=== PATIENT | male | born 1945 | race Caucasian/White ===

== ENCOUNTER → 2019-06-13 15:31 | Outpatient (CLI) | payer OTHER, SELFPAY ==
--- NOTE | 2019-06-13 | DI.ECHO.S_ITS ---
[place] +---------+ : : [address] : [address] [address] : : : : [id number] : : : : Phone: [phone]+ Echocardiogram Report + + :Name: NEY ARCHER Study Date: 06/13/2019 Height: 70 in : :[facility] Weight: 240 lb : : Gender: Male BSA: 2.3 m2 : :: 1945 Age: 74 yrs BP: 100/74 mmHg: :Reason For Study: QTC : : Performed By: Sonam Hill : :Referring: NEY MCCOY : + + Interpretation Summary The patient was in a fib/flutter during the exam. The study quality was technically difficult. There is mild proximal septal thickening noted. The left ventricular ejection fraction is normal. There are no obvious focal wall motion abnormalities noted but poor endocardial definition reduces the sensitivity for the detection of such. Borderline right ventricular enlargement. The right ventricular systolic function is normal. The right ventricular systolic pressure is estimated to be at least 36 mmHg based on an estimated right atrial pressure of 3 mm Hg. Moderate left atrial enlargement. No hemodynamically significant valvular abnormalities. There is no prior echocardiogram noted for this patient. Procedure: A two-dimensional transthoracic echocardiogram with color flow and Doppler was performed. There is no prior echocardiogram noted for this patient. The study quality was technically difficult. The heart rate ranged between 78-91 bpm during the study. The patient was in a fib/flutter during the exam. Left Ventricle: The left ventricle is normal in size. There is mild proximal septal thickening noted. The ejection fraction is estimated to be 60-65%. The left ventricular ejection fraction is normal. There are no obvious focal wall motion abnormalities noted but poor endocardial definition reduces the sensitivity for the detection of such. Diastolic function could not be accurately assessed due to atrial fibrillation. Right Ventricle: Borderline right ventricular enlargement. The right ventricular systolic function is normal. Atria: The left atrium is moderately dilated. The right atrium is mildly dilated. There is no Doppler evidence for an interatrial shunt. Mitral Valve: The mitral valve is grossly normal. There is mild mitral annular calcification. There is no mitral valve stenosis. There is mild mitral regurgitation. Aortic Valve: The aortic valve opens well. The aortic valve is trileaflet. The aortic valve is grossly normal. There is no aortic valve stenosis. Tricuspid Valve: The tricuspid valve leaflets are thin and pliable. There is mild tricuspid regurgitation. The right ventricular systolic pressure is estimated to be at least 36 mmHg based on an estimated right atrial pressure of 3 mm Hg. Pulmonic Valve: The pulmonic valve is not well seen, but is grossly normal. There is trace pulmonic regurgitation. Great Vessels: The aortic root is normal size. The ascending aorta is at the upper limits of normal in size. The aortic arch is mildly enlarged. The IVC is of normal diameter and collapses greater than 50% with a sniff. This suggests a low right atrial pressure of 3 mm Hg. Pericardium/ Pleura There is no pericardial effusion. There is no pleural effusion. MMode/2D Measurements & Calculations LVIDd: 4.8 cm Ao root diam: 3.4 cm LVIDs: 2.9 cm Aortic Jxn: 2.7 cm FS: 41.0 % asc Aorta Diam: 3.7 cm EPSS: 0.40 cm Ao Arch Diam (Prox Trans): 3.4 cm IVSd: 1.0 cm LVPWd: 0.83 cm LV jones. diameter/BSA (cm/m^2): 2.1 LV sys. diameter/BSA (cm/m^2): 1.3 LA dimension: 5.0 cm RA long axis: 5.9 cm LA A2 area: 27.9 cm2 RA area: 24.4 cm2 LA A4 area: 28.5 cm2 RA vol: 85.9 ml LA length (vol): 6.4 cm RA : 38.1 ml/m2 LA vol: 105.1 ml IVC diam: 1.6 cm LA vol index: 46.6 ml/m2 RVDd major: 6.6 cm RVD1 (basal): 4.8 cm RVD2 (mid): 4.1 cm Doppler Measurements & Calculations Ao V2 max: 182.7 cm/sec MV E max kenton: 119.9 cm/sec Ao V2 mean: 119.3 cm/sec MV A max kenton: 49.5 cm/sec Ao max P.3 mmHg MV E/A: 2.4 Ao mean P.5 mmHg Med Peak E' Kenton: 9.4 cm/sec Ao V2 VTI: 31.1 cm E/E' med: 12.8 Lat Peak E' Kenton: 12.7 cm/sec E/E' lat: 9.4 E/e' average: 11.1 MV dec time: 0.18 sec MV P1/2t: 52.3 msec TR max kenton: 289.2 cm/sec MV P1/2t max kenton: 119.3 cm/sec TR max P.4 mmHg MVA(P1/2t): 4.2 cm2 PA V2 max: 96.2 cm/sec PA V2 mean: 64.8 cm/sec PA mean P.9 mmHg PA Accel Time: 0.14 sec Electronically signed by: Omar Alejandra M.D. on Reading Physician:06/13/2019 07:27 PM
== END ==
PROVIDERS: Family Provider Family Medicine; PCP Family Medicine; Visit Provider Physician Assistant
DX: I08.1 Rheumatic disorders of both mitral and tricuspid valves (principal); I25.5 Ischemic cardiomyopathy
CPT/HCPCS: 93306

== ENCOUNTER 2021-02-18 12:14 | Inpatient (IN) | payer MEDICARE, OTHER, SELFPAY ==
[2021-02-18] VITALS (11 sets, daily range): BP systolic 136–160; BP diastolic 77–103; PULSE 87–103; RESP 17–34; TEMP 36.6–37.2; O2SAT 86–97; BMI 37.3; BMI 34.7
--- NOTE | 2021-02-18 12:38 | DI.RAD.S_ITS ---
PROCEDURE: XR CHEST 1V INDICATIONS: suspected sepsis TECHNIQUE: One view of the chest was acquired. COMPARISON: [facility] [place], CR, SPINE CERVICAL 2 OR 3VW, 02/24/2017, 15:14. FINDINGS: Surgical changes and devices: None. Lungs and pleura: Scattered subsegmental scarring and/or atelectasis. No acute consolidation. No pleural effusions or pneumothorax. Low lung volumes. Mediastinum: Mediastinal contours appear normal. Heart size is normal. Bones and chest wall: No suspicious bony lesions. Overlying soft tissues appear unremarkable. IMPRESSION: Scattered subsegmental atelectasis and/or scarring. No focal consolidation. If there is persistent clinical diagnostic uncertainty, continued surveillance with short interval radiographic followup after treatment is recommended. Dictated by: Garrick Qureshi M.D. on 02/18/2021 at 13:37 Approved by: Garrick Qureshi M.D. on 02/18/2021 at 13:39
[2021-02-18] MEDS: SODIUM CHLORIDE 0.9% 1,000 ML 1000 ML IV (12:54)
[2021-02-18 12:55] LABS: Add Manual Diff / Slide Review NO; Basophils Absolute Auto 100 /uL (0-100); Basophils Percent Auto 0.5 % (0-2); Eosinophils Absolute Auto 0 /uL (0-450); Eosinophils Percent Auto 0.3 % (2-4); Hematocrit 44.5 % (41-53); Hemoglobin 14.5 g/dL (13.5-17.5); Lymphocytes Absolute Auto 1400 /uL (1100-4500); Lymphocytes Percent Auto 10.1 % (25-40); Mean Corpuscular HGB Conc 32.5 % (30-36); Mean Corpuscular Hemoglobin 31.6 PG (26-34); Mean Corpuscular Volume 97.2 fL (80-100); Monocytes Absolute Auto 1200 /uL (0-900); Monocytes Percent Auto 8.6 % (3-14); Neutrophils Absolute Auto 11400 /uL (1500-7000); Neutrophils Percent Auto 80.5 % (50-75); Platelet Count 160 X10^3/uL (150-400); Red Blood Cell Count 4.58 X10^6/uL (4.5-5.9); Red Cell Distribution Width 14.8 % (11.6-14.8); White Blood Cell Count 14.2 X10^3/uL (4.5-11.0)
[2021-02-18 13:03] LABS: HCO3 ABG 37 mmol/L (22-26); Oxygen Saturation ABG 94 % (95-100); PCO2 ABG 65.8 mmHg (35-45); PO2 ABG 77 mmHg (80-100); TCO2 ABG 39 mmol/L (21-31); pH ABG 7.36 (7.35-7.45)
[2021-02-18 13:05] LABS: Alanine Aminotransferase 75 IU/L (<50); Albumin 3.7 g/dL (3.5-5.0); Albumin Globulin Ratio 1.2 (1.0-2.8); Alkaline Phosphatase 157 U/L (38-126); Aspartate Aminotransferase 131 IU/L (17-59); BUN Creatinine Ratio 15.7 (6-22); Blood Urea Nitrogen 16 mg/dL (9-20); Carbon Dioxide 33 mmol/L (22-32); Chloride 95 mmol/L (98-107); Estimated Glomerular Filt Rate > 60.0 mL/min (>60); Globulin 3.2 g/dL (1.7-4.1); Glucose 206 mg/dL (80-110); HEMOLYSIS < 15 (0-50); Lipase 21 U/L (23-300); Sodium 134 mmol/L (137-145); Total Protein 6.9 g/dL (6.3-8.2)
[2021-02-18 13:05] LABS: Fractionated Inspired Oxygen 30
[2021-02-18 13:06] LABS: Lactate (Lactic Acid) 1.1 mmol/L (0.7-2.1)
[2021-02-18 13:21] LABS: Procalcitonin 0.21 ng/mL (<0.5)
--- NOTE | 2021-02-18 14:16 | CM.MNRNOTE ---
bought phone into patient to call his . was not home. pt left a message.
[2021-02-18 14:49] LABS: COVID19 - ADMIT (NP swab/PCR) Negative (Negative)
--- NOTE | 2021-02-18 15:34 | PC.NURSE ---
pt had liquid BM, was cleaned and removed from the [employer] intern and a brief was placed underneath him
[2021-02-18 16:16] LABS: Creatine Kinase 2612 U/L (55-170)
[2021-02-18 16:22] LABS: NT-proBNP (BNP-Adult 18+) 1450 pg/mL (<125); Troponin I 0.059 ng/mL (0.01-0.034)
--- NOTE | 2021-02-18 16:47 | DI.CT.S_ITS ---
PROCEDURE: CT ANGIO CHEST PE PROTOCOL INDICATIONS: fall 1 week ago, broken arm, ? PE TECHNIQUE: After the administration of intravenous contrast, 2 mm thick sections acquired from the pulmonary apices to the posterior costophrenic angles. 3-dimensional maximum intensity projection (MIP) coronal and sagittal reformats were then acquired through the thorax. For radiation dose reduction, the following was used: automated exposure control, adjustment of mA and/or kV according to patient size. COMPARISON: None. FINDINGS: Image quality: Excellent. Pulmonary arteries: Pulmonary arteries enlarged in size and measures up to 3.8 cm in main pulmonary trunk series 4, image 66. There are no intraluminal filling defects to suggest central pulmonary embolism. Lungs and pleura: There is biapical scarring. Scattered atelectasis in periphery of bilateral lung james are seen with small ill-defined airspace opacity in posterior medial right lower lobe concerning for small right lower lobe infiltrate. [id number] centrilobular emphysema is also seen. No pleural effusions or pneumothorax. Central and peripheral airways are patent. Mediastinum: Heart size is enlarged, without pericardial effusion. No mediastinal or hilar adenopathy. Thoracic aorta is normal in caliber and enhancement. Esophagus is normal in caliber, without hiatal hernia. Bones and chest wall: No suspicious bony lesions. Ribs and thoracic spine appear intact throughout. Thyroid gland is within normal limits. No axillary or supraclavicular adenopathy. Abdomen: Visualized upper abdominal solid organs appear normal in the early arterial phase of enhancement. IMPRESSION: 1. No evidence of pulmonary emboli. No thoracic aortic aneurysm or dissection. 2. Enlarged main pulmonary artery size concerning for pulmonary vascular hypertension. 3. Suggestion of small patchy infiltrate/atelectasis in posterior medial aspect of right lower lobe. Scattered atelectasis in periphery of bilateral lung james. [id number] centrilobular emphysema. 4. No gross mediastinal or hilar lymphadenopathy by size criteria. Dictated by: Lionel Kennedy M.D. on 02/18/2021 at 17:27 Approved by: Lionel Kennedy M.D. on 02/18/2021 at 17:35
--- NOTE | 2021-02-18 16:47 | DI.CT.S_ITS ---
PROCEDURE: CT ABDOMEN PELVIS W CON INDICATIONS: fall 1 week ago, broken arm, ? PE TECHNIQUE: After the administration of intravenous contrast, axial sections acquired from the lung bases to the pubic symphysis. Coronal and sagittal reformats were performed. For radiation dose reduction, the following was used: automated exposure control, adjustment of mA and/or kV according to patient size. COMPARISON: None. FINDINGS: Image quality: Excellent. Lung bases: Right basilar dependent atelectasis/small infiltrate is seen. Heart: Heart size is enlarged, no pericardial effusion. ABDOMEN: Liver: There is hepatic steatosis and hepatomegaly. No discrete hepatic lesion. Gallbladder: Unremarkable. Biliary ducts: Unremarkable. Pancreas: Unremarkable. Spleen: Unremarkable. Adrenal Glands: Unremarkable. Kidneys and Ureters: No obstructing renal stone or hydronephrosis. Exophytic cyst in midpole of left kidney is seen measures 2.8 cm in size. Stomach and Bowel: There is no bowel obstruction. Appendix is visualized and is within normal limits. Mild sigmoid colon wall thickening is seen. Sigmoid diverticulosis is seen, no evidence of acute diverticulitis. No gastric or small bowel wall thickening. No abscess collection. Peritoneum: No abnormal intraperitoneal fluid. No free air. Ventral Wall: No hernias. Abdominal Nodes: No retroperitoneal or mesenteric adenopathy by size criteria. Vessels: Aorta and inferior vena cava are normal in size. Moderate atherosclerotic calcifications in abdominal aorta is seen. PELVIS: Pelvic Organs: Unremarkable. Bladder: Unremarkable. Pelvic Nodes: No enlarged lymph nodes. Miscellaneous: No hernias are seen. Bones: Degenerative endplate changes are noted at T12-L1 and L1-2 levels. Degenerative disc disease at L4-5 and L5-S1 levels are also seen. IMPRESSION: 1. Finding is concerning for sigmoid colitis. Appendix is within normal limits. Sigmoid diverticulosis is seen without evidence of acute diverticulitis. No abscess collection. No free fluid or free air. 2. Hepatomegaly and hepatic steatosis. No discrete hepatic lesion. 3. Please refer to CT chest findings. 4. 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 Dictated by: Lionel Kennedy M.D. on 02/18/2021 at 17:36 Approved by: Lionel Kennedy M.D. on 02/18/2021 at 17:41
--- NOTE | 2021-02-18 16:52 | ED.SOB ---
HPI - SOB/Dyspnea General Chief Complaint: Altered Mental Status Stated Complaint: COPD exacerbation, recent fall. Time Seen by Provider: 02/18/21 12:48 Source: EMS Mode of arrival: EMS Limitations: altered mental status and physical limitation History of Present Illness HPI Narrative: This is a 75-year-old comes to the emergency department with complaint of fall today. Patient had a fall about 2 weeks ago was on the floor for approximately 1-2 days, family states he fell about 10 steps. His was gone because she is receiving chemotherapy and return home and found him. He went to [facility] was told he had a broken arm, possibly some cracked ribs and was discharged home. Patient has having difficulty getting about. He is having quite a bit pain. He has had increasing shortness of breath. He does have a known history of COPD is typically on 3 L nasal cannula. Patient has also been having bloody stools with diarrhea recently. Denies any lightheadedness. He denies any headache at this time. No neck pain. He does have some lower back discomfort. He has had some chronic back pain but this is worse than his typical. He denies any radiation down his legs. Patient does have some pain were he was told he had his ribs. Patient has not had any nausea or vomiting. His states that his mentation he has had some confusion. He has not been acutely worsening. He does have a history of CHF, hypertension and takes narcotics chronically. Related Data Home Medications Medication Instructions Recorded Confirmed albuterol sulfate 3 ml INH BID #0 10/13/16 01/22/21 alfuzosin 10 mg PO QDAY #0 10/13/16 01/22/21 calcium carbonate 1 tab PO BID #0 10/13/16 01/22/21 mirtazapine 30 mg PO HS #0 10/13/16 01/22/21 testosterone cypionate 100 mg IM #0 10/13/16 01/22/21 CPAP: CPAP/PAP Full Face Mask HS #0 01/08/17 CLONAZEPAM See Rx Instructions PO DIRECTED 01/22/21 GABAPENTIN See Rx Instructions PO DIRECTED 01/22/21 HYDROmorphone 1 mg/ml PO Q1H PRN 01/22/21 01/22/21 HYDROmorphone See Rx Instructions PO Q3H PRN 01/22/21 01/22/21 alfuzosin 10 mg tablet,extended 10 mg PO DAILY 01/22/21 01/22/21 release 24 hr amlodipine 2.5 mg tablet 2.5 mg PO DAILY 01/22/21 01/22/21 aspirin 81 mg tablet,delayed 81 mg PO DAILY 01/22/21 01/22/21 release atorvastatin 40 mg tablet 40 mg PO BEDTIME 01/22/21 01/22/21 fluoxetine See Rx Instructions PO DAILY 01/22/21 01/22/21 guaifenesin 600 mg tablet, 600 mg PO BID 01/22/21 01/22/21 extended release 12 hr multivitamin with minerals 1 tab PO DAILY 01/22/21 01/22/21 naphazoline-pheniramine 0.13975 drp EYE-BOTH QID PRN ml 01/22/21 01/22/21 %-0.315 % eye drops nitroglycerin 0.4 mg sublingual 0.4 mg SUBLINGUAL Q5-15M PRN 01/22/21 01/22/21 tablet omeprazole 20 mg capsule,delayed 20 mg PO DAILY 01/22/21 01/22/21 release salmeterol 50 mcg/dose blister 1 inh INHALATION Q12H 01/22/21 01/22/21 powder for inhalation tiotropium bromide 18 mcg capsule 1 cap INHALATION DAILY 01/22/21 01/22/21 with inhalation device Allergies Allergy/AdvReac Type Severity Reaction Status Date / Time zolpidem [From AMBIEN] Allergy Severe [place] Verified 02/18/21 18:39 FLASH BACKS oxycodone Allergy Unknown Verified 02/18/21 18:39 tapentadol [TAPENTADOL] AdvReac Intermediate DON'T USE Verified 02/18/21 18:39 PLASTIC TAPE - SKIN FIREY RED Review of Systems Review of Systems ROS Unobtainable: All systems reviewed & are unremarkable except as noted in HPI and below Patient History Medical History Anxiety Atherosclerotic heart disease of [place] coronary artery without angina pectoris Benign prostatic hyperplasia with lower urinary tract symptoms Cervicalgia Chronic asthma Chronic obstructive pulmonary disease with (acute) exacerbation Depression Essential (primary) hypertension Gastro-esophageal reflux disease without esophagitis Hypoxemia Impaired fasting glucose Lesion of ulnar nerve, 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 Neuropathy Obstructive sleep apnea Other allergic rhinitis Other specified pulmonary heart diseases Polycythemia PTSD (post-traumatic stress disorder) Social History Smoking Status: Current every day smoker Smoking Status: Current every day smoker Substance Use Type: does not use Exam Narrative Exam Narrative: GEN: Patient appears in moderate distress. Patient is on nasal cannula in the room. HEAD: No evidence of trauma, no raccoon/Cruz sign. NECK: Nontender, painless range of motion, trachea midline Negative Nexus criteria, there is no mid line tenderness, distracting injury, altered mental status, neuro deficit, recent EtOH. EYES: PERRLA, EOMI ENT: External inspection normal, trachea is midline, Nares are clear, no septal hematoma, no dental or oral injury, airway is normal and with normal occlusion, No bony tenderness RESP: Chest is nontender and has symmetric movement, no ecchymosis, breath sounds are normal no crackles, wheezes or rales CVS: Heart sounds are normal, no murmur noted, No JVD. ABG/GI: Nontender, soft, normal bowel sounds, no distention, no organomegaly, pelvic rock is negative. Stool occult, NEURO: Oriented AOx3, neuro is grossly intact, sensation and motor is normal all 4 extremities moving, cranial nerves II through XII are intact, GCS is 15 PSYCH: Normal mood and affect SKIN: Intact, warm and dry, no crepitus and without decubitus BACK: No CVA tenderness, no vertebral tenderness, no step-off's, no crepitus EXT: Patient has ecchymosis on his left hip and flank. Hips are nontender, no pedal edema, normal color and temperature, patient has sensation all 4 extremities. He has a laceration on his left leg which appears healing. Well as a laceration on his foot Initial Vital Signs Initial Vital Signs: Vital Signs Temperature 98.9 F 02/18/21 12:20 Pulse Rate 102 H 02/18/21 12:20 Respiratory Rate 19 02/18/21 12:20 Blood Pressure 154/97 H 02/18/21 12:20 Pulse Oximetry 96 02/18/21 12:20 Course Orders Ordered: ED Orders 02/18/21 12:38 XR chest 1V Stat EKG-12 Lead Stat RT Consult Eval and Treat Now 02/18/21 12:45 Complete Blood Count AUTO DIFF Stat Comprehensive Metabolic Panel Stat Lactate (Lactic Acid) Stat Lipase Stat NT-proBNP (BNP-Adult 18+) Stat Procalcitonin Stat Troponin & CK Cardiac Panel Stat 02/18/21 12:54 ABG [Arterial Blood Gas] Stat 02/18/21 13:05 Blood Culture Stat 02/18/21 13:50 COVID19 - ADMIT (FINISHER MAP AND CHART swab/PCR) Stat 02/18/21 16:47 CT abdomen pelvis w con Stat CT angio chest PE protocol Stat 02/18/21 17:00 GI Panel (Film Array) Stat 02/18/21 17:31 Hemoglobin and Hematocrit Stat Troponin & CK Cardiac Panel Stat Type and Screen Stat VBG [Venous Blood Gas] Stat Acetaminophen (Acetaminophen 325 Mg Tablet) 650 mg PO Q6HR PRN PRN Reason: Fever/Mild Pain (1-3) Naloxone HCl (Naloxone 0.4 Mg/Ml Vial) 0.2 mg IV Q2MIN PRN PRN Reason: Opiate Reversal Ondansetron HCl (Ondansetron 4 Mg/2 Ml Inj) 4 mg IV Q8HR PRN PRN Reason: Nausea And Vomiting Prednisone (Prednisone 20 Mg Tablet) 40 mg PO DAILY ANGELITA Discontinued Medications Fentanyl (Fentanyl 100 Mcg/2 Ml Inj) 50 mcg IV NOW ONE Stop: 02/18/21 17:54 Last Admin: 02/18/21 18:26 Dose: 50 mcg Documented by: TEODORA Furosemide (Furosemide 40 Mg/4 Ml Vial) 40 mg IV NOW ONE Stop: 02/18/21 16:50 Last Admin: 02/18/21 17:46 Dose: 40 mg Documented by: VEL Sodium Chloride (Normal Saline 0.9%) 1,000 mls @ 1,000 mls/hr IV BOLUS ONE Stop: 02/18/21 13:33 Last Infusion: 02/18/21 15:38 Dose: 0 mls/hr Documented by: Admin: 02/18/21 12:54 Dose: 1,000 mls/hr Documented by: TRIXIE Piperacillin Sod/Tazobactam (Sod 4.5 gm/ Sodium Chloride) 100 mls @ 200 mls/hr IV NOW ONE Stop: 02/18/21 17:42 Last Infusion: 02/18/21 18:39 Dose: 0 mls/hr Documented by: Admin: 02/18/21 18:01 Dose: 200 mls/hr Documented by: VEL Methylprednisolone (Methylprednisolone 125 Mg/2 Ml Vial) 125 mg IV NOW ONE Stop: 02/18/21 16:53 Last Admin: 02/18/21 17:41 Dose: 125 mg Documented by: VEL Morphine Sulfate (Morphine 4 Mg/Ml Inj) 4 mg IV NOW ONE Stop: 02/18/21 16:50 Last Admin: 02/18/21 18:48 Dose: Not Given Documented by: EMIL Vital Signs Vital signs: Vital Signs - 8 hr 02/18/21 12:20 02/18/21 15:38 02/18/21 16:59 Temperature 98.9 F Pulse Rate 102 H 89 94 H Respiratory Rate 19 34 H 21 Blood Pressure 154/97 H 138/80 Pulse Oximetry 96 95 94 02/18/21 17:00 02/18/21 17:01 02/18/21 17:30 Temperature Pulse Rate 94 H 95 H 88 Respiratory Rate 25 H 22 21 Blood Pressure 136/88 Pulse Oximetry 94 94 96 02/18/21 18:00 02/18/21 18:30 02/18/21 18:31 Temperature Pulse Rate 94 H 89 87 Respiratory Rate 20 23 17 Blood Pressure 147/77 H Pulse Oximetry 91 90 L 86 L MDM - SOB/Dyspnea Lab Data Attestation: I reviewed the patient's lab results. Result diagrams: 02/18/21 17:31 02/18/21 12:45 Labs: Lab Results 02/18/21 02/18/21 02/18/21 Range/Units 12:45 12:45 12:45 WBC 14.2 H (4.5-11.0) X10^3/uL RBC 4.58 (4.5-5.9) X10^6/uL Hgb 14.5 (13.5-17.5) g/dL Hct 44.5 (41-53) % MCV 97.2 (80-100) fL MCH 31.6 (26-34) PG MCHC 32.5 (30-36) % RDW 14.8 (11.6-14.8) % Plt Count 160 (150-400) X10^3/uL Neut % (Auto) 80.5 H (50-75) % Lymph % (Auto) 10.1 L (25-40) % [place] % (Auto) 8.6 (3-14) % Eos % (Auto) 0.3 L (2-4) % Baso % (Auto) 0.5 (0-2) % Neut # (Auto) 78710 H (7598-7498) /uL Lymph # (Auto) 1400 (5052-6178) /uL [place] # (Auto) 1200 H (0-900) /uL Eos # (Auto) 0 (0-450) /uL Baso # (Auto) 100 (0-100) /uL ABG pH (7.35-7.45) ABG pCO2 (35-45) mmHg ABG pO2 (80-100) mmHg ABG HCO3 (22-26) mmol/L ABG Total CO2 (21-31) mmol/L ABG O2 Saturation (95-100) % ABG Base Excess (-2-2) mmol/L FiO2 Sodium 134 L (137-145) mmol/L Potassium 4.0 (3.4-5.1) mmol/L Chloride 95 L (98-107) mmol/L Carbon Dioxide 33 H (22-32) mmol/L BUN 16 (9-20) mg/dL Creatinine 1.02 (0.66-1.25) mg/dL Estimated GFR > 60.0 (>60) mL/min BUN/Creatinine Ratio 15.7 (6-22) Glucose 206 H (80-110) mg/dL Lactate 1.1 (0.7-2.1) mmol/L Calcium 9.0 (8.4-10.2) mg/dL Total Bilirubin 1.0 (0.2-1.3) mg/dL AST 131 H (17-59) IU/L ALT 75 H (<50) IU/L Alkaline Phosphatase 157 H (38-126) U/L Total Creatine Kinase (55-170) U/L CK-MB (CK-2) (<2.37) ng/mL CK-MB (CK-2) Rel Index (1.5-5.0) % Troponin I (0.01-0.034) ng/mL NT-Pro-B Natriuret Pep (<125) pg/mL Total Protein 6.9 (6.3-8.2) g/dL Albumin 3.7 (3.5-5.0) g/dL Globulin 3.2 (1.7-4.1) g/dL Albumin/Globulin Ratio 1.2 (1.0-2.8) Lipase 21 L (23-300) U/L Procalcitonin 0.21 (<0.5) ng/mL Stl C. cayetanensis PCR (Not Detect) Stool Rotavirus (PCR) (Not Detect) Stool Adenovirus (PCR) (Not Detect) Stool Astrovirus (PCR) (Not Detect) Stool Cryptosporidium PCR (Not Detect) Stl E.coli Shiga Tox PCR (Not Detect) St Sh/Enteroin Ecoli PCR (Not Detect) Stool E coli O157 PCR Stl Enterotoxigenic E PCR (Not Detect) Stool EPEC (PCR) (Not Detect) Stl E. histolytica PCR (Not Detect) Stool Giardia Lamblia PCR (Not Detect) Stool Sapovirus (PCR) (Not Detect) Stl P. shigelloides PCR (Not Detect) St Y.enterocolitica PCR (Not Detect) Stool Vibrio (PCR) (Not Detect) Stl Vibrio cholerae PCR (Not Detect) Stl Enteroaggr Ecoli PCR (Not Detect) Stl Norovirus GI/GII PCR (Not Detect) Campylobacter (PCR) (Not Detect) C. difficile Tox (PCR) (Not Detect) SARS-CoV-2 (PCR) (Negative) Salmonella (PCR) (Not Detect) Blood Type Antibody Screen 02/18/21 02/18/21 02/18/21 Range/Units 12:45 12:54 13:50 WBC (4.5-11.0) X10^3/uL RBC (4.5-5.9) X10^6/uL Hgb (13.5-17.5) g/dL Hct (41-53) % MCV (80-100) fL MCH (26-34) PG MCHC (30-36) % RDW (11.6-14.8) % Plt Count (150-400) X10^3/uL Neut % (Auto) (50-75) % Lymph % (Auto) (25-40) % [place] % (Auto) (3-14) % Eos % (Auto) (2-4) % Baso % (Auto) (0-2) % Neut # (Auto) (8900-9085) /uL Lymph # (Auto) (7750-8689) /uL [place] # (Auto) (0-900) /uL Eos # (Auto) (0-450) /uL Baso # (Auto) (0-100) /uL ABG pH 7.36 (7.35-7.45) ABG pCO2 65.8 H* (35-45) mmHg ABG pO2 77 L (80-100) mmHg ABG HCO3 37 H (22-26) mmol/L ABG Total CO2 39 H (21-31) mmol/L ABG O2 Saturation 94 L (95-100) % ABG Base Excess 12.0 H (-2-2) mmol/L FiO2 30 Sodium (137-145) mmol/L Potassium (3.4-5.1) mmol/L Chloride (98-107) mmol/L Carbon Dioxide (22-32) mmol/L BUN (9-20) mg/dL Creatinine (0.66-1.25) mg/dL Estimated GFR (>60) mL/min BUN/Creatinine Ratio (6-22) Glucose (80-110) mg/dL Lactate (0.7-2.1) mmol/L Calcium (8.4-10.2) mg/dL Total Bilirubin (0.2-1.3) mg/dL AST (17-59) IU/L ALT (<50) IU/L Alkaline Phosphatase (38-126) U/L Total Creatine Kinase 2612 H (55-170) U/L CK-MB (CK-2) 4.15 H (<2.37) ng/mL CK-MB (CK-2) Rel Index 0.2 L (1.5-5.0) % Troponin I 0.059 H (0.01-0.034) ng/mL NT-Pro-B Natriuret Pep 1450 H (<125) pg/mL Total Protein (6.3-8.2) g/dL Albumin (3.5-5.0) g/dL Globulin (1.7-4.1) g/dL Albumin/Globulin Ratio (1.0-2.8) Lipase (23-300) U/L Procalcitonin (<0.5) ng/mL Stl C. cayetanensis PCR (Not Detect) Stool Rotavirus (PCR) (Not Detect) Stool Adenovirus (PCR) (Not Detect) Stool Astrovirus (PCR) (Not Detect) Stool Cryptosporidium PCR (Not Detect) Stl E.coli Shiga Tox PCR (Not Detect) St Sh/Enteroin Ecoli PCR (Not Detect) Stool E coli O157 PCR Stl Enterotoxigenic E PCR (Not Detect) Stool EPEC (PCR) (Not Detect) Stl E. histolytica PCR (Not Detect) Stool Giardia Lamblia PCR (Not Detect) Stool Sapovirus (PCR) (Not Detect) Stl P. shigelloides PCR (Not Detect) St Y.enterocolitica PCR (Not Detect) Stool Vibrio (PCR) (Not Detect) Stl Vibrio cholerae PCR (Not Detect) Stl Enteroaggr Ecoli PCR (Not Detect) Stl Norovirus GI/GII PCR (Not Detect) Campylobacter (PCR) (Not Detect) C. difficile Tox (PCR) (Not Detect) SARS-CoV-2 (PCR) Negative (Negative) Salmonella (PCR) (Not Detect) Blood Type Antibody Screen 02/18/21 02/18/21 02/18/21 Range/Units 17:00 17:31 17:31 WBC (4.5-11.0) X10^3/uL RBC (4.5-5.9) X10^6/uL Hgb 14.0 (13.5-17.5) g/dL Hct 43.2 (41-53) % MCV (80-100) fL MCH (26-34) PG MCHC (30-36) % RDW (11.6-14.8) % Plt Count (150-400) X10^3/uL Neut % (Auto) (50-75) % Lymph % (Auto) (25-40) % [place] % (Auto) (3-14) % Eos % (Auto) (2-4) % Baso % (Auto) (0-2) % Neut # (Auto) (1385-0759) /uL Lymph # (Auto) (3386-1722) /uL [place] # (Auto) (0-900) /uL Eos # (Auto) (0-450) /uL Baso # (Auto) (0-100) /uL ABG pH (7.35-7.45) ABG pCO2 (35-45) mmHg ABG pO2 (80-100) mmHg ABG HCO3 (22-26) mmol/L ABG Total CO2 (21-31) mmol/L ABG O2 Saturation (95-100) % ABG Base Excess (-2-2) mmol/L FiO2 Sodium (137-145) mmol/L Potassium (3.4-5.1) mmol/L Chloride (98-107) mmol/L Carbon Dioxide (22-32) mmol/L BUN (9-20) mg/dL Creatinine (0.66-1.25) mg/dL Estimated GFR (>60) mL/min BUN/Creatinine Ratio (6-22) Glucose (80-110) mg/dL Lactate (0.7-2.1) mmol/L Calcium (8.4-10.2) mg/dL Total Bilirubin (0.2-1.3) mg/dL AST (17-59) IU/L ALT (<50) IU/L Alkaline Phosphatase (38-126) U/L Total Creatine Kinase 2190 H (55-170) U/L CK-MB (CK-2) 3.09 H (<2.37) ng/mL CK-MB (CK-2) Rel Index 0.1 L (1.5-5.0) % Troponin I 0.048 H (0.01-0.034) ng/mL NT-Pro-B Natriuret Pep (<125) pg/mL Total Protein (6.3-8.2) g/dL Albumin (3.5-5.0) g/dL Globulin (1.7-4.1) g/dL Albumin/Globulin Ratio (1.0-2.8) Lipase (23-300) U/L Procalcitonin (<0.5) ng/mL Stl C. cayetanensis PCR Not detected (Not Detect) Stool Rotavirus (PCR) Not detected (Not Detect) Stool Adenovirus (PCR) Not detected (Not Detect) Stool Astrovirus (PCR) Not detected (Not Detect) Stool Cryptosporidium PCR Not detected (Not Detect) Stl E.coli Shiga Tox PCR Not detected (Not Detect) St Sh/Enteroin Ecoli PCR Not detected (Not Detect) Stool E coli O157 PCR Not Reportable Stl Enterotoxigenic E PCR Not detected (Not Detect) Stool EPEC (PCR) Not detected (Not Detect) Stl E. histolytica PCR Not detected (Not Detect) Stool Giardia Lamblia PCR Not detected (Not Detect) Stool Sapovirus (PCR) Not detected (Not Detect) Stl P. shigelloides PCR Not detected (Not Detect) St Y.enterocolitica PCR Not detected (Not Detect) Stool Vibrio (PCR) Not detected (Not Detect) Stl Vibrio cholerae PCR Not detected (Not Detect) Stl Enteroaggr Ecoli PCR Not detected (Not Detect) Stl Norovirus GI/GII PCR Not detected (Not Detect) Campylobacter (PCR) Not detected (Not Detect) C. difficile Tox (PCR) Not detected (Not Detect) SARS-CoV-2 (PCR) (Negative) Salmonella (PCR) Not detected (Not Detect) Blood Type Antibody Screen 02/18/21 Range/Units 17:31 WBC (4.5-11.0) X10^3/uL RBC (4.5-5.9) X10^6/uL Hgb (13.5-17.5) g/dL Hct (41-53) % MCV (80-100) fL MCH (26-34) PG MCHC (30-36) % RDW (11.6-14.8) % Plt Count (150-400) X10^3/uL Neut % (Auto) (50-75) % Lymph % (Auto) (25-40) % [place] % (Auto) (3-14) % Eos % (Auto) (2-4) % Baso % (Auto) (0-2) % Neut # (Auto) (9860-9570) /uL Lymph # (Auto) (4791-5145) /uL [place] # (Auto) (0-900) /uL Eos # (Auto) (0-450) /uL Baso # (Auto) (0-100) /uL ABG pH (7.35-7.45) ABG pCO2 (35-45) mmHg ABG pO2 (80-100) mmHg ABG HCO3 (22-26) mmol/L ABG Total CO2 (21-31) mmol/L ABG O2 Saturation (95-100) % ABG Base Excess (-2-2) mmol/L FiO2 Sodium (137-145) mmol/L Potassium (3.4-5.1) mmol/L Chloride (98-107) mmol/L Carbon Dioxide (22-32) mmol/L BUN (9-20) mg/dL Creatinine (0.66-1.25) mg/dL Estimated GFR (>60) mL/min BUN/Creatinine Ratio (6-22) Glucose (80-110) mg/dL Lactate (0.7-2.1) mmol/L Calcium (8.4-10.2) mg/dL Total Bilirubin (0.2-1.3) mg/dL AST (17-59) IU/L ALT (<50) IU/L Alkaline Phosphatase (38-126) U/L Total Creatine Kinase (55-170) U/L CK-MB (CK-2) (<2.37) ng/mL CK-MB (CK-2) Rel Index (1.5-5.0) % Troponin I (0.01-0.034) ng/mL NT-Pro-B Natriuret Pep (<125) pg/mL Total Protein (6.3-8.2) g/dL Albumin (3.5-5.0) g/dL Globulin (1.7-4.1) g/dL Albumin/Globulin Ratio (1.0-2.8) Lipase (23-300) U/L Procalcitonin (<0.5) ng/mL Stl C. cayetanensis PCR (Not Detect) Stool Rotavirus (PCR) (Not Detect) Stool Adenovirus (PCR) (Not Detect) Stool Astrovirus (PCR) (Not Detect) Stool Cryptosporidium PCR (Not Detect) Stl E.coli Shiga Tox PCR (Not Detect) St Sh/Enteroin Ecoli PCR (Not Detect) Stool E coli O157 PCR Stl Enterotoxigenic E PCR (Not Detect) Stool EPEC (PCR) (Not Detect) Stl E. histolytica PCR (Not Detect) Stool Giardia Lamblia PCR (Not Detect) Stool Sapovirus (PCR) (Not Detect) Stl P. shigelloides PCR (Not Detect) St Y.enterocolitica PCR (Not Detect) Stool Vibrio (PCR) (Not Detect) Stl Vibrio cholerae PCR (Not Detect) Stl Enteroaggr Ecoli PCR (Not Detect) Stl Norovirus GI/GII PCR (Not Detect) Campylobacter (PCR) (Not Detect) C. difficile Tox (PCR) (Not Detect) SARS-CoV-2 (PCR) (Negative) Salmonella (PCR) (Not Detect) Blood Type O Positive Antibody Screen Negative Point of Care Testing Stool Occult Blood Positive Glucose POC 241 Urine Dip Bedside Urine Glucose Negative Bedside Urine Bilirubin - Negative Bedside Urine Ketone - Negative Urine Specific [place] 1.010 Bedside Urine Occult Blood - Negative Bedside Urine pH 6.0 Bedside Urine Protein - Negative Bedside Urine Urobilinogen - Negative Bedside Urine Nitrite - Negative Bedside Urine Leukocytes - Negative Esterase Imaging Data CT scan - chest: Radiologist's Impression: Cody Hermosillo 75 M [address] [id number] Scan ReportSigned Patient: Cody Hermosillo [facility]#: [id number]: 1945cct:[id number]/Sex: 75 / MDate of Service: 02/18/21Loc: EDAccession Number: [id number] Procedure: CT angio chest PE protocol Ordering Provider: Kandace Thomas D.O. PROCEDURE: CT ANGIO CHEST PE PROTOCOL INDICATIONS: fall 1 week ago, broken arm, ? PE TECHNIQUE: After the administration of intravenous contrast, 2 mm thick sections acquired from the pulmonary apices to the posterior costophrenic angles. 3-dimensional maximum intensity projection (MIP) coronal and sagittal reformats were then acquired through the thorax. For radiation dose reduction, the following was used: automated exposure control, adjustment of mA and/or kV according to patient size. COMPARISON: None. FINDINGS: Image quality: Excellent. Pulmonary arteries: Pulmonary arteries enlarged in size and measures up to 3.8 cm in main pulmonary trunk series 4, image 66. There are no intraluminal filling defects to suggest central pulmonary embolism. Lungs and pleura: There is biapical scarring. Scattered atelectasis in periphery of bilateral lung james are seen with small ill-defined airspace opacity in posterior medial right lower lobe concerning for small right lower lobe infiltrate. [id number] centrilobular emphysema is also seen. No pleural effusions or pneumothorax. Central and peripheral airways are patent. Mediastinum: Heart size is enlarged, without pericardial effusion. No mediastinal or hilar adenopathy. Thoracic aorta is normal in caliber and enhancement. Esophagus is normal in caliber, without hiatal hernia. Bones and chest wall: No suspicious bony lesions. Ribs and thoracic spine appear intact throughout. Thyroid gland is within normal limits. No axillary or supraclavicular adenopathy. Abdomen: Visualized upper abdominal solid organs appear normal in the early arterial phase of enhancement. IMPRESSION: 1. No evidence of pulmonary emboli. No thoracic aortic aneurysm or dissection. 2. Enlarged main pulmonary artery size concerning for pulmonary vascular hypertension. 3. Suggestion of small patchy infiltrate/atelectasis in posterior medial aspect of right lower lobe. Scattered atelectasis in periphery of bilateral lung james. [id number] centrilobular emphysema. 4. No gross mediastinal or hilar lymphadenopathy by size criteria. Dictated by: Lionel Kennedy M.D. on 02/18/2021 at 17:27 Approved by: Lionel Kennedy M.D. on 02/18/2021 at 17:35 CT scan - abdomen/pelvis: Radiologist's Impression: [address] [id number] Scan ReportSigned Patient: Cody Hermosillo [facility]#: [id number]: 1945cct:[id number]/Sex: 75 / MDate of Service: 02/18/21Loc: EDAccession Number: [id number] Procedure: CT abdomen pelvis w con Ordering Provider: Kandace Thomas D.O. PROCEDURE: CT ABDOMEN PELVIS W CON INDICATIONS: fall 1 week ago, broken arm, ? PE TECHNIQUE: After the administration of intravenous contrast, axial sections acquired from the lung bases to the pubic symphysis. Coronal and sagittal reformats were performed. For radiation dose reduction, the following was used: automated exposure control, adjustment of mA and/or kV according to patient size. COMPARISON: None. FINDINGS: Image quality: Excellent. Lung bases: Right basilar dependent atelectasis/small infiltrate is seen. Heart: Heart size is enlarged, no pericardial effusion. ABDOMEN: Liver: There is hepatic steatosis and hepatomegaly. No discrete hepatic lesion. Gallbladder: Unremarkable. Biliary ducts: Unremarkable. Pancreas: Unremarkable. Spleen: Unremarkable. Adrenal Glands: Unremarkable. Kidneys and Ureters: No obstructing renal stone or hydronephrosis. Exophytic cyst in midpole of left kidney is seen measures 2.8 cm in size. Stomach and Bowel: There is no bowel obstruction. Appendix is visualized and is within normal limits. Mild sigmoid colon wall thickening is seen. Sigmoid diverticulosis is seen, no evidence of acute diverticulitis. No gastric or small bowel wall thickening. No abscess collection. Peritoneum: No abnormal intraperitoneal fluid. No free air. Ventral Wall: No hernias. Abdominal Nodes: No retroperitoneal or mesenteric adenopathy by size criteria. Vessels: Aorta and inferior vena cava are normal in size. Moderate atherosclerotic calcifications in abdominal aorta is seen. PELVIS: Pelvic Organs: Unremarkable. Bladder: Unremarkable. Pelvic Nodes: No enlarged lymph nodes. Miscellaneous: No hernias are seen. Bones: Degenerative endplate changes are noted at T12-L1 and L1-2 levels. Degenerative disc disease at L4-5 and L5-S1 levels are also seen. IMPRESSION: 1. Finding is concerning for sigmoid colitis. Appendix is within normal limits. Sigmoid diverticulosis is seen without evidence of acute diverticulitis. No abscess collection. No free fluid or free air. 2. Hepatomegaly and hepatic steatosis. No discrete hepatic lesion. 3. Please refer to CT chest findings. 4. 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 Dictated by: Lionel Kennedy M.D. on 02/18/2021 at 17:36 Approved by: Lionel Kennedy M.D. on 02/18/2021 at 17:41 ECG Data Attestation: I personally reviewed and interpreted this ECG as follows: Prior ECG tracings: available for review Interpretation: Atrial flutter. Rate of 97 QRS [address] elevation depression appreciated. Patient has prior EKG which was sinus rhythm from 2017 [facility] Narrative Medical decision making narrative: Male who comes in with likely failure to thrive. Patient had a fall approximately 1-2 weeks ago fell down 10 stairs and spent 1-2 days on the floor. His had been gone because she was receiving chemotherapy and when she returned home found him. He went to [facility]. Or tempting to get records but by the report had possible rib fractures and broken arm. Patient since then has had some increasing shortness of breath. He once again felt today. Patient is having increased pain in her his arm. He also has some description of low back pain. He does have some bruising on his left side. Patient has not had any fevers. He has not had any cough cold or congestion. He does have chronic respiratory failure and is normally on home O2 at approximately 3 L nasal cannula. Liver enzymes were slightly elevated. His troponin was indeterminate with an elevated BNP as well as his total CK. Total CK is likely from his initial fall but I do not have priors for comparison. Patient also had some bloody stool here in the department. Patient had CTA of the chest to rule out PE as he does have a recent upper extremity fracture, patient also had CT abdomen pelvis with his GI bleed and recent trauma. CTs show possibly patchy infiltrate/pneumonia, also shows a colitis in the sigmoid region. Patient has been tachypneic but his pressures have improved he was initially mildly tachycardic. He has had 2 episodes of bloody stool in department. Hemoglobin was repeated approximately 6 hours later as well as troponin and these have not had significant changes. Patient is in atrial flutter but has been rate controlled. Stool was sent for PCR, COVID is negative. Blood gas appears to show chronic respiratory failure but without hypoxemia on his normal oxygen. Dr. chase kindly accepts patient for admission. He received Lasix, Solu-Medrol for his COPD and CHF as well as a dose of Zosyn IV. Patient was not anticoagulated for his flutter secondary to his rectal bleeding. Discharge Plan Departure Patient Disposition: Admitted As Inpatient Clinical Impression: Colitis, CHF (congestive heart failure), Elevated CPK, Atrial flutter Admit Date/Time: 02/18/21 18:52 Admit Provider: Anisha Chase
[2021-02-18] MEDS: methylPREDNISolone 125 MG/2 ML VIAL IV (17:41)
[2021-02-18] MEDS: FUROSEMIDE 40 MG/4 ML VIAL IV (17:46)
[2021-02-18 17:53] LABS: Hematocrit 43.2 % (41-53)
[2021-02-18] MEDS: PIPERACILLIN/TAZO 4.5 GM in SODIUM CHLORIDE 0.9% 100 ML 200 ML IV (18:01)
[2021-02-18 18:13] LABS: Creatine Kinase 2190 U/L (55-170)
[2021-02-18 18:19] LABS: Troponin I 0.048 ng/mL (0.01-0.034)
[2021-02-18] MEDS: fentaNYL 100 MCG/2 ML INJ 50 MCG IV (18:26)
[2021-02-18 18:38] LABS: Adenovirus F 40/41 Not Detected (Not Detect); Astrovirus Not Detected (Not Detect); Campylobacter Not Detected (Not Detect); Clostridium difficile toxin AB Not Detected (Not Detect); Cryptosporidium Not Detected (Not Detect); Cyclospora cayetanensis Not Detected (Not Detect); Entamoeba histolytica Not Detected (Not Detect); Enteroaggregative E.coli Not Detected (Not Detect); Enteropathogenic E.coli Not Detected (Not Detect); Enterotoxigenic E.coli It/st Not Detected (Not Detect); Giardia lamblia Not Detected (Not Detect); Norovirus GI/GII Not Detected (Not Detect); Plesiomonsa shigelloides Not Detected (Not Detect); Rotavirus A Not Detected (Not Detect); Salmonella Not Detected (Not Detect); Shiga-like toxin-prod E.coli Not Detected (Not Detect); Shigella/Enteroinvasive E.coli Not Detected (Not Detect); Vibrio Not Detected (Not Detect); Vibrio cholerae Not Detected (Not Detect); Yersinia enterocolitica Not Detected (Not Detect)
[2021-02-18 18:39] LABS: Sapovirus Not Detected (Not Detect)
--- NOTE | 2021-02-18 19:08 | PC.NURSE ---
offered water at 190
[2021-02-18 19:30] LABS: CKMB % Relative Index 0.1 % (1.5-5.0); Creatine Kinase MB 3.09 ng/mL (<2.37)
[2021-02-18 19:31] LABS: CKMB % Relative Index 0.2 % (1.5-5.0); Creatine Kinase MB 4.15 ng/mL (<2.37)
--- NOTE | 2021-02-18 19:44 | P.HP_ITS ---
History of Present Illness History of Present Illness Date Patient Seen: 02/18/21 Time Patient Seen: 19:44 Chief complaint: COPD exacerbation, recent fall. Narrative: This is a 75-year-old male Cody Hermosillo presented to the ED today with chief complaint of fall today. Patient had a fall about 2 weeks ago was on the floor for approximately 1-2 days, family states he fell about 10 steps today. His was gone because she is receiving chemotherapy and return home and found him. He went to [place] was told he had a broken arm, possibly some cracked ribs and was discharged home. Patient has having difficulty getting about. He is having quite a bit pain. He has had increasing shortness of breath. Patient past medical history of COPD is typically on 3 L nasal cannula at home, CHF atherosclerotic heart disease of [place] coronary artery, GERD, chronic low back pain with narcotic dependence, pulmonary heart disease, polycythemia, PTSD, RJ, BPH, and anxiety. Patient has also been having bloody stools with diarrhea recently. Denies any lightheadedness. He denies any headache at this time. No neck pain. He does have some lower back discomfort. He has had some chronic back pain but this is worse than his typical. He denies any radiation down his legs. Patient does have some pain were he was told he had rib fractures. Patient has not had any nausea or vomiting. His states that his mentation, he has had some confusion. He has not been acutely worsening. Upon admission patient was mildly hypertensive with a blood pressure of 160/103, and tachypneic at a respiratory rate 34, 95% O2 saturation on 3 L. patient presented with leukocytosis a white count of 14.2 with a left shift, Neut # 11,400, sodium was mild decreased at 134, chloride 95, HC03 of 33 and a glucose of 206. Patient's liver enzymes were all moderately elevated with AST 131, ALT 75, alk-phos 157, total creatinine kinase of 2190. Patient's ABGs pCO2 65.8, PO2 77 HC03 37, total CO2 39, O2 saturation 94%, base excess 12, with an FiO2 of 30. Patient's troponin 1. 0.059, troponin 2. 0.048, troponin 3. 0.046 showing a slight trend down words, patient's EKG showed atrial flutter with a rate of [address] depression. CK-MB 3.09 likely a resolve of patient's fall and injury, BNP slightly elevated at 1450 (heart failure exac), procalcitonin 0.21. Stool cultures were negative. Chest CTA demonstrated small patchy right infiltrates and atelectasis post medial of the lower lobe. Some findings were concerning for pulmonary vascular hypertension. Also [id number] centrilobular emphysema. Patient's CT of abdomen and pelvis found hepatomegaly and hepatic steatosis, findings concerning for sigmoid colitis and sigmoid diverticulosis is seen without evidence of acute diverticulitis. CTs show possibly patchy infiltrate/pneumonia, also shows a colitis in the sigmoid region. Patient has been tachypneic but his pressures have improved he was initially mildly tachycardic. He has had 2 episodes of bloody stool in the ED. Hemoglobin was repeated approximately 6 hours later as well as troponin and these have not had significant changes. Patient is in atrial flutter but has been rate controlled. Blood gas appears to show chronic respiratory failure but without hypoxemia on his normal oxygen. Patient admitted for acute on chronic respiratory failure without hypoxemia exacerbation, Heart failure exacerbation with possible lower GI bleed and pneumonia. Patient History Medical History Anxiety Atherosclerotic heart disease of [place] coronary artery without angina pectoris Benign prostatic hyperplasia with lower urinary tract symptoms Cervicalgia Chronic asthma Chronic obstructive pulmonary disease with (acute) exacerbation Depression Essential (primary) hypertension Gastro-esophageal reflux disease without esophagitis Hypoxemia Impaired fasting glucose Lesion of ulnar nerve, 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 Neuropathy Obstructive sleep apnea Other allergic rhinitis Other specified pulmonary heart diseases Polycythemia PTSD (post-traumatic stress disorder) Surgical History (Updated 02/19/21 @ 05:09 by JAGRUTI Coto-CONNIE) History of heart artery stent History of hernia surgery History of mandibular surgery Family & Social History Family History (Updated 02/19/21 @ 05:01 by SHANI Coto) Mother Stroke Sister Stroke Father Suicide Safety & Behavioral: Feels Safe in Current No Environment Been Physically Hurt or No Threatened By a Person Tobacco & Substance use: Smoking Status Current every day smoker Substance Use Type does not use Meds Home Medications and Allergies Home Medications Medication Instructions Recorded Confirmed Type albuterol sulfate 3 ml INH BID #0 10/13/16 02/18/21 History alfuzosin [Uroxatral] 10 mg PO QDAY #0 10/13/16 02/18/21 History calcium carbonate 1 tab PO BID #0 10/13/16 01/22/21 History mirtazapine [Remeron] 30 mg PO HS #0 10/13/16 02/18/21 History testosterone cypionate 100 mg IM #0 10/13/16 01/22/21 History CPAP: CPAP/PAP Full Face Mask HS #0 01/08/17 History CLONAZEPAM See Rx Instructions PO DIRECTED 01/22/21 History GABAPENTIN 900 mg PO QID 01/22/21 02/18/21 History HYDROmorphone 1 mg/ml PO Q1H PRN 01/22/21 01/22/21 History HYDROmorphone See Rx Instructions PO Q3H PRN 01/22/21 01/22/21 History alfuzosin 10 mg tablet,extended 10 mg PO DAILY 01/22/21 01/22/21 History release 24 hr amlodipine 2.5 mg tablet 2.5 mg PO DAILY 01/22/21 01/22/21 History aspirin 81 mg tablet,delayed 81 mg PO DAILY 01/22/21 02/18/21 History release atorvastatin 40 mg tablet 40 mg PO BEDTIME 01/22/21 02/18/21 History fluoxetine See Rx Instructions PO DAILY 01/22/21 02/18/21 History guaifenesin 600 mg tablet, 600 mg PO BID 01/22/21 02/18/21 History extended release 12 hr multivitamin with minerals 1 tab PO DAILY 01/22/21 01/22/21 History naphazoline-pheniramine 0.10409 drp EYE-BOTH QID PRN ml 01/22/21 01/22/21 History %-0.315 % eye drops nitroglycerin 0.4 mg sublingual 0.4 mg SUBLINGUAL Q5-15M PRN 01/22/21 01/22/21 History tablet omeprazole 20 mg capsule,delayed 20 mg PO DAILY 01/22/21 01/22/21 History release salmeterol 50 mcg/dose blister 1 inh INHALATION Q12H 01/22/21 01/22/21 History powder for inhalation tiotropium bromide 18 mcg capsule 1 cap INHALATION DAILY 01/22/21 01/22/21 History with inhalation device Allergies Allergy/AdvReac Type Severity Reaction Status Date / Time zolpidem [From AMBIEN] Allergy Severe [place] Verified 02/18/21 18:39 FLASH BACKS oxycodone Allergy Unknown Verified 02/18/21 18:39 tapentadol [TAPENTADOL] AdvReac Intermediate DON'T USE Verified 02/18/21 18:39 PLASTIC TAPE - SKIN FIREY RED Review of Systems Review of Systems ROS: Yes All systems reviewed with the patient and are negative except as otherwise documented Exam Vital Signs (past 8 hours): - 02/18/21 12:20 02/18/21 15:38 02/18/21 16:59 Temperature 98.9 F Pulse Rate 102 H 89 94 H Respiratory Rate 19 34 H 21 Blood Pressure 154/97 H 138/80 Pulse Oximetry 96 95 94 02/18/21 17:00 02/18/21 17:01 02/18/21 17:30 Temperature Pulse Rate 94 H 95 H 88 Respiratory Rate 25 H 22 21 Blood Pressure 136/88 Pulse Oximetry 94 94 96 02/18/21 18:00 02/18/21 18:30 02/18/21 18:31 Temperature Pulse Rate 94 H 89 87 Respiratory Rate 20 23 17 Blood Pressure 147/77 H Pulse Oximetry 91 90 L 86 L 02/18/21 19:00 Temperature Pulse Rate 91 H Respiratory Rate 19 Blood Pressure 160/103 H Pulse Oximetry 97 Oxygen Delivery Method Nasal Cannula Oxygen Flow Rate 3 Narrative Exam Narrative: GEN: Patient appears in moderate distress. Patient is on nasal cannula in the room. HEAD: No evidence of trauma, no raccoon/Cruz sign. NECK: Nontender, painless range of motion, trachea midline Negative Nexus criteria, there is no mid line tenderness, distracting injury, altered mental status, neuro deficit, recent EtOH. EYES: PERRLA, EOMI ENT: External inspection normal, trachea is midline, Nares are clear, no septal hematoma, no dental or oral injury, airway is normal and with normal occlusion, No bony tenderness RESP: Chest is nontender and has symmetric movement, no ecchymosis, breath sounds are normal no crackles, wheezes or rales CVS: Heart sounds are normal, no murmur noted, No JVD. ABG/GI: Nontender, soft, normal bowel sounds, no distention, no organomegaly, pelvic rock is negative. Stool occult, NEURO: Oriented AOx3, neuro is grossly intact, sensation and motor is normal all 4 extremities moving, cranial nerves II through XII are intact, GCS is 15 PSYCH: Normal mood and affect SKIN: Intact, warm and dry, no crepitus and without decubitus BACK: No CVA tenderness, no vertebral tenderness, no step-off's, no crepitus EXT: Patient has ecchymosis on his left hip and flank. Hips are nontender, no pedal edema, normal color and temperature, patient has sensation all 4 extremities. He has a laceration on his left leg which appears healing. Well as a laceration on his foot Objective Labs Result Diagrams: 02/18/21 17:31 02/18/21 12:45 Labs: Laboratory Results - last 24 hr 02/18/21 02/18/21 02/18/21 12:45 12:45 12:45 WBC 14.2 H RBC 4.58 Hgb 14.5 Hct 44.5 MCV 97.2 MCH 31.6 MCHC 32.5 RDW 14.8 Plt Count 160 Neut % (Auto) 80.5 H Lymph % (Auto) 10.1 L [place] % (Auto) 8.6 Eos % (Auto) 0.3 L Baso % (Auto) 0.5 Neut # (Auto) 59384 H Lymph # (Auto) 1400 [place] # (Auto) 1200 H Eos # (Auto) 0 Baso # (Auto) 100 ABG pH ABG pCO2 ABG pO2 ABG HCO3 ABG Total CO2 ABG O2 Saturation ABG Base Excess FiO2 Sodium 134 L Potassium 4.0 Chloride 95 L Carbon Dioxide 33 H BUN 16 Creatinine 1.02 Estimated GFR > 60.0 BUN/Creatinine Ratio 15.7 Glucose 206 H Lactate 1.1 Calcium 9.0 Total Bilirubin 1.0 AST 131 H ALT 75 H Alkaline Phosphatase 157 H Total Creatine Kinase CK-MB (CK-2) CK-MB (CK-2) Rel Index Troponin I NT-Pro-B Natriuret Pep Total Protein 6.9 Albumin 3.7 Globulin 3.2 Albumin/Globulin Ratio 1.2 Lipase 21 L Procalcitonin 0.21 Stl C. cayetanensis PCR Stool Rotavirus (PCR) Stool Adenovirus (PCR) Stool Astrovirus (PCR) Stool Cryptosporidium PCR Stl E.coli Shiga Tox PCR St Sh/Enteroin Ecoli PCR Stool E coli O157 PCR Stl Enterotoxigenic E PCR Stool EPEC (PCR) Stl E. histolytica PCR Stool Giardia Lamblia PCR Stool Sapovirus (PCR) Stl P. shigelloides PCR St Y.enterocolitica PCR Stool Vibrio (PCR) Stl Vibrio cholerae PCR Stl Enteroaggr Ecoli PCR Stl Norovirus GI/GII PCR Campylobacter (PCR) C. difficile Tox (PCR) SARS-CoV-2 (PCR) Salmonella (PCR) Blood Type Antibody Screen 02/18/21 02/18/21 02/18/21 12:45 12:54 13:50 WBC RBC Hgb Hct MCV MCH MCHC RDW Plt Count Neut % (Auto) Lymph % (Auto) [place] % (Auto) Eos % (Auto) Baso % (Auto) Neut # (Auto) Lymph # (Auto) [place] # (Auto) Eos # (Auto) Baso # (Auto) ABG pH 7.36 ABG pCO2 65.8 H* ABG pO2 77 L ABG HCO3 37 H ABG Total CO2 39 H ABG O2 Saturation 94 L ABG Base Excess 12.0 H FiO2 30 Sodium Potassium Chloride Carbon Dioxide BUN Creatinine Estimated GFR BUN/Creatinine Ratio Glucose Lactate Calcium Total Bilirubin AST ALT Alkaline Phosphatase Total Creatine Kinase 2612 H CK-MB (CK-2) 4.15 H CK-MB (CK-2) Rel Index 0.2 L Troponin I 0.059 H NT-Pro-B Natriuret Pep 1450 H Total Protein Albumin Globulin Albumin/Globulin Ratio Lipase Procalcitonin Stl C. cayetanensis PCR Stool Rotavirus (PCR) Stool Adenovirus (PCR) Stool Astrovirus (PCR) Stool Cryptosporidium PCR Stl E.coli Shiga Tox PCR St Sh/Enteroin Ecoli PCR Stool E coli O157 PCR Stl Enterotoxigenic E PCR Stool EPEC (PCR) Stl E. histolytica PCR Stool Giardia Lamblia PCR Stool Sapovirus (PCR) Stl P. shigelloides PCR St Y.enterocolitica PCR Stool Vibrio (PCR) Stl Vibrio cholerae PCR Stl Enteroaggr Ecoli PCR Stl Norovirus GI/GII PCR Campylobacter (PCR) C. difficile Tox (PCR) SARS-CoV-2 (PCR) Negative Salmonella (PCR) Blood Type Antibody Screen 02/18/21 02/18/21 02/18/21 17:00 17:31 17:31 WBC RBC Hgb 14.0 Hct 43.2 MCV MCH MCHC RDW Plt Count Neut % (Auto) Lymph % (Auto) [place] % (Auto) Eos % (Auto) Baso % (Auto) Neut # (Auto) Lymph # (Auto) [place] # (Auto) Eos # (Auto) Baso # (Auto) ABG pH ABG pCO2 ABG pO2 ABG HCO3 ABG Total CO2 ABG O2 Saturation ABG Base Excess FiO2 Sodium Potassium Chloride Carbon Dioxide BUN Creatinine Estimated GFR BUN/Creatinine Ratio Glucose Lactate Calcium Total Bilirubin AST ALT Alkaline Phosphatase Total Creatine Kinase 2190 H CK-MB (CK-2) 3.09 H CK-MB (CK-2) Rel Index 0.1 L Troponin I 0.048 H NT-Pro-B Natriuret Pep Total Protein Albumin Globulin Albumin/Globulin Ratio Lipase Procalcitonin Stl C. cayetanensis PCR Not detected Stool Rotavirus (PCR) Not detected Stool Adenovirus (PCR) Not detected Stool Astrovirus (PCR) Not detected Stool Cryptosporidium PCR Not detected Stl E.coli Shiga Tox PCR Not detected St Sh/Enteroin Ecoli PCR Not detected Stool E coli O157 PCR Not Reportable Stl Enterotoxigenic E PCR Not detected Stool EPEC (PCR) Not detected Stl E. histolytica PCR Not detected Stool Giardia Lamblia PCR Not detected Stool Sapovirus (PCR) Not detected Stl P. shigelloides PCR Not detected St Y.enterocolitica PCR Not detected Stool Vibrio (PCR) Not detected Stl Vibrio cholerae PCR Not detected Stl Enteroaggr Ecoli PCR Not detected Stl Norovirus GI/GII PCR Not detected Campylobacter (PCR) Not detected C. difficile Tox (PCR) Not detected SARS-CoV-2 (PCR) Salmonella (PCR) Not detected Blood Type Antibody Screen 02/18/21 17:31 WBC RBC Hgb Hct MCV MCH MCHC RDW Plt Count Neut % (Auto) Lymph % (Auto) [place] % (Auto) Eos % (Auto) Baso % (Auto) Neut # (Auto) Lymph # (Auto) [place] # (Auto) Eos # (Auto) Baso # (Auto) ABG pH ABG pCO2 ABG pO2 ABG HCO3 ABG Total CO2 ABG O2 Saturation ABG Base Excess FiO2 Sodium Potassium Chloride Carbon Dioxide BUN Creatinine Estimated GFR BUN/Creatinine Ratio Glucose Lactate Calcium Total Bilirubin AST ALT Alkaline Phosphatase Total Creatine Kinase CK-MB (CK-2) CK-MB (CK-2) Rel Index Troponin I NT-Pro-B Natriuret Pep Total Protein Albumin Globulin Albumin/Globulin Ratio Lipase Procalcitonin Stl C. cayetanensis PCR Stool Rotavirus (PCR) Stool Adenovirus (PCR) Stool Astrovirus (PCR) Stool Cryptosporidium PCR Stl E.coli Shiga Tox PCR St Sh/Enteroin Ecoli PCR Stool E coli O157 PCR Stl Enterotoxigenic E PCR Stool EPEC (PCR) Stl E. histolytica PCR Stool Giardia Lamblia PCR Stool Sapovirus (PCR) Stl P. shigelloides PCR St Y.enterocolitica PCR Stool Vibrio (PCR) Stl Vibrio cholerae PCR Stl Enteroaggr Ecoli PCR Stl Norovirus GI/GII PCR Campylobacter (PCR) C. difficile Tox (PCR) SARS-CoV-2 (PCR) Salmonella (PCR) Blood Type O Positive Antibody Screen Negative Assessment & Plan Assessment & Plan narrative: 1. COPD exacerbation acute on chronic respiratory failure with hypercapnia without hypoxemia with tachypnea and hypertension in the setting of pulmonary vascular hypertension and heart failure/pulmonary heart disease atherosclerotic heart disease of the [place] carotid artery with out angina and possible pneumonia, acute on chronic, present on admission as evidenced by BP of 160/103, respiratory rate of 34, ABGs: PCO2 65.8, PO2 77, HC03 37, total CO2 39, O2 sat 94%, base excess 12. Patient does have a slightly elevated WBC at 14 point due suggestive of possible pneumonia Patient is on 3 L at home nasal cannula. Patient has had marked increase in baseline symptoms, outpatient treatment failure of an exacerbation, severe underlying COPD, change in mental status, significant comorbidities, poor home support, older age, change in mental status severe dyspnea leading to injury. -I suspect community-acquired pneumonia causing exacerbation patient's underlying COPD, heart failure and atrial flutter leading to dizziness and falls. -rule out PE, acute respiratory distress syndrome, pneumonia, pleural effusion, pneumothorax, decompensated heart failure/pulmonary edema, cardiac arrhythmia - vital signs Q 4 supplemental oxygen as needed to maintain an O2 saturation greater than 92%, orthostatics Q shift . Call for RR> 30, SaO2<92%, SBP<95, U/0 <100cc/Hr. - Lasix 20 mg ordered b.i.d.-assist for dehydration -Zosyn Q 8, and prednisone 40 mg q.day -respiratory consult patient nasal cannula -it should be noted neither the nurse or myself were able to verify patient's medications as neither the patient or his were able to provide medication verification. When we are able to verify patient's medications we will Continue patient's albuterol, amlodipine, atorvastatin, salmeterol, tiotropium bromide 2. Altered mental status/failure to thrive/fall down stairs, acute, present on admission -patient had received pain medication in the ED and so was unable to provide an accurate or coherent history or ROS. -PT, OT, speech, and social service evaluation as to patient's ability to safely go home. 3. Sigmoid colitis/sigmoid diverticulosis as evidenced by bloody stool, acute, present on admission -will continue to trend patient's hemoglobin and hematocrit and monitor for bleeding. Admit hemoglobin 14/hematocrit 43.2/MCV 97.2/platelets 160. My suspicion is quite low for a lower GI bleed. -Dr. Chiang consult tomorrow Rule out upper GI &/or Lower GI Bleeding, duodenitis, esophageal varices, portal hypertensive gastropathy, angiodysplasia, gastric reflux, gastritis, peptic ulcer disease, aerophagia, Leonila-Greene tear, and or gastric cancer. -closely monitor airway, clinical status, vital signs, cardiac rhythm, urinary output, and NG output if in place. -vital signs q.4 hours if stable, call for heart rate> 100, systolic BP< 100, activity-fall risk, strict I&O Q shift, No VTE/DVT prophylaxis due to bleeding risk. -NPO 4. BPH with lower obstruction, acute on chronic, present on admission -continue patient's alfuzosin -bladder scan as needed to verify patient is emptying and has no post residual, if continued retention of urine greater than 100 [address] Gtz catheterization. 5. GERD, acute on chronic, present on admission -continue patient's omeprazole 6. Obesity as evidence by BMI of 37.4, acute on chronic, present on admission -consideration be given to dietary counseling Code status: Full Surrogate decision maker: Arabella XIE PCR: Negative DVT/VTE: prophylaxis medication contraindicated, SCDs only Scores GCS Tigrett coma scale eye opening: Spontaneous [place] coma scale verbal response: Words Tigrett coma scale motor response: Localising Red coma scale total score: 12 Wells' Criteria for PE Clinical signs and symptoms of DVT: No PE is #1 Dx or equally likely: No Heart rate > 100: No Immobilization at least 3 days or surg in previous 4 weeks: No History of PE or DVT: No Hemoptysis: No Malignancy w/Treatment within 6 months or palliative: No Wells' PE Score total: 0
[2021-02-18 20:15] LABS: Phosphorous 2.2 mg/dL (2.3-3.7)
[2021-02-18] MEDS: HYDROMORPHONE 1 MG INJ IV (20:45)
[2021-02-18 20:46] LABS: Thyroid Stimulating Hormone 1.33 uIU/mL (0.47-4.68)
[2021-02-18 21:24] LABS: Troponin I 0.046 ng/mL (0.01-0.034)
[2021-02-19] VITALS (15 sets, daily range): BP systolic 131–183; BP diastolic 79–103; PULSE 78–119; RESP 16–26; TEMP 36.7–37.1; O2SAT 92–95
--- NOTE | 2021-02-19 00:09 | PC.NURSE ---
Admit/Evening Shift Note- Patient [id number] to room via stretcher, slider board used to transfer to bed. Patient alert and oriented and abloe to ,make needs known to staff. Admit questions done, unable to complete med rec (patient unable to provide info). Left arm in splint with jerod wrap falling off. Rewraped splint with jerod wrap and proped up on pillows. PRN IV dilaudid given as ordered per patient request for complaints of pain at 7-8/10. Patient tolerated with no s/s of ASE. Patient oriented to bed and bed controls, room, lights, phone, menu, bathroom, and call arciniega/tv remote. Safety measures in place. Patient agrees to call for assistance. Bed alarmn activated. Call arciniega and phone within reach. Will continue to monitor.
[2021-02-19] MEDS: PIPERACILLIN/TAZO 3.375 GM in SODIUM CHLORIDE 0.9% 100 ML 25 ML IV ×3 (02:37→18:27)
--- NOTE | 2021-02-19 04:00 | PC.NURSE ---
Patients call light was answered to find the patient intermediate to the bathroom. The patient refuses to use the bedside commode, urinal, or walker and does not call for help prior to getting out of bed. As the patient was getting up from the toilet he started to sway and the nurse ran behind him to prevent him from falling. Patient was reminded of call light and proper fall prevention.
[2021-02-19 06:13] LABS: Add Manual Diff / Slide Review NO; Basophils Absolute Auto 0 /uL (0-100); Basophils Percent Auto 0.2 % (0-2); Eosinophils Absolute Auto 0 /uL (0-450); Hematocrit 45.1 % (41-53); Hemoglobin 14.7 g/dL (13.5-17.5); Lymphocytes Absolute Auto 800 /uL (1100-4500); Lymphocytes Percent Auto 7.1 % (25-40); Mean Corpuscular HGB Conc 32.6 % (30-36); Mean Corpuscular Hemoglobin 31.5 PG (26-34); Mean Corpuscular Volume 96.8 fL (80-100); Monocytes Absolute Auto 300 /uL (0-900); Monocytes Percent Auto 2.9 % (3-14); Neutrophils Absolute Auto 9900 /uL (1500-7000); Neutrophils Percent Auto 89.8 % (50-75); Platelet Count 173 X10^3/uL (150-400); Red Blood Cell Count 4.66 X10^6/uL (4.5-5.9); Red Cell Distribution Width 14.7 % (11.6-14.8); White Blood Cell Count 11.1 X10^3/uL (4.5-11.0)
[2021-02-19 06:21] LABS: Alanine Aminotransferase 74 IU/L (<50); Albumin 3.6 g/dL (3.5-5.0); Albumin Globulin Ratio 1.1 (1.0-2.8); Alkaline Phosphatase 172 U/L (38-126); Aspartate Aminotransferase 110 IU/L (17-59); Bilirubin Total 1.1 mg/dL (0.2-1.3); Blood Urea Nitrogen 15 mg/dL (9-20); Calcium 8.4 mg/dL (8.4-10.2); Carbon Dioxide 36 mmol/L (22-32); Chloride 92 mmol/L (98-107); Estimated Glomerular Filt Rate > 60.0 mL/min (>60); Globulin 3.3 g/dL (1.7-4.1); Glucose 300 mg/dL (80-110); HEMOLYSIS 18 (0-50); Potassium 3.5 mmol/L (3.4-5.1); Sodium 133 mmol/L (137-145); Total Protein 6.9 g/dL (6.3-8.2)
[2021-02-19 06:29] LABS: NT-proBNP (BNP-Adult 18+) 1260 pg/mL (<125)
[2021-02-19] MEDS: HYDROMORPHONE 1 MG INJ IV ×3 (07:05→23:57)
[2021-02-19] MEDS: ALBUTEROL 2.5 MG/3 ML NEB (ADULT) INH ×2 (08:24→20:13)
[2021-02-19] MEDS: predniSONE 20 MG TABLET 40 MG PO (10:15)
[2021-02-19] MEDS: FUROSEMIDE 20 MG/2 ML VIAL IV ×2 (10:15→21:30)
[2021-02-19] MEDS: SODIUM CHLORIDE 0.9% FLUSH 10 ML IV ×2 (10:16→21:31)
[2021-02-19] MEDS: IPRATROPIUM 0.5 MG/2.5 ML NEB INH ×3 (11:15→20:12)
--- NOTE | 2021-02-19 13:00 | PT.IIE ---
Current Diagnoses Acute and chronic respiratory failure with hypercapnia (02/18/21) Surgical History (Last Updated 02/19/21 @ 05:09 by SHANI Coto) History of heart artery stent History of hernia surgery History of mandibular surgery Medical History (Last Reviewed 02/18/21 @ 19:58 by SHANI Coto) Anxiety Atherosclerotic heart disease of [place] coronary artery without angina pectoris Benign prostatic hyperplasia with lower urinary tract symptoms Cervicalgia Chronic asthma Chronic obstructive pulmonary disease with (acute) exacerbation Depression Essential (primary) hypertension Gastro-esophageal reflux disease without esophagitis Hypoxemia Impaired fasting glucose Lesion of ulnar nerve, 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 Neuropathy Obstructive sleep apnea Other allergic rhinitis Other specified pulmonary heart diseases Polycythemia PTSD (post-traumatic stress disorder) Physical Therapy Inpatient Evaluation/Re-Eval M1 PT/OT-IP Prior Functional Status Start: 02/19/21 14:40 Freq: NEEDED Status: Active Protocol: Document 02/19/21 13:00 DLM (Rec: 02/19/21 15:12 DLM [id number]) Medical Review Prior Functional Status Medical History Reviewed Yes Diet/Fluid Consistency Regular Communication WFL Mobility and Gait Independent without a device, uses cane as needed, distances limited by breathing and back pain. Noted pt took a wheelchair to his physician appointment in December. Hx left drop foot after LE injury in remote past Activities of Daily Living and IADL's He reports he takes a bath in the tub but has to have his help him get out. His helps him get dressed on the lower half. His is doing the cooking. He can heat up foot in the microwave. Prior Functional Level (Other details) uses home CPAP and oxygen. Physician note in December reports pt using 5 LPM oxygen with n.c . in his mouth since pt does not like to use a mask. Social History Household Members spouse Living Arrangements House Number of Floors (Floors) One Floor Number of Stairs To Enter/Railing? 2 with rail, house also has basement Home Environment High Toilet,Tub/Shower Home Equipment Front Wheel Walker,Straight Cane Employment Status Retired Additional Social History Comment pt reports he rents his house M2 PT-IP Current Condition Start: 02/19/21 14:40 Freq: NEEDED Status: Active Protocol: Document 02/19/21 13:00 DLM (Rec: 02/19/21 15:12 DL [id number]) Physical Therapy Current Condition Current Condition Evaluation Date 02/19/21 Treatment Diagnosis Fall, left UE Fx, rib injury, impaired mobility/gait Onset Date 02/18/21 Precautions Shoulder Precautions Sling Other Precautions NWB left UE due to fracture, precautions for left shoulder injury also, left rib pain, chronic low back pain Weight Bearing Status Weight Bearing Status Non-Weight Bearing M3 PT-IP Subjective Start: 02/19/21 14:40 Freq: NEEDED Status: Active Protocol: Document 02/19/21 13:00 DLM (Rec: 02/19/21 15:12 DL [id number]) Subjective Physical Therapy Visit Type Type Initial Evaluation Visit Start Time 12:15 Visit Stop Time 13:00 Total Visit Minutes 45 Number of COLLEGE ADVISOR Visits 0 Physical Therapy Visit Comments Patient Comments He reports feeling aweful. He is worrried about his who is undergoing chemo and radiation for her cancer. Patient Goals He wants to get better and go home. Therapy Pain Assessment Pain When Pain Assessed At Rest Pain Present Pain Present Pain Reported Location left arm Intensity 7 Scale Used Numeric (0 - 10) Description Aching Pain Behaviors Facial Grimacing,Guarding Pain Management Techniques Elevation,Re-positioning M4 PT-IP Mobility and Gait Start: 02/19/21 14:40 Freq: NEEDED Status: Active Protocol: Document 02/19/21 13:00 DLM (Rec: 02/19/21 15:12 DLM [id number]) PT-Bed Mobility Assessment Rolling Type of Rolling Roll to Right Level of Assist Moderate Assistance Supine to Sit Supine to Sit Minimal Assistance,Moderate Assistance Sit to Supine Sit to Supine Minimal Assistance Scooting Scooting to Edge of Bed Standby Assistance PT-Transfer Assessment Sit to and From Stand Sit to and from Stand Contact Guard Assistance Equipment Transfer Assistive Device Gait Belt Comments Mobility Comments Pt declined transfer this visit. He c/o dizziness when up and fatigue. Pt stood edge of bed and side-step back to head of bed before returning to supine. His left shoulder/ scapular area is very sore with bruising today. Gait Assessment Comments Gait Comments pt declined ambulation this visit PT-Balance Assessment Sitting Balance and Reactions Static Sitting Balance Ability Good Dynamic Sitting Balance Ability Good Standing Balance and Reactions Static Standing Balance Ability Good Dynamic Standing Balance Ability Fair M5 PT-IP Objective Assessments Start: 02/19/21 14:40 Freq: NEEDED Status: Active Protocol: Document 02/19/21 13:00 DLM (Rec: 02/19/21 15:12 DLM [id number]) Orientation Orientation/Cognition Level of Alertness Alert Orientation Name,Age,Birthday,Month,Date, Year,Day of Week,Place, Situation Language Function Ability Hard of Hearing Safety Awareness Decreased Safety Awareness Memory Description Short Term Impaired Comments decreased problem solving, disorganized thought process, impulsive, gets confused easily, difficult for him to give me details of home environment and baseline function Gross Range of Motion Upper Extremity ROM Assessment Left Impaired Impairments left shoulder very painful to move in [place], jerod wrap and splint left lower UE due to fx after a fall down the stairs, x-rays done at [facility] Lower Extremity ROM Assessment Within Functional Limits Impairments wounds left foot Strength Upper Extremity Strength Assessment Left Impaired Shoulder unable to actively move with c /o pain Elbow pain with attempts to flex elbow, needs assist Wrist splinted Hand splinted Lower Extremity Strength Assessment Left Impaired Ankle DF 1/5, PF 3+/5 Comments Strength Comments remote hx injury left distal LE Coordination Assessment Gross Coordination Gross Coordination WNL Sensation Assessment Sensation Gross Sensation Left LE Impaired Comments Sensation Comments scarring left distal LE Muscle Tone Muscle Tone WNL Yes M6 PT-IP Treatment Start: 02/19/21 14:40 Freq: NEEDED Status: Active Protocol: Document 02/19/21 13:00 DLM (Rec: 02/19/21 15:12 DLM [id number]) Physical Therapy Treatment Education Education Provided Precautions,Weight Bearing Status,Safety Other Treatments Other Treatment Performed pt not safe to use FWW (even with platform) at this time due to left shoulder and forearm injuries M7 PT-IP Assessment and Plan Start: 02/19/21 14:40 Freq: NEEDED Status: Active Protocol: Document 02/19/21 13:00 DLM (Rec: 02/19/21 15:12 DLM [id number]) PT Summary Assessment and Plan Potential Rehabilitation Potential Good Status of Condition at Evaluation Evolving Summary Impairments Pain,ROM,Strength,Balance, Cognition,Bed Mobility, Transfers,Gait,Activity Tolerance Assessment Summary Cody is alert and resting in bed. He is aware of his recent fall down the stairs. He c/o left shoulder, rib and arm pain at this time. Noted chest CT shows no fractured ribs. Pt reports his arm is fractured and has a splint in place. On clinical exam he has no functional use of his left shoulder with significant pain and bruising. He c/o not feeling well over-all today. He is very disorganized in his thought process and shows decreased memory. He tolerated sitting up edge of bed and standing at bedside. He c/o dizziness when up. He was able to take side-steps back to head of bed before returning to bed. His activity tolerance is low today over-all. He does not appear safe to return home at this time. His is under-going cancer treatments and is not home all the time. He could benefit from SNF rehab before returning home. Goals Bed Mobility Goal Standby Assistance Transfer Goal Minimal Assistance Gait Goal Minimal Assistance,Cane Gait Distance 50 feet Other Goals up and down 2 steps with rail and CG/min assist Days to Meet Goals 5 Frequency of Treatment Frequency Of Treatment Twice a Day Treatment Plan Physical Therapy Treatment Plan Bed Mobility Training,Transfer Training,Gait Training, Therapeutic Exercise,Balance Retraining,Discharge Planning, Hot or Cold Pack Recommendations To Nursing Amount of Assist Needed 1 Person Assist,2 Person Assist Discharge Recommendations PT Discharge Recommendations SNF Rehab Transportation Needs at Discharge Private Vehicle,Wheelchair/ Cabulance
[2021-02-19 15:59] LABS: Hemoglobin A1C% w Est Avg Glu 6.6 % (4.0-6.0)
--- NOTE | 2021-02-19 15:59 | CM.DANOTE ---
Discharge Planning/Care Management DCP: assessment: case received, EMR reviewed and discussed in Team Rounds. Met now with pt and introduced self and role. Pt was found lying in bed, wanting to eat (NPO status) and blaming the physician for :withholding food from me. RN Mirtha attempting to calm him. Pt is a 75 year old male who admitted last evening to care of hospitalist team. Sounds like surgery team may be consulting. Payer: Medicare and [employer] Admission status: INPT: confirmed by UR MARGARET Saini. Pt confirmed his Arabella is staying at a local motel in [place] (they reside on [address]). He notes she is ill and in treatment for cancer. He does not remember the name of the motel. I can hardly think today. Pt has a casted L arm/placed at [facility] and he uses a sling also. He states he is very upset re the very uncomfortable casting. Pt uses o2 at baseline: vendor: [employer]. PT/OT are ordered. Assured pt the DCP team would be following to assist with dc issues and options as these became clearer. CM Discharge Assessment Start: 02/19/21 15:57 Freq: Status: Active Protocol: Document 02/19/21 15:57 ITV (Rec: 02/19/21 15:59 ITV [id number]) Discharge Planning Assessment Advance Directives? No Advance Directives on File No History Provided By Patient,Medical Record Has Patient been admitted in last 30 No days? Prior Living Arrangements House Household Members spouse Comment they reside on [facility] Oxygen Therapy Review Status In Process
--- NOTE | 2021-02-19 17:15 | OT.IP.EVAL ---
Current Diagnoses Acute and chronic respiratory failure with hypercapnia (02/18/21) Past Medical History (Last Reviewed 02/18/21 @ 19:58 by SHANI Coto) Anxiety Atherosclerotic heart disease of [place] coronary artery without angina pectoris Benign prostatic hyperplasia with lower urinary tract symptoms Cervicalgia Chronic asthma Chronic obstructive pulmonary disease with (acute) exacerbation Depression Essential (primary) hypertension Gastro-esophageal reflux disease without esophagitis Hypoxemia Impaired fasting glucose Lesion of ulnar nerve, 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 Neuropathy Obstructive sleep apnea Other allergic rhinitis Other specified pulmonary heart diseases Polycythemia PTSD (post-traumatic stress disorder) Surgical History (Last Updated 02/19/21 @ 05:09 by SHANI Coto) History of heart artery stent History of hernia surgery History of mandibular surgery Occupational Therapy Inpatient Evaluation/Re-Eval M1 PT/OT-IP Prior Functional Status Start: 02/19/21 14:40 Freq: NEEDED Status: Active Protocol: Document 02/19/21 16:21 [facility] (Rec: 02/19/21 18:01 [facility] [id number]) Medical Review Prior Functional Status Medical History Reviewed Yes Diet/Fluid Consistency Regular Communication WFL Mobility and Gait Independent without a device, uses cane as needed, distances limited by breathing and back pain. Noted pt took a wheelchair to his physician appointment in December. Hx left drop foot after LE injury in remote past Activities of Daily Living and IADL's He reports he takes a bath in the tub but has to have his help him get out. His helps him get dressed on the lower half. His is doing the cooking. He can heat up foot in the microwave. Pt states takes care fo his own medications. Prior Functional Level (Other details) uses home CPAP and oxygen. Physician note in December reports pt using 5 LPM oxygen with n.c . in his mouth since pt does not like to use a mask. Social History Household Members spouse Living Arrangements House Number of Floors (Floors) One Floor Number of Stairs To Enter/Railing? 2 step no rail to the deck, house also has basement Home Environment High Toilet,Tub/Shower Home Equipment Front Wheel Walker,Straight Cane Additional Social History Comment pt reports he rents his house. Pt states that he crawls into the tub from the floor. M2 OT-IP Current Condition Start: 02/19/21 17:26 Freq: Status: Active Protocol: Document 02/19/21 16:21 [facility] (Rec: 02/19/21 18:01 [facility] [id number]) Occupational Therapy Current Condition Current Condition Evaluation Date 02/19/21 Treatment Diagnosis Fall, LUE fx, COPD exacerbation, decreased mobility. Diagnosis Onset Date 02/18/21 Post Operative Precautions Other Precautions NWB for LUE, sling in the room . Pt not wanting to wear the sling at this time. Weight Bearing Status Weight Bearing Status Non-Weight Bearing Allowed Weight Bearing Amount (enter % NWB LUE. or #) (%) M3 OT- IP Subjective and Pain Start: 02/19/21 17:26 Freq: Status: Active Protocol: Document 02/19/21 16:21 [facility] (Rec: 02/19/21 18:01 [facility] [id number]) OT- Subjective Occupational Therapy Visit Type Type Initial Evaluation Visit Start Time 16:21 Visit Stop Time 17:15 Total Visit Minutes 54 Occupational Therapy Visit Comments Patient Comments Pt agreed to talk to OT and then needing to use the BSC. Pt's present in the room. Patient/Caregiver Goals TO go home. OT Pain Assessment Pain When Pain Assessed During Mobility Pain Present Pain Present Pain Reported Location left arm Intensity 9 M4 OT- IP ADL's Start: 02/19/21 17:26 Freq: Status: Active Protocol: Document 02/19/21 16:21 [facility] (Rec: 02/19/21 18:01 [facility] [id number]) OT [id number] General Evaluation Self-Feeding Ability Moderate Assistance Areas Needing Assistance Cutting Food,Opening Containers Comments OT Self-Feeding Comments Pt's assist pt to eat a popsicle at this time. OT ADL-Grooming General Evaluation Grooming Ability Standby Assistance Comments OT Grooming Comments Set-up assist while seated. OT ADL-Oral Care Comments Oral Care Comments Not performed. OT ADL-Dressing General Eval Lower Body Dressing Ability Maximum Assistance Areas Needing Assistance Socks Comments OT Dressing Comments Pt will require MAX A for all LB dressing needs and also extensive assist for sling management needs. OT ADL-Toileting General Evaluation Toileting Ability Maximum Assistance Areas Needing Assistance Perform Perineal Hygiene Devices Toileting Assistive Devices Commode OT ADL-Bathing Comments OT Bathing Comments Not at this time. Able to suggest that it may be safer for pt to use tub bench at home. However pt insistent on taking baths but later states may just sponge off at home. M5 OT- IP IADL's Start: 02/19/21 17:26 Freq: Status: Active Protocol: Document 02/19/21 16:21 [facility] (Rec: 02/19/21 18:01 [facility] [id number]) OT-Instrumental Activities of Daily Living Home Safety Awareness Awareness of Need for Assistance at Home Decreased Awareness Ability to Problem Solve Emergency Unable to Problem Solve Situations Medication Management Medication Management Comments Pt states takes his own medications at home, however do to his poor safety awareness, would be best for his to assist him for all his needs. Money Management Money Management Comments Pt states takes his own medications at home, however do to his poor safety awareness, would be best for his to assist him for all his needs. Meal Preparation Meal Preparation Comments Pt states takes his own medications at home, however do to his poor safety awareness, would be best for his to assist him for all his needs. Fur Ironer Fur Ironer Comments Pt states takes his own medications at home, however do to his poor safety awareness, woudl be best for his to assist him for all his needs. M6 OT- IP Functional Cognition Start: 02/19/21 17:26 Freq: Status: Active Protocol: Document 02/19/21 16:21 [facility] (Rec: 02/19/21 18:01 [facility] [id number]) Cognitive Factors Limiting Selfcare Function Cognitive Ability Level of Alertness Alert,Confusional State Patient Orientation Name Attention Span Ability Capable of Focused Attention, Unable to Sustain Attention Ability to Follow Commands Able to Follow One Step Commands with Increased Time, Able to Follow One Step Commands with Repetition Memory Description Short Term Impaired,Longterm Impaired Safety Awareness Decreased Ability to Apply Precautions,Underestimates Need for Assistance Problem Solving Ability Unable to Identify Errors, Needs Assist to Identify Solutions Cognitive Comments Cognitive Assessment Comments Pt impulsive, decreased safety awareness, judgement and insight to his needs. Not able to ask if pt is at his base line function. Pt's in the room and catering to his needs. Pt not able to recall his precautions and that he is not suppose to put weight on his LUE. OT- Vision and Hearing OT- Vision Assessment Vision Assessment Comments Pt is hard of hearing. M7 OT- IP Mobility and Balance Start: 02/19/21 17:26 Freq: Status: Active Protocol: Document 02/19/21 16:21 [facility] (Rec: 02/19/21 18:01 [facility] [id number]) OT- Bed Mobility Assessment Rolling Type of Rolling Roll to Right Level of Assistance Moderate Assistance,1 Person Assistance Supine to Sit Supine to Sit Assist Moderate Assistance,1 Person Assistance OT-Transfer Assessment Sit to and From Stand Sit to and from Stand Contact Guard Assistance Transfers Transfer Ability Minimal Assistance,Moderate Assistance Technique Transfer Destination Bed,Bedside Commode Transfer Technique Stand Step Pivot Devices Transfer Assistive Devices Gait Belt Comments Mobility Comments CGA to stand and HILDA for balance and safety to make sure that pt not putting weight on his LUE. Pt not wanting to try the cane. Nursing aid called in to assist with hygiene needs. Pt getting up and trying to move and needing cues to stop as needing to be cleaned first and then proceeded to try to crawl into be, pt needing cues not to put weight on his LUE and able to turn around and sit back on the bed. OT- Gait Assessment Comments Gait Ability Comments Transfer only at this time. OT- Balance Assessment Sitting Balance and Reactions Static Sitting Balance Ability Normal Dynamic Sitting Balance Ability Good Standing Balance and Reactions Static Standing Balance Ability Fair M8 OT- IP Objective Assessments Start: 02/19/21 17:26 Freq: Status: Active Protocol: Document 02/19/21 16:21 [facility] (Rec: 02/19/21 18:01 [facility] [id number]) OT Gross Range of Motion Upper Extremity Range of Motion Assessment Left Impaired OT Strength Upper Extremity Strength Assessment Left Impaired OT-Muscle Tone Assessment Muscle Tone WNL Yes M9 OT- IP Assessment and Plan Start: 02/19/21 17:26 Freq: Status: Active Protocol: Document 02/19/21 16:21 [facility] (Rec: 02/19/21 18:01 [facility] [id number]) OT Summary Assessment and Plan Potential Rehabilitation Potential Fair Analytic Complexity at Evaluation Moderate Summary OT Impairments Pain,Strength,Balance, Functional Cognition, Functional Mobility,Self- Feeding,Grooming,Dressing, Toileting,Bathing,Toilet Transfers,Shower Transfers, Activity Tolerance Progress Towards Goals Slow Progress due to Pain,Slow Progress due to Medical Issues,Slow Progress due to Activity Tolerance,Slow Progress due to Cognition Assessment Summary Pt MOD complexity and main barriers are decreased insight and judgment to his needs, needing vc to slow down, has 2 steps at home and needing extensive assist for all ADl and mobility needs at this time. Pt 's is able to help pt however going through chemo herself. Therefore at this time would be best for pt to go to skilled rehab prior to going home versus home with assist pending pt's progress and the ability of his to assist. Goals Grooming Goal Standby Assistance Dressing Goal Moderate Assistance Toileting Goal Moderate Assistance Bathing Goal Moderate Assistance Toilet Transfer Goal Standby Assistance Shower Transfer Goal Contact Guard Assistance Patient/Caregiver Education Goal Caregiver Independent Assisting Patient Days to Meet Goals 10 Frequency of Treatment Frequency Of Treatment Once a Day Treatment Plan OT Treatment Plan ADL Training,Functional Cognition Training,Functional Mobility,Patient/Family Education,Discharge Planning Other Treatment Recommendations and Next Stand at sink for grooming Treatment Focus needs. Discharge Recommendations OT Discharge Recommendations SNF Rehab Other Discharge Recommendations Pending progress and ability of his to assist, possibly home and home health. Home Equipment Needs Tub bench Transportation Needs at Discharge Private Vehicle
--- NOTE | 2021-02-19 17:31 | PM.PN.1 ---
Subjective Subjective Date Patient Seen: 02/19/21 Interval history: Patient is a 75-year-old male with a history of COPD who was admitted to the hospital for increasing shortness of breath, acute colitis, and congestive heart failure. The patient was quite angry today as he has been NPO and unable to eat for 5 days. He is adamant that he wants something orally to take. He continues to be short of breath and is still on 3 L of oxygen which is his baseline. He does report some left-sided abdominal pain. In addition he has had intermittent bloody stools throughout the day. Exam Vital Signs (past 8 hours): - 02/19/21 11:15 02/19/21 11:24 02/19/21 12:00 Temperature 98.1 F Pulse Rate 97 H Pulse Rate [Orthostatic Lying] Pulse Rate [Orthostatic Sitting] Pulse Rate [Orthostatic Standing] Respiratory Rate 16 Blood Pressure 143/93 H Blood Pressure [Orthostatic Lying] Blood Pressure [Orthostatic Sitting] Blood Pressure [Orthostatic Standing] Pulse Oximetry 93 94 94 02/19/21 12:03 02/19/21 14:36 02/19/21 15:25 Temperature 98.2 F Pulse Rate 78 113 H Pulse Rate [Orthostatic Lying] 95 H Pulse Rate [Orthostatic Sitting] 101 H Pulse Rate [Orthostatic Standing] 101 H Respiratory Rate 22 20 Blood Pressure 164/85 H Blood Pressure [Orthostatic Lying] 147/79 H Blood Pressure [Orthostatic Sitting] 161/99 H Blood Pressure [Orthostatic Standing] 160/95 H Pulse Oximetry 93 95 02/19/21 16:00 Temperature Pulse Rate Pulse Rate [Orthostatic Lying] Pulse Rate [Orthostatic Sitting] Pulse Rate [Orthostatic Standing] Respiratory Rate Blood Pressure Blood Pressure [Orthostatic Lying] Blood Pressure [Orthostatic Sitting] Blood Pressure [Orthostatic Standing] Pulse Oximetry 95 Oxygen Delivery Method Nasal Cannula Oxygen Flow Rate 5 Narrative Exam Narrative: Pleasant gentleman lying in bed in no obvious distress Lungs: Decreased breath sounds Cardiac exam: Regular rate and rhythm normal S1-S2 Abdomen: Soft, mild tenderness in the left side of the abdomen, no rebound tenderness, no board-like rigidity, no palpable mass Extremities: No edema Objective Labs Result Diagrams: 02/19/21 05:40 02/19/21 05:40 Labs: Laboratory Results - last 24 hr 02/18/21 02/18/21 02/18/21 12:45 17:00 17:31 WBC RBC Hgb Hct MCV MCH MCHC RDW Plt Count Neut % (Auto) Lymph % (Auto) Hitchcock % (Auto) Eos % (Auto) Baso % (Auto) Neut # (Auto) Lymph # (Auto) Hitchcock # (Auto) Eos # (Auto) Baso # (Auto) Sodium Potassium Chloride Carbon Dioxide BUN Creatinine Estimated GFR BUN/Creatinine Ratio Glucose Hemoglobin A1c Calcium Phosphorus Magnesium Total Bilirubin AST ALT Alkaline Phosphatase Total Creatine Kinase 2190 H CK-MB (CK-2) 4.15 H 3.09 H CK-MB (CK-2) Rel Index 0.2 L 0.1 L Troponin I 0.048 H NT-Pro-B Natriuret Pep Total Protein Albumin Globulin Albumin/Globulin Ratio TSH Stl C. cayetanensis PCR Not detected Stool Rotavirus (PCR) Not detected Stool Adenovirus (PCR) Not detected Stool Astrovirus (PCR) Not detected Stool Cryptosporidium PCR Not detected Stl E.coli Shiga Tox PCR Not detected St Sh/Enteroin Ecoli PCR Not detected Stool E coli O157 PCR Not Reportable Stl Enterotoxigenic E PCR Not detected Stool EPEC (PCR) Not detected Stl E. histolytica PCR Not detected Stool Giardia Lamblia PCR Not detected Stool Sapovirus (PCR) Not detected Stl P. shigelloides PCR Not detected St Y.enterocolitica PCR Not detected Stool Vibrio (PCR) Not detected Stl Vibrio cholerae PCR Not detected Stl Enteroaggr Ecoli PCR Not detected Stl Norovirus GI/GII PCR Not detected Campylobacter (PCR) Not detected C. difficile Tox (PCR) Not detected Salmonella (PCR) Not detected Blood Type Antibody Screen 02/18/21 02/18/21 02/18/21 17:31 17:31 17:31 WBC RBC Hgb 14.0 Hct 43.2 MCV MCH MCHC RDW Plt Count Neut % (Auto) Lymph % (Auto) Hitchcock % (Auto) Eos % (Auto) Baso % (Auto) Neut # (Auto) Lymph # (Auto) Hitchcock # (Auto) Eos # (Auto) Baso # (Auto) Sodium Potassium Chloride Carbon Dioxide BUN Creatinine Estimated GFR BUN/Creatinine Ratio Glucose Hemoglobin A1c Calcium Phosphorus 2.2 L Magnesium 2.0 Total Bilirubin AST ALT Alkaline Phosphatase Total Creatine Kinase CK-MB (CK-2) CK-MB (CK-2) Rel Index Troponin I NT-Pro-B Natriuret Pep Total Protein Albumin Globulin Albumin/Globulin Ratio TSH Stl C. cayetanensis PCR Stool Rotavirus (PCR) Stool Adenovirus (PCR) Stool Astrovirus (PCR) Stool Cryptosporidium PCR Stl E.coli Shiga Tox PCR St Sh/Enteroin Ecoli PCR Stool E coli O157 PCR Stl Enterotoxigenic E PCR Stool EPEC (PCR) Stl E. histolytica PCR Stool Giardia Lamblia PCR Stool Sapovirus (PCR) Stl P. shigelloides PCR St Y.enterocolitica PCR Stool Vibrio (PCR) Stl Vibrio cholerae PCR Stl Enteroaggr Ecoli PCR Stl Norovirus GI/GII PCR Campylobacter (PCR) C. difficile Tox (PCR) Salmonella (PCR) Blood Type O Positive Antibody Screen Negative 02/18/21 02/18/21 02/19/21 17:31 20:55 05:40 WBC 11.1 H RBC 4.66 Hgb 14.7 Hct 45.1 MCV 96.8 MCH 31.5 MCHC 32.6 RDW 14.7 Plt Count 173 Neut % (Auto) 89.8 H Lymph % (Auto) 7.1 L Hitchcock % (Auto) 2.9 L Eos % (Auto) 0.0 L Baso % (Auto) 0.2 Neut # (Auto) 9900 H Lymph # (Auto) 800 L Hitchcock # (Auto) 300 Eos # (Auto) 0 Baso # (Auto) 0 Sodium Potassium Chloride Carbon Dioxide BUN Creatinine Estimated GFR BUN/Creatinine Ratio Glucose Hemoglobin A1c Calcium Phosphorus Magnesium Total Bilirubin AST ALT Alkaline Phosphatase Total Creatine Kinase CK-MB (CK-2) CK-MB (CK-2) Rel Index Troponin I 0.046 H NT-Pro-B Natriuret Pep Total Protein Albumin Globulin Albumin/Globulin Ratio TSH 1.33 Stl C. cayetanensis PCR Stool Rotavirus (PCR) Stool Adenovirus (PCR) Stool Astrovirus (PCR) Stool Cryptosporidium PCR Stl E.coli Shiga Tox PCR St Sh/Enteroin Ecoli PCR Stool E coli O157 PCR Stl Enterotoxigenic E PCR Stool EPEC (PCR) Stl E. histolytica PCR Stool Giardia Lamblia PCR Stool Sapovirus (PCR) Stl P. shigelloides PCR St Y.enterocolitica PCR Stool Vibrio (PCR) Stl Vibrio cholerae PCR Stl Enteroaggr Ecoli PCR Stl Norovirus GI/GII PCR Campylobacter (PCR) C. difficile Tox (PCR) Salmonella (PCR) Blood Type Antibody Screen 02/19/21 02/19/21 05:40 05:40 WBC RBC Hgb Hct MCV MCH MCHC RDW Plt Count Neut % (Auto) Lymph % (Auto) Hitchcock % (Auto) Eos % (Auto) Baso % (Auto) Neut # (Auto) Lymph # (Auto) Hitchcock # (Auto) Eos # (Auto) Baso # (Auto) Sodium 133 L Potassium 3.5 Chloride 92 L Carbon Dioxide 36 H BUN 15 Creatinine 1.00 Estimated GFR > 60.0 BUN/Creatinine Ratio 15.0 Glucose 300 H Hemoglobin A1c 6.6 H Calcium 8.4 Phosphorus Magnesium Total Bilirubin 1.1 AST 110 H ALT 74 H Alkaline Phosphatase 172 H Total Creatine Kinase CK-MB (CK-2) CK-MB (CK-2) Rel Index Troponin I NT-Pro-B Natriuret Pep 1260 H Total Protein 6.9 Albumin 3.6 Globulin 3.3 Albumin/Globulin Ratio 1.1 TSH Stl C. cayetanensis PCR Stool Rotavirus (PCR) Stool Adenovirus (PCR) Stool Astrovirus (PCR) Stool Cryptosporidium PCR Stl E.coli Shiga Tox PCR St Sh/Enteroin Ecoli PCR Stool E coli O157 PCR Stl Enterotoxigenic E PCR Stool EPEC (PCR) Stl E. histolytica PCR Stool Giardia Lamblia PCR Stool Sapovirus (PCR) Stl P. shigelloides PCR St Y.enterocolitica PCR Stool Vibrio (PCR) Stl Vibrio cholerae PCR Stl Enteroaggr Ecoli PCR Stl Norovirus GI/GII PCR Campylobacter (PCR) C. difficile Tox (PCR) Salmonella (PCR) Blood Type Antibody Screen [facility] Medical History Anxiety Atherosclerotic heart disease of [place] coronary artery without angina pectoris Benign prostatic hyperplasia with lower urinary tract symptoms Cervicalgia Chronic asthma Chronic obstructive pulmonary disease with (acute) exacerbation Depression Essential (primary) hypertension Gastro-esophageal reflux disease without esophagitis Hypoxemia Impaired fasting glucose Lesion of ulnar nerve, 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 Neuropathy Obstructive sleep apnea Other allergic rhinitis Other specified pulmonary heart diseases Polycythemia PTSD (post-traumatic stress disorder) Surgical History (Updated 02/19/21 @ 05:09 by JAGRUTI CotoCONNIE) History of heart artery stent History of hernia surgery History of mandibular surgery Family History (Updated 02/19/21 @ 05:01 by SHANI Coto) Mother Stroke Sister Stroke Father Suicide Social History household members: spouse Smoking Status: Former smoker alcohol intake: current Assessment & Plan Assessment & Plan narrative: Chronic Respiratory Failure -COPD exacerbation acute on chronic respiratory failure with hypercapnia without hypoxemia with tachypnea and hypertension in the setting of pulmonary vascular hypertension and heart failure/pulmonary heart disease atherosclerotic heart disease of the [place] carotid artery with out angina and possible pneumonia, acute on chronic, present on admission as evidenced by BP of 160/103, respiratory rate of 34, ABGs: PCO2 65.8, PO2 77, HC03 37, total CO2 39, O2 sat 94%, base excess 12. Patient does have a slightly elevated WBC at 14 point due suggestive of possible pneumonia Patient is on 3 L at home nasal cannula. Patient has had marked increase in baseline symptoms, outpatient treatment failure of an exacerbation, severe underlying COPD, change in mental status, significant comorbidities, poor home support, older age, change in mental status severe dyspnea leading to injury. -I suspect community-acquired pneumonia causing exacerbation patient's underlying COPD, heart failure and atrial flutter leading to dizziness and falls. -rule out PE, acute respiratory distress syndrome, pneumonia, pleural effusion, pneumothorax, decompensated heart failure/pulmonary edema, cardiac arrhythmia - vital signs Q 4 supplemental oxygen as needed to maintain an O2 saturation greater than 92%, orthostatics Q shift . Call for RR> 30, SaO2<92%, SBP<95, U/0 <100cc/Hr. - Lasix 20 mg ordered b.i.d.-assist for dehydration -Zosyn Q 8, and prednisone 40 mg q.day -respiratory consult patient nasal cannula -it should be noted neither the nurse or myself were able to verify patient's medications as neither the patient or his were able to provide medication verification. When we are able to verify patient's medications we will Continue patient's albuterol, amlodipine, atorvastatin, salmeterol, tiotropium bromide 2. Altered mental status/failure to thrive/fall down stairs, acute, present on admission -patient had received pain medication in the ED and so was unable to provide an accurate or coherent history or ROS. -PT, OT, speech, and social service evaluation as to patient's ability to safely go home. 3. Sigmoid colitis/sigmoid diverticulosis as evidenced by bloody stool, acute, present on admission -will continue to trend patient's hemoglobin and hematocrit and monitor for bleeding. Admit hemoglobin 14/hematocrit 43.2/MCV 97.2/platelets 160. My suspicion is quite low for a lower GI bleed. -Dr. Chiang consult tomorrow Rule out upper GI &/or Lower GI Bleeding, duodenitis, esophageal varices, portal hypertensive gastropathy, angiodysplasia, gastric reflux, gastritis, peptic ulcer disease, aerophagia, Leonila-Greene tear, and or gastric cancer. -closely monitor airway, clinical status, vital signs, cardiac rhythm, urinary output, and NG output if in place. -vital signs q.4 hours if stable, call for heart rate> 100, systolic BP< 100, activity-fall risk, strict I&O Q shift, No VTE/DVT prophylaxis due to bleeding risk. -Advance diet as tolerated, continue IV antibiotics 4. BPH with lower obstruction, acute on chronic, present on admission -continue patient's alfuzosin -bladder scan as needed to verify patient is emptying and has no post residual, if continued retention of urine greater than 100 [address] Gtz catheterization. 5. GERD, acute on chronic, present on admission -continue patient's omeprazole 6. Obesity as evidence by BMI of 37.4, acute on chronic, present on admission -consideration be given to dietary counseling Code status: Full Surrogate decision maker: Arabella XIE PCR: Negative DVT/VTE: prophylaxis medication contraindicated, SCDs only Quality VTE Deep Vein Thrombosis/Pulmonary Embolism Present on Admission: No
[2021-02-19] MEDS: TRAZODONE 50 MG TABLET PO (21:30)
--- NOTE | 2021-02-19 22:33 | PC.NURSE ---
[id number]---pt dozing @ intervals. Using BSC as needed. has had a couple bloody stools HL x 2 intact. Tele a-fib /BBB per ICU staff. Tolerating low residue diet. Call light w/in reach, bed alarm on for pt safety. Continue w/plan of care.
[2021-02-19] MEDS: ACETAMINOPHEN 325 MG TABLET 650 MG PO (23:57)
[2021-02-20] VITALS (7 sets, daily range): BP systolic 163–180; BP diastolic 93–109; PULSE 85–110; RESP 16–26; TEMP 36.4–36.5; O2SAT 92–97
[2021-02-20] MEDS: METOPROLOL ER 25 MG TABLET PO (00:37)
[2021-02-20] MEDS: PIPERACILLIN/TAZO 3.375 GM in SODIUM CHLORIDE 0.9% 100 ML 25 ML IV ×2 (01:23→10:58)
--- NOTE | 2021-02-20 02:52 | PC.NURSE ---
Upon shift change, patient's blood pressure was elevated 180/109, Pulse was 110. Cary CAMPOS notified of condition. Orders were put in for 25mg oral metoprolol. Vital signs re-checked per protocol and BP 163/96 P92, vital signs reported to Cary CAMPOS who said she was ok with that vital sign reading. Home medications were reconciled to be started in AM.
[2021-02-20] MEDS: HYDROMORPHONE 1 MG INJ IV ×3 (04:13→13:44)
[2021-02-20] MEDS: SODIUM CHLORIDE 0.9% FLUSH 10 ML IV ×2 (04:15→08:27)
[2021-02-20] MEDS: ASPIRIN EC 81 MG TABLET PO (08:26)
[2021-02-20] MEDS: GABAPENTIN 300 MG CAPSULE 900 MG PO ×2 (08:26→13:44)
[2021-02-20] MEDS: FUROSEMIDE 20 MG/2 ML VIAL IV (08:26)
[2021-02-20] MEDS: FLUoxetine 20 MG CAPSULE 80 MG PO (08:48)
[2021-02-20] MEDS: CYCLOBENZAPRINE 10 MG TABLET PO (08:49)
[2021-02-20] MEDS: predniSONE 20 MG TABLET 40 MG PO (08:49)
[2021-02-20] MEDS: AMLODIPINE 5 MG TABLET 2.5 MG PO (08:50)
--- NOTE | 2021-02-20 09:38 | PT-IP ANOTE ---
Pt L sidlying in bed when arrived. He seems confused in length of stay thus far, states has been here for 5 days without food and staff not properly caring or working with him. Pt refused to work with therapy upon arrival stating I am not doing anything until see my physician, I have not a Dr since I got here and want to go home to help my daughter and with medical needs they have. When INFORMATION TECHNOLOGY AUDIT MANAGER left room, discussed pt's refusal and feedback with his nurse Rosa and physician Dr Chase per pt request. Pt was not seen for am tx, will attempt in afternoon and continue to assess progress.
--- NOTE | 2021-02-20 10:13 | DIET.PN ---
Dietary Progress Note: Pt does not require RD consult per hospitalist. Completing order.
--- NOTE | 2021-02-20 11:50 | PM.DS.1 ---
History of Present Illness History of Present Illness Date Patient Seen: 02/20/21 Chief complaint: COPD exacerbation, recent fall. Narrative: This is a 75-year-old male Cody [place] presented to the ED today with chief complaint of fall today. Patient had a fall about 2 weeks ago was on the floor for approximately 1-2 days, family states he fell about 10 steps today. His was gone because she is receiving chemotherapy and return home and found him. He went to [facility] was told he had a broken arm, possibly some cracked ribs and was discharged home. Patient has having difficulty getting about. He is having quite a bit pain. He has had increasing shortness of breath. Patient past medical history of COPD is typically on 3 L nasal cannula at home, CHF atherosclerotic heart disease of [place] coronary artery, GERD, chronic low back pain with narcotic dependence, pulmonary heart disease, polycythemia, PTSD, RJ, BPH, and anxiety. Patient has also been having bloody stools with diarrhea recently. Denies any lightheadedness. He denies any headache at this time. No neck pain. He does have some lower back discomfort. He has had some chronic back pain but this is worse than his typical. He denies any radiation down his legs. Patient does have some pain were he was told he had rib fractures. Patient has not had any nausea or vomiting. His states that his mentation, he has had some confusion. He has not been acutely worsening. Upon admission patient was mildly hypertensive with a blood pressure of 160/103, and tachypneic at a respiratory rate 34, 95% O2 saturation on 3 L. patient presented with leukocytosis a white count of 14.2 with a left shift, Neut # 11,400, sodium was mild decreased at 134, chloride 95, HC03 of 33 and a glucose of 206. Patient's liver enzymes were all moderately elevated with AST 131, ALT 75, alk-phos 157, total creatinine kinase of 2190. Patient's ABGs pCO2 65.8, PO2 77 HC03 37, total CO2 39, O2 saturation 94%, base excess 12, with an FiO2 of 30. Patient's troponin 1. 0.059, troponin 2. 0.048, troponin 3. 0.046 showing a slight trend down words, patient's EKG showed atrial flutter with a rate of [address] depression. CK-MB 3.09 likely a resolve of patient's fall and injury, BNP slightly elevated at 1450 (heart failure exac), procalcitonin 0.21. Stool cultures were negative. Chest CTA demonstrated small patchy right infiltrates and atelectasis post medial of the lower lobe. Some findings were concerning for pulmonary vascular hypertension. Also [id number] centrilobular emphysema. Patient's CT of abdomen and pelvis found hepatomegaly and hepatic steatosis, findings concerning for sigmoid colitis and sigmoid diverticulosis is seen without evidence of acute diverticulitis. CTs show possibly patchy infiltrate/pneumonia, also shows a colitis in the sigmoid region. Patient has been tachypneic but his pressures have improved he was initially mildly tachycardic. He has had 2 episodes of bloody stool in the ED. Hemoglobin was repeated approximately 6 hours later as well as troponin and these have not had significant changes. Patient is in atrial flutter but has been rate controlled. Blood gas appears to show chronic respiratory failure but without hypoxemia on his normal oxygen. Patient admitted for acute on chronic respiratory failure without hypoxemia exacerbation, Heart failure exacerbation with possible lower GI bleed and pneumonia. Discharge Providers Provider Date of admission: 02/18/21 18:52 Discharge Date: 02/20/21 Consults: 02/18/21 19:27 Consult to Dietitian, Adult Routine Comment: Reason For Exam: Patient on Ventilator and NPO 02/19/21 05:39 Consult to Occupational Therapy Evaluate & Treat Comment: fall Physician Instructions: Evaluate and treat Consult to Physician Routine Comment: Consulting Provider: Josefina Chiang Reason for consultation: GI bleed Has provider been notified: No 02/19/21 05:40 Consult to Physical Therapy Evaluate & Treat Comment: fall Physician Instructions: Evaluate and Treat Discharge provider: Anisha Chase MD Summary Hospital Course Discharge Diagnosis: 1. Acute sigmoid colitis 2. Chronic respiratory failure, secondary to COPD 3. Probable pneumonia, community-acquired 4. Left arm broken, present on admission, this occurred prior to this admission 5 PTSD, anxiety 6 Obstructive sleep apnea 7. Hypertension 8 Hyperlipidemia 9. BPH 10. Frequent falls, unsteady gait, recommendation for custodial however the patient refuses 11. Hyperglycemia, likely related to steroid/stress-induced Hospital Course: Patient is a 75-year-old male who was admitted to the hospital for shortness of breath, acute sigmoid colitis, and frequent falls. Patient had fallen prior to admission sustaining a left arm fracture. He presented to the hospital with increasing shortness of breath. He was also found to have acute sigmoid colitis on abdominal CT. In addition a chest x-ray, stat chest CT suggested pneumonia as well. The patient had rectal bleeding. He was started on IV antibiotics. He continued to have significant rectal bleeding however he did not require transfusion nor did he dropped his hemoglobin or hematocrit during the hospital stay. The patient is chronically on oxygen which continued. The antibiotics for his sigmoid colitis were sufficient to treat his pneumonia. The patient does have some anxiety and continued to have difficulty during this hospital stay. He was made NPO given his colitis which was very upsetting to him. Patient was dissatisfied with his care at the hospital in demanded to be discharged home. Prior to discharge she was seen by PT and OT. Based on their evaluation they recommended custodial. Patient refused custodial but was agreeable to in-home home health at his [address] on [facility]. While the patient is advised to remain in the hospital he is insisting on discharging home. As such he will be discharged home and follow-up with his PCP. Home health will be arranged. Exam Vital Signs (past 8 hours): - 02/20/21 04:00 02/20/21 08:00 Temperature 97.7 F 97.5 F L Pulse Rate 102 H 92 H Respiratory Rate 26 H 16 Blood Pressure 178/93 H 175/101 H Pulse Oximetry 95 92 Oxygen Delivery Method Nasal Cannula Oxygen Flow Rate 5 Narrative Exam Narrative: Agitated elderly male Lungs: Decreased breath sounds with scattered rhonchi Cardiac exam: Regular rate and rhythm normal S1-S2 with a 2/6 systolic ejection murmur Abdomen: Mildly distended, soft, nontender, no appreciable hepatosplenomegaly Extremities: Trace edema Objective Labs Result Diagrams: 02/19/21 05:40 02/19/21 05:40 Labs: Laboratory Results - last 24 hr 02/19/21 05:40 Hemoglobin A1c 6.6 H [facility] Medical History Anxiety Atherosclerotic heart disease of [place] coronary artery without angina pectoris Benign prostatic hyperplasia with lower urinary tract symptoms Cervicalgia Chronic asthma Chronic obstructive pulmonary disease with (acute) exacerbation Depression Essential (primary) hypertension Gastro-esophageal reflux disease without esophagitis Hypoxemia Impaired fasting glucose Lesion of ulnar nerve, 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 Neuropathy Obstructive sleep apnea Other allergic rhinitis Other specified pulmonary heart diseases Polycythemia PTSD (post-traumatic stress disorder) Surgical History (Updated 02/19/21 @ 05:09 by SHANI Coto) History of heart artery stent History of hernia surgery History of mandibular surgery Family History (Updated 02/19/21 @ 05:01 by SHANI Coto) Mother Stroke Sister Stroke Father Suicide Social History household members: spouse Smoking Status: Former smoker alcohol intake: current Discharge Assessment & Plan Assessment and Plan Assessment: 1. Acute sigmoid colitis 2. Pneumonia 3. Chronic respiratory failure, secondary to COPD 4. GERD 5. Hypertension 6. Obstructive sleep 7. Left arm fracture Plan of Treatment: Discharge home on medications as prescribed Follow-up with PCP in 1-2 weeks Home health PT OT and nursing Follow-up with orthopedics as prescribed Discharge Plan Discharge Plan Patient Disposition: Home Health Service Transfer to: Home Health, Other Provider Discharge Comment: [facility] Discharge orders & Medications Prescriptions: New amoxicillin-pot clavulanate [Augmentin] 875-125 mg tablet 1 tab PO BID Qty: 20 RF: 0 Continued albuterol sulfate 2.5 MG/3 ML solution for nebulization 3 ml INH BID Qty: 0 RF: 0 calcium carbonate 500 MG tablet 1 tab PO BID Qty: 0 RF: 0 mirtazapine [Remeron] 30 MG tablet 30 mg PO HS Qty: 0 RF: 0 alfuzosin [Uroxatral] 10 MG tablet extended release 24 hr 10 mg PO QDAY Qty: 0 RF: 0 CPAP: CPAP/PAP Full Face Mask HS Qty: 0 RF: 0 alfuzosin 10 mg tablet extended release 24 hr 10 mg PO DAILY RF: 0 multivitamin with minerals [Multiple Vitamin-Minerals] Tablet 1 tab PO DAILY RF: 0 Eye Allergy Relief 0.25894-0.315 % drops 1 drp EYE-BOTH QID PRN (Reason: allergy symptoms) RF: 0 HYDROmorphone liquid 1 mg/ml PO Q1H PRN (Reason: Shortness Of Breath) RF: 0 HYDROmorphone tablet See Rx Instructions mg PO Q3H PRN (Reason: Pain (Scale Score 4-6)) RF: 0 tiotropium bromide 18 mcg capsule, w/inhalation device 1 cap inhalation DAILY RF: 0 Serevent Diskus 50 mcg/dose blister with device 1 inh inhalation Q12H RF: 0 nitroglycerin 0.4 mg tablet, sublingual 0.4 mg sublingual Q5-15M PRN (Reason: Chest Pain) RF: 0 omeprazole 20 mg capsule,delayed release(DR/EC) 20 mg PO DAILY RF: 0 guaifenesin [Mucinex] 600 mg tablet extended release 12hr 600 mg PO BID RF: 0 amlodipine 2.5 mg tablet 2.5 mg PO DAILY RF: 0 aspirin [Adult Aspirin Regimen] 81 mg tablet,delayed release (DR/EC) 81 mg PO DAILY RF: 0 atorvastatin [Lipitor] 40 mg tablet 40 mg PO BEDTIME RF: 0 fluoxetine 80 mg capsule See Rx Instructions mg PO DAILY RF: 0 CLONAZEPAM tablet See Rx Instructions mg PO DIRECTED RF: 0 GABAPENTIN 900 mg capsule 900 mg PO QID RF: 0 Diet/Activity/Treatments Diet: Low-fat and Low-sodium Skin/Wound/Dressing Care Report to your healthcare provider any signs of infection, such as:: chills, fever and increased pain Quality VTE Deep Vein Thrombosis/Pulmonary Embolism Present on Admission: No
--- NOTE | 2021-02-20 12:01 | CM.DPC ---
Addendum entered by Delia Abdi R.N. 02/20/21 12:25: Faxed [facility] face sheet, DC Summary, orders and face to face. Called [facility], and spoke to Farheen. She will look for referral. Gave her this bilingual case manager's phone number if she has any questions. She indicated that there is a chance that they will not be able to get there until Thursday, but she will check with nursing. Original Note: DCP Cont: Patient has been refusing therapy, and wants to go home. He stated that he only wants to talk to the doctor, because he wants to go home so he can look after his . Dr. Chase had spoken to patient, and indicated that he wishes and insists on going home. His , Arabella, has been staying in local [facility] here in [place], for they both reside in [facility]. Dr. Chase is recommending home health, nursing,P.t, O.T. Patient agitated at the moment, gave [facility] brochure to caregiver to give to patient's , as they are the only home health agency that serves the area. P: Patient is to be discharged home with [facility]. Will complete face to face, and will fax over orders, DC Summary when completed. Delia Abdi RN/Belt Cutter
[2021-02-20] MEDS: IPRATROPIUM 0.5 MG/2.5 ML NEB INH (12:12)
--- NOTE | 2021-02-20 12:25 | OT.IPNOTE ---
Able to talk to pt's regarding pts prior level of function and cognition. Pt's feels due to his pain, now has more agitation. In addition, pt's states that pt being in the hospital is also making his PTSD worse. Able to give pt's information for equipment needs. No charge, pt to go home today.
--- NOTE | 2021-02-20 16:21 | PC.NURSE ---
Pt requesting d/c this am, he is also unhappy about his care at hospital. Pt given time to verb his feeling. Dr. Chase And Cardiac Cath Lab Manager Pinky made aware. They both went into room and spoke with pt. Decision made to send pt home with extra services though home health. Splint intact to lt arm. Brisk cap refill' here at time of discharge. Given d/c instruction and they were reviewed. Given priority load. Pt d/c home via auto w/spouid
== END 2021-02-20 14:30 | disposition home or self-care (01) | DRG 189 ==
LOC: ED 18:42 → AC 18:53
PROVIDERS: Nurse Practitioner Family; Admitting Provider Internal Medicine; Emergency Provider Emergency Medicine; Family Provider Family Medicine; Referring Provider Emergency Medicine; Visit Provider Internal Medicine
DX: J96.10 Chronic respiratory failure, unspecified whether with hypoxia or hypercapnia (principal); J18.9 Pneumonia, unspecified organism; K92.1 Melena; K52.9 Noninfective gastroenteritis and colitis, unspecified; I48.92 Unspecified atrial flutter; N13.8 Other obstructive and reflux uropathy; J44.9 Chronic obstructive pulmonary disease, unspecified; F17.210 Nicotine dependence, cigarettes, uncomplicated; I10 Essential (primary) hypertension; I25.10 Atherosclerotic heart disease of native coronary artery without angina pectoris; E66.9 Obesity, unspecified; Z68.34 Body mass index [BMI] 34.0-34.9, adult; K21.9 Gastro-esophageal reflux disease without esophagitis; R62.7 Adult failure to thrive; N40.1 Benign prostatic hyperplasia with lower urinary tract symptoms; R74.01 Elevation of levels of liver transaminase levels; G89.29 Other chronic pain; Z79.891 Long term (current) use of opiate analgesic; Z99.81 Dependence on supplemental oxygen; Z20.822 Contact with and (suspected) exposure to COVID-19
CPT/HCPCS: 36415; 36600; 71045; 71275; 74177; 80053; 81003; 82272; 82550; 82553; 82805; 83036; 83605; 83690; 83735; 83880; 84100; 84145; 84443; 84484; 85014; 85018; 85025; 86850; 86900; 86901; 87040; 87507; 87635; 93005; 93010; 94640; 94760; 96361; 96365; 96375; 97162; 97166; 97530; 99285; C9803; J1170; J1940; J2543; J2930; J3010; J7613

== ENCOUNTER 2021-02-26 14:17 | Emergency (ER) | payer MEDICARE, OTHER, SELFPAY ==
[2021-02-25 17:34] VITALS: BMI 34.7
[2021-02-26 14:22] VITALS: BP 139/80; PULSE 106; RESP 20; TEMP 37.3; O2SAT 96
[2021-02-26 14:30] VITALS: BP 139/80; PULSE 108; RESP 12; O2SAT 95
[2021-02-26 15:00] VITALS: BP 161/78; PULSE 102; RESP 16; O2SAT 94
--- NOTE | 2021-02-26 15:21 | PC.NURSE ---
Pt reports pulled on arm on accident and now there is increased pain 03/09. Pt arrived with arm already splinted from previous fracture
[2021-02-26 15:40] VITALS: BP 132/71; PULSE 104; RESP 14; O2SAT 94
--- NOTE | 2021-02-26 15:47 | CM.SWNOTE ---
Addendum entered by Delicia Woodson 02/26/21 18:28: SCHOOL OFFICE MANAGER calls phone number for patient's daughter Laurita (Ph. # [phone]) no answer, box is full and SCHOOL OFFICE MANAGER unable to leave . SCHOOL OFFICE MANAGER calls phone number for patient's sister Stefanie (Ph. # [phone]), Brother in Law Don answers the phone and reports that patient's sister a few months ago. Don reports no known family members or friends that can assist patient with transportation or provider support. SCHOOL OFFICE MANAGER calls phone number for patient's Arabella (Ph. # [phone]) and leaves requesting return call. Plan: Patient is medically clear to d/c home and to f/u with ortho and utilize current [facility] referral MARGY Canela Original Note: SCHOOL OFFICE MANAGER Note SCHOOL OFFICE MANAGER receives consult and enters room to meet with patient. Patient is 75 y/o male who presents to this ED via [facility] after injury on fractured left arm. Patient d/c'd from this hospital with [facility] on 02/20/21 after fracture. Patient reports that HH contacted him this week but services have not started yet. Patient presents as agitated and somber. Patient reports that he lives with on [facility] and has cancer, patient reports that is currently in [place] at [facility] until and patient's daughter is present in [place] with . Patient reports concern for caring for . Patient states he injured his arm when he slipped in the dark kitchen and fell down stairs. Patient reports he was not oriented at the time. Patient reports he is a [employer] vet and he has PTSD and is prescribed psych meds and he turns into a monster without meds. Patient states he sees SW therapist on [facility] (SCHOOL OFFICE MANAGER unsure of name spelling, possible Navya Rad). Patient reports that his arm is fractured and he just had an xray today at PCP appt with Dr. Ortiz at [facility]. Patient states that he did not have a good experience at his last hospital stay and spoke to the attending hospitalist regarding this. Patient states that he does not have any other friends or family on [place] that could assist him. patient states that he was flown in by [facility] today after his PCP appt. Patient reports he has hx of CPAP and uses oxygen take at home, patient currently using oxygen at this time. Patient states he was on hospice 2.5 years ago but he was able to recuperate. Plan: ED Provider to assess patient for POC, if patient is to d/c home patient has [facility] referral in place. SCHOOL OFFICE MANAGER to f/u with further needs. MARGY Canela
--- NOTE | 2021-02-26 16:01 | ED_ITS ---
HPI - Extremity Injury (Upper) General Chief Complaint: Extremity Injury, Upper Stated Complaint: Wrist pain,hx fracture Time Seen by Provider: 02/26/21 15:17 Source: patient and EMS Mode of arrival: EMS Limitations: no limitations History of Present Illness HPI narrative: Patient is a 75-year-old male who presents with increasing left arm pain. He has a known fracture of both radius and ulna which apparently hap pened after a fall around the beginning of the month. He was since admitted to this hospital February 18 through the and released home. It was actually noted that he should go to a retirement facility however he demanded that he be released home. Unclear exactly why he is presenting today day but it is felt that the fracture is not dislocated in needs to be re set. He has chronic COPD on 3 L of home oxygen. He has a history of PTSD and is requesting anxiety medication Related Data Home Medications Medication Instructions Recorded Confirmed calcium carbonate 500 mg calcium 1 tab PO BID #0 10/13/16 02/20/21 (1,250 mg) tablet mirtazapine 30 mg tablet (Remeron) 30 mg PO HS #0 10/13/16 02/18/21 CPAP: CPAP/PAP Full Face Mask HS #0 01/08/17 GABAPENTIN 900 mg PO QID 01/22/21 02/18/21 HYDROmorphone 1 mg/ml PO Q1H PRN 01/22/21 02/20/21 HYDROmorphone See Rx Instructions PO Q3H PRN 01/22/21 02/20/21 aspirin 81 mg tablet,delayed 81 mg PO DAILY 01/22/21 02/18/21 release (Adult Aspirin Regimen) guaifenesin 600 mg tablet, 600 mg PO BID 01/22/21 02/18/21 extended release 12 hr (Mucinex) multivitamin with minerals 1 tab PO DAILY 01/22/21 02/20/21 (Multiple Vitamin-Minerals) naphazoline-pheniramine 0.77149 1 drp EYE-BOTH QID PRN ml 01/22/21 02/20/21 %-0.315 % eye drops (Eye Allergy Relief (naphazoline-pheniramine)) nitroglycerin 0.4 mg sublingual 0.4 mg SUBLINGUAL Q5-15M PRN 01/22/21 02/20/21 tablet omeprazole 20 mg capsule,delayed 20 mg PO DAILY 01/22/21 02/20/21 release salmeterol 50 mcg/dose blister 1 inh INHALATION Q12H 01/22/21 02/20/21 powder for inhalation (Serevent Diskus) Previous Rx's Medication Instructions Recorded amoxicillin 875 mg-potassium 1 tab PO BID #20 tab 02/20/21 clavulanate 125 mg tablet (Augmentin) CLONAZEPAM See Rx Instructions PO QID #40 tab 02/25/21 albuterol sulfate 2.5 mg INHALATION BID #90 ml 02/25/21 alfuzosin 10 mg tablet,extended 10 mg PO DAILY #90 tab 02/25/21 release 24 hr amlodipine 2.5 mg tablet 2.5 mg PO DAILY #90 tab 02/25/21 atorvastatin 40 mg tablet (Lipitor) 40 mg PO BEDTIME #90 tab 02/25/21 fluoxetine See Rx Instructions PO QID #360 02/25/21 caplet fluoxetine 20 mg capsule 20 mg PO QID #360 cap 02/25/21 tiotropium bromide 18 mcg capsule 1 cap INHALATION DAILY #180 inh 02/25/21 with inhalation device hydromorphone 2 mg tablet 2 mg PO Q4-6H PRN #20 tab 02/27/21 (Dilaudid) Allergies Allergy/AdvReac Type Severity Reaction Status Date / Time zolpidem [From AMBIEN] Allergy Severe [place] Verified 02/18/21 18:39 FLASH BACKS oxycodone Allergy Unknown Verified 02/18/21 18:39 tapentadol [TAPENTADOL] AdvReac Intermediate DON'T USE Verified 02/18/21 18:39 PLASTIC TAPE - SKIN FIREY RED Review of Systems Review of Systems Narrative: GENERAL: Denies chills,fever HEENT: Denies throat pain RESPIRATORY: Denies dyspnea, cough, wheezing CARDIOVASCULAR: Denies chest pain, palpitations GASTROINTESTINAL: Denies nausea, vomiting MUSCULOSKELETAL: Known left forearm fracture SKIN: No rash, no laceration, no pruritus NEUROLOGIC: Denies weakness, dizziness, headache, numbness 8 point review of systems is negative except for those stated above and HPI Patient History Medical History (Updated 02/26/21 @ 17:58 by Leyda Lay DO) Anxiety Atherosclerotic heart disease of [place] coronary artery without angina pectoris Benign prostatic hyperplasia with lower urinary tract symptoms Cervicalgia Chronic asthma Chronic obstructive pulmonary disease with (acute) exacerbation Depression Essential (primary) hypertension Gastro-esophageal reflux disease without esophagitis Hypoxemia Impaired fasting glucose Lesion of ulnar nerve, 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 Neuropathy Obstructive sleep apnea Other allergic rhinitis Other specified pulmonary heart diseases Polycythemia PTSD (post-traumatic stress disorder) Surgical History (Updated 02/19/21 @ 05:09 by JAGRUTI Coto-) History of heart artery stent History of hernia surgery History of mandibular surgery Family History (Updated 02/19/21 @ 05:01 by JAGRUTI Coto-CONNIE) Mother Stroke Sister Stroke Father Suicide Social History household members: spouse Smoking Status: Former smoker alcohol intake: current Smoking Status: Former smoker alcohol intake frequency: holidays/special occasions only Substance Use Type: marijuana Exam Initial Vital Signs Initial Vital Signs: Vital Signs Temperature 99.1 F 02/26/21 14:22 Pulse Rate 106 H 02/26/21 14:22 Respiratory Rate 20 02/26/21 14:22 Blood Pressure 139/80 02/26/21 14:22 Pulse Oximetry 96 02/26/21 14:22 GENERAL: Alert 75-year-old male on oxygen but on home oxygen HEENT: Head atraumatic,EOMI, pupils reactive, face symmetric, moist mucous membranes CARDIOVASCULAR: Regular rate and rhythm without murmurs, rubs or gallops. RESPIRATORY: Breath sounds equal bilaterally, no wheezes rales or rhonchi. EXTREMITIES: Normal range of motion, no clubbing or edema. Neurovascularly intact Left arm in sugar-tong. Cap refill less than 2 seconds able to move fingers without severe pain. NEUROLOGICAL: Alert and oriented x4 SKIN: Warm, dry, no laceration, no petechiae, no rashes or lesions. Course Orders Ordered: ED Orders 02/26/21 14:39 Consult to GRADUATE ADVISOR - Film Color Tester Stat 02/26/21 16:04 XR chest 1V Stat 02/26/21 16:19 EKG-12 Lead Routine 02/26/21 16:28 Complete Blood Count AUTO DIFF Stat Comprehensive Metabolic Panel Stat NT-proBNP (BNP-Adult 18+) Stat Troponin & CK Cardiac Panel Stat Vital Signs Vital signs: Vital Signs - 8 hr 02/26/21 14:22 02/26/21 14:30 02/26/21 15:00 Temperature 99.1 F Pulse Rate 106 H 108 H 102 H Respiratory Rate 20 12 16 Blood Pressure 139/80 139/80 161/78 H Pulse Oximetry 96 95 94 02/26/21 15:40 02/26/21 16:51 Temperature Pulse Rate 104 H 99 H Respiratory Rate 14 12 Blood Pressure 132/71 147/77 H Pulse Oximetry 94 94 MDM - Extremity Injury (Upper) Lab Data Result diagrams: 02/26/21 16:28 02/26/21 16:28 Labs: Lab Results 02/26/21 02/26/21 02/26/21 Range/Units 16:28 16:28 16:28 WBC 12.6 H (4.5-11.0) X10^3/uL RBC 5.00 (4.5-5.9) X10^6/uL Hgb 15.7 (13.5-17.5) g/dL Hct 48.5 (41-53) % MCV 97.0 (80-100) fL MCH 31.4 (26-34) PG MCHC 32.4 (30-36) % RDW 14.8 (11.6-14.8) % Plt Count 192 (150-400) X10^3/uL Neut % (Auto) 67.0 (50-75) % Lymph % (Auto) 20.3 L (25-40) % [place] % (Auto) 10.7 (3-14) % Eos % (Auto) 1.2 L (2-4) % Baso % (Auto) 0.8 (0-2) % Neut # (Auto) 8500 H (4724-5258) /uL Lymph # (Auto) 2600 (8818-3370) /uL [place] # (Auto) 1300 H (0-900) /uL Eos # (Auto) 100 (0-450) /uL Baso # (Auto) 100 (0-100) /uL Sodium 136 L (137-145) mmol/L Potassium 3.1 L (3.4-5.1) mmol/L Chloride 98 (98-107) mmol/L Carbon Dioxide 33 H (22-32) mmol/L BUN 10 (9-20) mg/dL Creatinine 0.80 (0.66-1.25) mg/dL Estimated GFR > 60.0 (>60) mL/min BUN/Creatinine Ratio 12.5 (6-22) Glucose 177 H D (80-110) mg/dL Calcium 8.8 (8.4-10.2) mg/dL Total Bilirubin 1.0 (0.2-1.3) mg/dL AST 45 (17-59) IU/L ALT 65 H (<50) IU/L Alkaline Phosphatase 168 H (38-126) U/L Total Creatine Kinase 53 L D (55-170) U/L CK-MB (CK-2) TNP CK-MB (CK-2) Rel Index TNP Troponin I < 0.012 (0.01-0.034) ng/mL NT-Pro-B Natriuret Pep 181 H (<125) pg/mL Total Protein 6.5 (6.3-8.2) g/dL Albumin 3.6 (3.5-5.0) g/dL Globulin 2.9 (1.7-4.1) g/dL Albumin/Globulin Ratio 1.2 (1.0-2.8) Urine Dip Bedside Urine Glucose Negative Bedside Urine Bilirubin - Negative Bedside Urine Ketone - Negative Urine Specific Adrian 1.025 Bedside Urine Occult Blood - Negative Bedside Urine pH 6.0 Bedside Urine Protein +/- 15 Bedside Urine Urobilinogen - Negative Bedside Urine Nitrite - Negative Bedside Urine Leukocytes - Negative Esterase Imaging Data Extremity x-ray #1: Radiologist's Impression: PROCEDURE: XR FOREARM LT 2V INDICATIONS: FU fracture TECHNIQUE: 2 views of the forearm were acquired. COMPARISON: None. FINDINGS: Bones: No dislocations. No suspicious bony lesions. Transverse fractures through the diaphysis of the radius and ulna. There appears to be partial overlap at the radius fracture plane resulting in a angulation abnormality due to this overlap. Soft tissues: No suspicious soft tissue calcifications or masses. IMPRESSION: Overlapped radius fracture at the midshaft of the diaphysis, the ulna fracture is also transverse but is not not overlapped. Dictated by: Taqueria Rasheed M.D. on 02/26/2021 at 11:33 Chest x-ray: Radiologist's Impression: PROCEDURE: XR CHEST 1V INDICATIONS: increasing sob TECHNIQUE: One view of the chest was acquired. COMPARISON: [facility], CT, CT ANGIO CHEST PE PROTOCOL, 02/18/2021, 16:54. [facility], CR, XR CHEST 1V, 02/18/2021, 12:58. FINDINGS: Surgical changes and devices: None. Lungs and pleura: No consolidation. Suspect minimal opacity in the right lung. No pleural effusions or pneumothorax. Mediastinum: Mediastinal contours appear normal. Heart size is normal. Bones and chest wall: No suspicious bony lesions. Overlying soft tissues appear unremarkable. IMPRESSION: No consolidation. Suspect minimal opacity in the right lung. This could be due to pulmonary vasculature engorgement or atelectasis. Less likely infectious/inflammatory etiology. Dictated by: Francis Negro M.D. on 02/26/2021 at 16:39 ECG Data Interpretation: Atrial flutter rate [address] changes or T-wave inversions simil ar to previous EKG MDM Narrative Medical decision making narrative: Patient was under the impression who Munoz over here to have his arm fixed. However his arm has been broken for most of the month. He has not call to follow-up with orthopedics. He was actually admitted last week with atrial flutter. He was offered retirement at that time but declined and was set up with physical therapy. I discussed case with Dr. Barrera the hospitalist who states that there is nothing that admission would accomplish. I discussed case with Dr. Marin orthopedics who states the patient needs to call to have outpatient follow-up his arm does need surgery. I have told all of this to the patient who does not seem to comprehend but I have also spoken to his . His is currently undergoing chemotherapy at [facility] she is here in the emergency department to pick him up. I have explained the outpatient follow-up plan. She agrees and understands. Discharge Plan Departure Patient Disposition: Home Clinical Impression: Closed fracture of left forearm Qualifiers: Encounter type: subsequent encounter Fracture healing: with malunion Qualified Code(s): S52.92XP - Unspecified fracture of left forearm, subsequent encounter for closed fracture with malunion Instructions: DI for Forearm Fracture Activity Restrictions/Additional Instructions: *You have been diagnosed with left forearm fracture *What to do: It is very important that you follow-up with Orthopedics in order to have surgery on her arm and have it heal correctly. You are responsible for calling them. I have spoken to Dr. Marin today. At this time do not meet admission criteria. *Continue to take medications as directed *Follow up with your primary care provider in 2-3 days *Return to ER if you should have any new, worsening or concerning symptoms Prescriptions: No Action calcium carbonate 500 MG tablet 1 tab PO BID Qty: 0 RF: 0 mirtazapine [Remeron] 30 MG tablet 30 mg PO HS Qty: 0 RF: 0 CPAP: CPAP/PAP Full Face Mask HS Qty: 0 RF: 0 hydromorphone [Dilaudid] 2 mg tablet 2 mg PO Q4-6H PRN (Reason: pain) Qty: 20 RF: 0 amoxicillin-pot clavulanate [Augmentin] 875-125 mg tablet 1 tab PO BID Qty: 20 RF: 0 alfuzosin 10 mg tablet extended release 24 hr 10 mg PO DAILY Qty: 90 RF: 0 atorvastatin [Lipitor] 40 mg tablet 40 mg PO BEDTIME Qty: 90 RF: 0 albuterol sulfate 2.5 mg /3 mL (0.083 %) solution for nebulization 2.5 mg inhalation BID Qty: 90 RF: 0 amlodipine 2.5 mg tablet 2.5 mg PO DAILY Qty: 90 RF: 0 tiotropium bromide 18 mcg capsule, w/inhalation device 1 cap inhalation DAILY Qty: 180 RF: 0 CLONAZEPAM tablet See Rx Instructions mg PO QID Qty: 40 RF: 0 fluoxetine 80 mg capsule See Rx Instructions mg PO QID Qty: 360 RF: 0 fluoxetine 20 mg capsule 20 mg PO QID Qty: 360 RF: 1 multivitamin with minerals [Multiple Vitamin-Minerals] Tablet 1 tab PO DAILY RF: 0 Eye Allergy Relief 0.98934-7.315 % drops 1 drp EYE-BOTH QID PRN (Reason: allergy symptoms) RF: 0 HYDROmorphone liquid 1 mg/ml PO Q1H PRN (Reason: Shortness Of Breath) RF: 0 HYDROmorphone tablet See Rx Instructions mg PO Q3H PRN (Reason: Pain (Scale Score 4-6)) RF: 0 Serevent Diskus 50 mcg/dose blister with device 1 inh inhalation Q12H RF: 0 nitroglycerin 0.4 mg tablet, sublingual 0.4 mg sublingual Q5-15M PRN (Reason: Chest Pain) RF: 0 omeprazole 20 mg capsule,delayed release(DR/EC) 20 mg PO DAILY RF: 0 guaifenesin [Mucinex] 600 mg tablet extended release 12hr 600 mg PO BID RF: 0 aspirin [Adult Aspirin Regimen] 81 mg tablet,delayed release (DR/EC) 81 mg PO DAILY RF: 0 GABAPENTIN 900 mg capsule 900 mg PO QID RF: 0 Referrals: [facility] [Provider Group] Vivek Ortiz MD [Primary Care Provider] -
--- NOTE | 2021-02-26 16:04 | DI.RAD.S_ITS ---
PROCEDURE: XR CHEST 1V INDICATIONS: increasing sob TECHNIQUE: One view of the chest was acquired. COMPARISON: [facility], CT, CT ANGIO CHEST PE PROTOCOL, 02/18/2021, 16:54. [facility], CR, XR CHEST 1V, 02/18/2021, 12:58. FINDINGS: Surgical changes and devices: None. Lungs and pleura: No consolidation. Suspect minimal opacity in the right lung. No pleural effusions or pneumothorax. Mediastinum: Mediastinal contours appear normal. Heart size is normal. Bones and chest wall: No suspicious bony lesions. Overlying soft tissues appear unremarkable. IMPRESSION: No consolidation. Suspect minimal opacity in the right lung. This could be due to pulmonary vasculature engorgement or atelectasis. Less likely infectious/inflammatory etiology. Dictated by: Francis Negro M.D. on 02/26/2021 at 16:39 Approved by: Francis Negro M.D. on 02/26/2021 at 16:41
[2021-02-26 16:37] LABS: Add Manual Diff / Slide Review NO; Basophils Absolute Auto 100 /uL (0-100); Basophils Percent Auto 0.8 % (0-2); Eosinophils Absolute Auto 100 /uL (0-450); Eosinophils Percent Auto 1.2 % (2-4); Hematocrit 48.5 % (41-53); Hemoglobin 15.7 g/dL (13.5-17.5); Lymphocytes Absolute Auto 2600 /uL (1100-4500); Lymphocytes Percent Auto 20.3 % (25-40); Mean Corpuscular HGB Conc 32.4 % (30-36); Mean Corpuscular Hemoglobin 31.4 PG (26-34); Monocytes Absolute Auto 1300 /uL (0-900); Monocytes Percent Auto 10.7 % (3-14); Neutrophils Absolute Auto 8500 /uL (1500-7000); Platelet Count 192 X10^3/uL (150-400); Red Cell Distribution Width 14.8 % (11.6-14.8); White Blood Cell Count 12.6 X10^3/uL (4.5-11.0)
[2021-02-26 16:48] LABS: Creatine Kinase 53 U/L (55-170)
[2021-02-26 16:49] LABS: Alanine Aminotransferase 65 IU/L (<50); Albumin 3.6 g/dL (3.5-5.0); Albumin Globulin Ratio 1.2 (1.0-2.8); Alkaline Phosphatase 168 U/L (38-126); Aspartate Aminotransferase 45 IU/L (17-59); BUN Creatinine Ratio 12.5 (6-22); Blood Urea Nitrogen 10 mg/dL (9-20); Calcium 8.8 mg/dL (8.4-10.2); Carbon Dioxide 33 mmol/L (22-32); Chloride 98 mmol/L (98-107); Estimated Glomerular Filt Rate > 60.0 mL/min (>60); Globulin 2.9 g/dL (1.7-4.1); Glucose 177 mg/dL (80-110); HEMOLYSIS < 15 (0-50); Potassium 3.1 mmol/L (3.4-5.1); Sodium 136 mmol/L (137-145); Total Protein 6.5 g/dL (6.3-8.2)
[2021-02-26 16:51] VITALS: BP 147/77; PULSE 99; RESP 12; O2SAT 94
[2021-02-26 17:01] LABS: NT-proBNP (BNP-Adult 18+) 181 pg/mL (<125); Troponin I < 0.012 ng/mL (0.01-0.034)
[2021-02-26 17:30] VITALS: BP 145/77; PULSE 102; RESP 26; O2SAT 92
== END 2021-02-26 20:39 | disposition home or self-care (01) ==
PROVIDERS: Emergency Provider Emergency Medicine; Family Provider Family Medicine; PCP Family Medicine
DX: S52.92XP Unspecified fracture of left forearm, subsequent encounter for closed fracture with malunion (principal); R06.02 Shortness of breath
CPT/HCPCS: 36415; 71045; 73090; 80053; 81003; 82550; 83880; 84484; 85025; 93005; 99284

== ENCOUNTER 2021-03-01 07:51 | Observation (INO) | payer MEDICARE, OTHER, SELFPAY ==
[2021-02-25 17:34] VITALS: BMI 34.7
[2021-03-01] VITALS (22 sets, daily range): BP systolic 103–150; BP diastolic 59–90; PULSE 81–105; RESP 12–20; TEMP 36.2–37; O2SAT 91–97; BMI 37.6
[2021-03-01 08:25] LABS: COVID19 -Nasal RAPID Negative (Negative)
--- NOTE | 2021-03-01 10:13 | PM.PREOP ---
Pre-operative Note COVID-19 COVID-19 status: Negative Result date/Date tested (Pos, Neg/Pending): 03/01/21 Interval Note History & Physical reviewed/Exam performed by Physician: Yes Changes to H&P: No
--- NOTE | 2021-03-01 10:20 | SUR.OPER ---
Supine on padded OR bed, head on pillow, operative arm on hand table, nonoperative arm secured on padded arm board at <90 degrees abduction, legs uncrossed, safety belt at thigh, tape over blanket over lower legs.
[2021-03-01] MEDS: LACTATED RINGERS 1,000 ML 42 ML IV (10:48)
[2021-03-01] MEDS: BUPIVACAINE 0.5% (PF) VIAL 30 ML INJ (11:46)
[2021-03-01] MEDS: CEFAZOLIN 1 GM VIAL 2 GM IV (11:46)
[2021-03-01] MEDS: ACETAMINOPHEN IV 1,000 MG/100 ML VIAL 400 MG IV (12:41)
[2021-03-01] MEDS: fentaNYL 100 MCG/2 ML INJ IV ×4 (13:15→13:46)
--- NOTE | 2021-03-01 13:26 | DI.RAD.S_ITS ---
PROCEDURE: XR FOREARM LT 2V INDICATIONS: S/P ORIF of forearm fracture TECHNIQUE: 2 views of the forearm were acquired. COMPARISON: [facility] ([place]), CR, XR FOREARM LT 2V, 02/26/2021, 11:18. FINDINGS: Bones: Postsurgical changes compatible with ORIF of ulna and radius fractures. Orthopedic plate and screws have been placed for internal fixation. There is anatomic alignment of the ulna and radius fractures. Soft tissues: No suspicious soft tissue calcifications or masses. IMPRESSION: Status post ORIF of left ulna and radius fractures with anatomic alignment. Dictated by: Alison Dee MD, PhD on 03/01/2021 at 14:17 Approved by: Alison Dee MD, PhD on 03/01/2021 at 14:18
--- NOTE | 2021-03-01 13:28 | PM.OP.1 ---
Operative Date/Time/Diagnoses Date of procedure: 03/01/21 Time of procedure: 13:29 Pre-op diagnosis: Fracture of the left radius and ulnar shaft. Post-op diagnosis: same Procedure & Clinicians Procedure: Open reduction internal fixation of left radius and ulnar shaft fractures. Same procedure as scheduled: Yes Indications: The patient is a 75-year-old gentleman who several weeks ago broke his forearm. He had a prolonged difficulty obtaining follow-up but was seen in my office yesterday and scheduled for surgery today after discussion the risks benefits and alternatives. Risks discussed included but were not limited to: Failure to improve, stiffness, infection, nerve damage, deep venous thrombosis, pulmonary embolism, stroke, myocardial infarction, aspiration pneumonia, permanent paralysis and . Surgeon: Ubaldo Marin Click Yes if Unassisted: Yes Anesthesia Type: General and Local Operative Notes Findings: transverse fractures of both the radius and ulna in the junction of the mid to distal thirds. The ulnar fracture was comminuted. Reduction was anatomic. Closure Type: primary Specimen(s): none sent Prosthetic devices, grafts, tissues, transplants, or devices: Implants used in this procedure were manufactured by the [employer] and included to 6 hole 3.5 mm DCP plates. There were a total of 12 screws used. Applied: implant(s) Estimated Blood Loss (mL): 50 Blood products transfused: none Tourniquet time (min): 54 Procedure in detail: The patient was seen in the preoperative area where he up then if I had his left arm as the operative site and this was marked with my initials. He received preoperative antibiotics and was taken to the operating room and placed on the operating room table in a supine position. A general anesthetic was induced. A tourniquet was placed around his proximal left arm and the splint removed. The arm was prepared from the fingertips to the tourniquet with ChloraPrep and draped through sterile drapes. A motion and time study teacher-out was performed prior to incision. The arm was elevated and exsanguinated with an Esmarch bandage, the tourniquet was inflated to 250 mmHg. Initially the arm was pronated and the radial fracture was approached through a dorsal approach. The outcropper muscles were immediately overlying the fracture and they were mobilized to be moved to the ulnar side. The fracture was reduced. A template was placed along the radius to approximate the curvature and a dynamic compression plate was bent to match this. This was then applied and 2 screws were placed, 1 on either side of the fracture to hold it reduced. This was performed in compression mode for the 2nd screw. A sponge was then placed in this incision and the elbow was flexed to allow approach to the ulna. A 2nd incision was created overlying the subcutaneous border of the ulna and this was carried to the fracture. The ulnar fracture was comminuted and somewhat unstable. It was reduced and a straight DCP plate applied. Again 1 screw on either side of the fracture was applied and a compression screw was placed as the 2nd screw. I then confirmed that I had not lost reduction of the radius before completing the placement of the ulnar screws. We then returned to the radial plate and completed screw placement here. The position of all hardware in fractures were confirmed as being appropriate on the AP and lateral views of fluoroscopy. The wounds were copiously irrigated. The tourniquet was deflated at a total tourniquet time of 54 minutes. Hemostasis was obtained with electrocautery. The subcutaneous layers were closed with 3-0 Vicryl and the skin with lou. A total of 20 mL 0.5% plain Marcaine was injected into the subcutaneous tissues for postoperative pain control. Half of this was used in each incision. A dressing of Xeroform, sterile 4x4s, sterile cast padding and dorsal and volar slab splints were applied. The patient was allowed to awaken from his anesthetic in the operating room and was taken to the recovery room in good condition having tolerated the procedure well. Complications: none Post-operative Condition: stable Disposition: PACU Plan for aftercare: The patient will be admitted to the hospital overnight for observation due to his extensive medical history. A consult has been obtained from the hospitalist service. Provided he is medically stable he may be discharged home tomorrow morning.
--- NOTE | 2021-03-01 13:30 | SUR.PHASEI ---
Pt alert, oriented to hospital, telling jokes and thanking healthcare workers, fingers are warm and pink bilateral, sensation intact, cap refill less than 2 seconds
[2021-03-01] MEDS: HYDROMORPHONE 2 MG INJ IV ×4 (13:44→14:00)
[2021-03-01] MEDS: OXYCODONE/ACETAMINOPHEN 5/325 TABLET 1 TAB PO (13:57)
--- NOTE | 2021-03-01 14:24 | SUR.PHASEI ---
Report called to Inpatient RN, waiting room clean to transport-
--- NOTE | 2021-03-01 14:27 | SUR.PHASEI ---
Giovanni put back on pt per his request.
[2021-03-01] MEDS: LACTATED RINGERS 1,000 ML 125 ML IV ×2 (15:29→22:03)
[2021-03-01] MEDS: HYDROMORPHONE 2 MG TABLET PO ×2 (15:30→21:57)
--- NOTE | 2021-03-01 16:48 | PC.NURSE ---
Addendum entered by Lisbeth De Oliveira R.N. 03/01/21 23:51: Suggested to patient at the end of this shift pt follow up soon with sleep clinic/MD for evaluation of sleep apnea. Addendum entered by Lisbeth De Oliveira R.N. 03/01/21 23:11: Medicated with dilaudid as per pt request and pt declines hs gabapentin. States left arm pain 7.5/10. Ice provided and elevation encouraged. Addendum entered by Lisbeth De Oliveira R.N. 03/01/21 20:55: Saturation level with cpap and 02 bleed in as set by R.T. 88-89% and as low as 77%. R.T. called to room to consult. Pt does waken easily to voice and oxygen level increases to 91%. Addendum entered by Lisbeth De Oliveira R.N. 03/01/21 19:28: Pt's spouse brings pt's cpap from hotel. As per Dr. Vivar's orders, sutures removed from left lateral ankle. Erythema is present surrounding suture line. No drainage. Placed thin steristrips. Pt tolerated this well. R.T. in to set up cpap. Addendum entered by Lisebth De Oliveira R.N. 03/01/21 18:31: R.T. providing pt with I.S. teaching. Addendum entered by Lisbeth De Oliveira R.N. 03/01/21 18:08: Pt requests additional narcotics. Informed pt this auto service writer wants R.T. to evaluate and treat prior to pt receiving further narcotics. Has finished dinner and now has cannula back in mouth with oxygen level 97% on 6L. Addendum entered by Lisbeth De Oliveira R.N. 03/01/21 18:01: Pt eating dinner in own position of comfort which is not bolt upright d/t back pain. Removes cannula from mouth as states cannot wear in nares d/t deviated septum. Oxygen level 76-81%. R.T. was called to room to assist in managing this pt and pt's oxygen needs. Addendum entered by Lisbeth De Oliveira R.N. 03/01/21 17:30: Message left on pt's spouse's cell phone to please bring pt's cpap to hospital for pt's use. Dr. Vivar in to see patient. Original Note: Pt's belongings brought to room 208 from PACU. Pt's spouse arrives @ bedside. Pt c/o left arm pain and back pain 7-04/09. Medicated with po dilaudid. Left arm supported on pillow with ice x 2 to extremity. Exposed digits to left hand are warm to touch and pink in color with brisk cap refill and pt admits to full sensation. Left fingers are warm to touch. Pt is oxygen dependent @ home and this was increased to 6L per nc as pt sleeps and oxygen levels drop to high 70's and low 80's on 4L per nc. Pt reports this is amount of oxygen used as home (4-6L). Pt prefers cannula in mouth d/t deviated septum. Pt and spouse have not provided pt's cpap. Head of bed raised d/t sleep apnea to allow for maximum aeration. BL calf scd's in place. Pt denies nausea.
--- NOTE | 2021-03-01 17:51 | PM.CN ---
History of Present Illness Consult details Date Patient Seen: 03/01/21 Time Patient Seen: 17:30 Chief complaint: OPB Reason for consult: COPD, chronic respiratory failure Requesting provider: Ubaldo Marin Narrative: Patient is a 75-year-old male with history of chronic hypoxic and hypercapnic respiratory failure, COPD, RJ on CPAP, CAD, PTSD, anxiety, hypertension, BPH who was admitted for elective ORIF of left radius and ulnar shaft fractures. Surgery was performed by Dr. Marin. Patient is admitted overnight for postop observation. Patient was admitted last month and treated for probable pneumonia. He fractured his arm about 2 weeks ago and ended up with displaced fracture. Patient states his respiratory status has been recently stable. He uses CPAP during wake and sleep hours. At home, he is on 4 L O2 at rest and 6 L with exertion. He typically uses his albuterol inhaler twice a day and albuterol nebulizer at bedtime. He has got significant psychiatric issues dating back to [place] service and has been maintained on clonazepam 2 mg 4 times daily, mirtazapine and fluoxetine. Patient's chief complaint at this time is of postop pain not relieved with 2 mg hydromorphone tablet. Meds Home Medications and Allergies Home Medications Medication Instructions Recorded Confirmed Type calcium carbonate 500 mg calcium 1 tab PO BID #0 10/13/16 02/20/21 History (1,250 mg) tablet mirtazapine 30 mg tablet (Remeron) 30 mg PO HS #0 10/13/16 03/01/21 History CPAP: CPAP/PAP Full Face Mask HS #0 01/08/17 History GABAPENTIN 900 mg PO QID 01/22/21 03/01/21 History aspirin 81 mg tablet,delayed 81 mg PO DAILY 01/22/21 03/01/21 History release (Adult Aspirin Regimen) guaifenesin 600 mg tablet, 600 mg PO BID 01/22/21 03/01/21 History extended release 12 hr (Mucinex) multivitamin with minerals 1 tab PO DAILY 01/22/21 03/01/21 History (Multiple Vitamin-Minerals) naphazoline-pheniramine 0.21505 1 drp EYE-BOTH QID PRN ml 01/22/21 03/01/21 History %-0.315 % eye drops (Eye Allergy Relief (naphazoline-pheniramine)) nitroglycerin 0.4 mg sublingual 0.4 mg SUBLINGUAL Q5-15M PRN 01/22/21 03/01/21 History tablet omeprazole 20 mg capsule,delayed 20 mg PO DAILY 01/22/21 03/01/21 History release salmeterol 50 mcg/dose blister 1 inh INHALATION Q12H 01/22/21 03/01/21 History powder for inhalation (Serevent Diskus) CLONAZEPAM See Rx Instructions PO QID #40 tab 02/25/21 03/01/21 Rx albuterol sulfate 2.5 mg INHALATION BID #90 ml 02/25/21 03/01/21 Rx alfuzosin 10 mg tablet,extended 10 mg PO DAILY #90 tab 02/25/21 03/01/21 Rx release 24 hr amlodipine 2.5 mg tablet 2.5 mg PO DAILY #90 tab 02/25/21 03/01/21 Rx atorvastatin 40 mg tablet (Lipitor) 40 mg PO BEDTIME #90 tab 02/25/21 03/01/21 Rx fluoxetine 20 mg capsule 20 mg PO QID #360 cap 02/25/21 03/01/21 Rx hydromorphone 2 mg tablet 2 mg PO Q4-6H PRN #20 tab 02/27/21 03/01/21 Rx (Dilaudid) tiotropium bromide 2.5 2 puff INHALATION DAILY #4 g 02/28/21 03/01/21 Rx mcg/actuation mist for inhalation (Spiriva Respimat) Narcan Prefilled 4 mg INHALATION PRN PRN 03/01/21 03/01/21 History fluoxetine See Rx Instructions PO QID 03/01/21 03/01/21 History fluticasone propionate 2 inh INHALATION PRN PRN 03/01/21 03/01/21 History Allergies Allergy/AdvReac Type Severity Reaction Status Date / Time zolpidem [From AMBIEN] Allergy Severe [place] Verified 02/18/21 18:39 FLASH BACKS oxycodone Allergy Unknown Verified 02/18/21 18:39 adhesive tape AdvReac Severe Blister Verified 03/01/21 10:32 tapentadol [TAPENTADOL] AdvReac Intermediate DON'T USE Verified 02/18/21 18:39 PLASTIC TAPE - SKIN FIREY RED Review of Systems Review of Systems Narrative: Negative complete ROS unless otherwise noted Exam Vital Signs (past 8 hours): - 07/02/21 10:17 03/01/21 10:34 03/01/21 13:12 Temperature 98.1 F 98.1 F 98.6 F Pulse Rate 98 H 98 H 89 Respiratory Rate 16 18 13 Blood Pressure 149/90 H 149/90 H 119/75 Pulse Oximetry 95 95 96 03/01/21 13:16 03/01/21 13:22 03/01/21 13:27 Temperature Pulse Rate 88 90 89 Respiratory Rate 12 12 12 Blood Pressure 118/78 115/69 117/71 Pulse Oximetry 95 97 97 03/01/21 13:31 03/01/21 13:46 03/01/21 13:50 Temperature Pulse Rate 90 87 87 Respiratory Rate 12 12 12 Blood Pressure 120/64 103/62 106/61 Pulse Oximetry 96 94 94 03/01/21 14:00 03/01/21 14:12 03/01/21 14:25 Temperature 98.2 F Pulse Rate 90 94 H 94 H Respiratory Rate 12 12 18 Blood Pressure 116/62 103/59 L 107/61 Pulse Oximetry 95 94 96 03/01/21 14:55 Temperature 97.2 F L Pulse Rate 93 H Respiratory Rate 16 Blood Pressure 146/72 H Pulse Oximetry 94 Oxygen Delivery Method Nasal Cannula Oxygen Flow Rate 4 Narrative Exam Narrative: General: Alert cooperative male HEENT: Nontraumatic, anicteric, SIMÓN Neck: No lymphadenopathy Lungs: Mild bilateral expiratory rhonchi Cardiac: Regular rhythm Abdomen: Soft, no abdominal mass Extremities: No edema, several sutures on close left ankle wound Neurological: Well oriented, speech normal, affect normal Objective Labs Labs: Laboratory Results - last 24 hr 03/01/21 Unknown SARS-CoV-2 (PCR) Negative Assessment & Plan Assessment & Plan narrative: 1. Chronic hypoxic and hypercapnic respiratory failure -patient is medically stable -continue O2 4 L nasal cannula at rest, CPAP during wake hours as tolerated as well as during sleep -albuterol nebulizer q.i.d. -RT consult 2. PTSD, depression and anxiety -maintain patient's home routine of medications including clonazepam, fluoxetine, and mirtazapine 3. Postop pain management -1 time dose of hydromorphone 4 mg tablet ordered to control acute pain -continue hydromorphone 2 mg q.3 hours as needed per Ortho orders -monitor neurological status and O2 sats
[2021-03-01] MEDS: GABAPENTIN 300 MG CAPSULE 900 MG PO (18:04)
[2021-03-01] MEDS: IPRATROPIUM 0.5 MG/2.5 ML NEB INH ×2 (18:12→21:15)
[2021-03-01] MEDS: ALBUTEROL 2.5 MG/3 ML NEB (ADULT) INH ×2 (18:12→21:15)
[2021-03-01] MEDS: HYDROMORPHONE 2 MG TABLET 4 MG PO (18:34)
[2021-03-01] MEDS: DOCUSATE 100 MG CAPSULE PO (20:24)
[2021-03-01] MEDS: ATORVASTATIN 20 MG TABLET 40 MG PO (20:24)
[2021-03-01] MEDS: clonazePAM 0.5 MG TABLET 4 MG PO (20:24)
[2021-03-01] MEDS: MIRTAZAPINE 15 MG TABLET 30 MG PO (20:25)
[2021-03-01] MEDS: guaiFENesin ER 600 MG TAB PO (20:28)
[2021-03-01] MEDS: MAGNESIUM HYDROXIDE 30 ML UDC PO (20:56)
[2021-03-02 00:08] VITALS: O2SAT 97
[2021-03-02 05:41] VITALS: BP 121/63; PULSE 58; RESP 16; TEMP 36.3; O2SAT 95
[2021-03-02 07:02] LABS: Hematocrit 44.1 % (41-53); Mean Corpuscular HGB Conc 31.9 % (30-36); Mean Corpuscular Hemoglobin 31.2 PG (26-34); Mean Corpuscular Volume 97.8 fL (80-100); Platelet Count 212 X10^3/uL (150-400); Red Blood Cell Count 4.51 X10^6/uL (4.5-5.9); Red Cell Distribution Width 14.7 % (11.6-14.8)
[2021-03-02 08:43] VITALS: PULSE 92; RESP 16; O2SAT 93
[2021-03-02] MEDS: ALBUTEROL 2.5 MG/3 ML NEB (ADULT) INH (08:43)
[2021-03-02] MEDS: IPRATROPIUM 0.5 MG/2.5 ML NEB INH (08:43)
[2021-03-02] MEDS: AMLODIPINE 5 MG TABLET 2.5 MG PO (09:27)
[2021-03-02] MEDS: clonazePAM 0.5 MG TABLET 4 MG PO (09:27)
[2021-03-02] MEDS: ASPIRIN EC 81 MG TABLET PO (09:27)
[2021-03-02] MEDS: guaiFENesin ER 600 MG TAB PO (09:28)
[2021-03-02] MEDS: DOCUSATE 100 MG CAPSULE PO (09:28)
[2021-03-02] MEDS: PANTOPRAZOLE DR 20 MG TABLET PO (09:28)
[2021-03-02] MEDS: FLUoxetine 20 MG CAPSULE 80 MG PO (09:28)
[2021-03-02] MEDS: GABAPENTIN 300 MG CAPSULE 900 MG PO (09:28)
[2021-03-02] MEDS: HYDROMORPHONE 2 MG TABLET PO (09:30)
--- NOTE | 2021-03-02 10:21 | PM.DS.1 ---
History of Present Illness History of Present Illness Date Patient Seen: 03/02/21 Time Patient Seen: 10:22 Chief complaint: OPB Narrative: Status post open reduction internal fixation left radius and ulnar shaft fracture March 01, 2021. Patient states pain is moderate to severe. Currently well controlled with the law did. Denies numbness tingling left upper extremity. After long discussion patient feels safe to be discharged home today. Discharge Providers Provider Discharge Date: 03/02/21 Primary care physician: Vivek Ortiz MD Consults: 03/01/21 10:48 Consult to Respiratory Therapy Evaluate & Treat Comment: Physician Instructions: Evaluate and treat 03/01/21 14:59 Consult to Discharge Planning Routine Comment: Consult to Physician Routine Comment: Consulting Provider: Allen Vivar Reason for consultation: Coronary artery disease, atrial flutter and COPD Has provider been notified: Yes Consult to Respiratory Therapy Evaluate & Treat Comment: Physician Instructions: Evaluate and treat 03/01/21 16:00 Consult to Dietitian, Adult Routine Comment: Reason For Exam: pt states is homebound Discharge provider: Jairon Hinojosa PA-C Summary Hospital Course Discharge Diagnosis: Fracture of left radius and ulnar shaft Hospital Course: Procedure: Open reduction internal fixation of left radius and ulnar shaft fractures. Same procedure as scheduled: Yes Indications: The patient is a 75-year-old gentleman who several weeks ago broke his forearm. He had a prolonged difficulty obtaining follow-up but was seen in my office yesterday and scheduled for surgery today after discussion the risks benefits and alternatives. Risks discussed included but were not limited to: Failure to improve, stiffness, infection, nerve damage, deep venous thrombosis, pulmonary embolism, stroke, myocardial infarction, aspiration pneumonia, permanent paralysis and . Surgeon: Ublado Marin Click Yes if Unassisted: Yes Anesthesia Type: General and Local Operative Notes Findings: transverse fractures of both the radius and ulna in the junction of the mid to distal thirds. The ulnar fracture was comminuted. Reduction was anatomic. Closure Type: primary Specimen(s): none sent Prosthetic devices, grafts, tissues, transplants, or devices: Implants used in this procedure were manufactured by the [employer] and included to 6 hole 3.5 mm DCP plates. There were a total of 12 screws used. Applied: implant(s) Estimated Blood Loss (mL): 50 Blood products transfused: none Tourniquet time (min): 54 Hospitalist was counseled patient. Patient was seen yesterday. Reason for consultation with COPD and chronic respiratory failure. Patient medically stable per hospitalist. Patient seen this morning. Patient progressing as expected. Discharge home today in stable condition. Status at Discharge Cognitive/behavioral status at discharge: at baseline, oriented Functional status at discharge: independent ambulation Overall status at discharge: patient is progressing back to baseline Time Spent with Patient Time spent: Less than 30 minutes Exam Vital Signs (past 8 hours): - 03/02/21 05:41 03/02/21 08:43 Temperature 97.3 F L Pulse Rate 58 L 92 H Respiratory Rate 16 16 Blood Pressure 121/63 Pulse Oximetry 95 93 Fraction of Inspired Oxygen 36 Oxygen Delivery Method Nasal Cannula,CPAP Oxygen Flow Rate 4 Narrative Exam Narrative: Pleasant 75-year-old male resting comfortably in bed no apparent distress. Left forearm and hand is in a splint. Splint is intact. Sensation grossly intact to the entire left hand. Good capillary refill. Left hand is warm and dry. Const General: cooperative and well developed Nutritional Appearance: well nourished Orientation: oriented x3 HENMT Head: normocephalic Resp Effort & Inspection: normal respiratory effort Neuro General: patient alert and patient oriented x3 Cognition: normal cognition Speech: speech normal Objective Labs Result Diagrams: 03/02/21 06:20 Labs: Laboratory Results - last 24 hr 03/02/21 06:20 WBC 12.0 H RBC 4.51 Hgb 14.0 Hct 44.1 MCV 97.8 MCH 31.2 MCHC 31.9 RDW 14.7 Plt Count 212 PFSH Medical History Anxiety Atherosclerotic heart disease of [place] coronary artery without angina pectoris Benign prostatic hyperplasia with lower urinary tract symptoms Cervicalgia Chronic asthma Chronic obstructive pulmonary disease with (acute) exacerbation Depression Essential (primary) hypertension Gastro-esophageal reflux disease without esophagitis Hypoxemia Impaired fasting glucose Lesion of ulnar nerve, 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 Neuropathy Obstructive sleep apnea Other allergic rhinitis Other specified pulmonary heart diseases Polycythemia PTSD (post-traumatic stress disorder) Surgical History History of heart artery stent History of hernia surgery History of mandibular surgery Family History Mother Stroke Sister Stroke Father Suicide Social History household members: spouse Smoking Status: Former smoker alcohol intake: current Discharge Assessment & Plan Assessment and Plan Assessment: Patient progressing as expected status post ORIF left radius and ulnar shaft fractures Plan of Treatment: Continue splint. Patient will be fitted with a sling. Discharge home today in stable condition. Follow-up with [facility] in 2 weeks. Discharge Plan Discharge Plan Patient Disposition: Home Discharge orders & Medications Discharge Orders: Discharge (Order); Ordered 03/02/21 Ordered By: Jairon Hinojosa Prescriptions: New hydromorphone 2 mg Tablet 2 mg PO Q3H PRN (Reason: Pain, Severe (7-10)) Qty: 40 RF: 0 Continued calcium carbonate 500 MG tablet 1 tab PO BID Qty: 0 RF: 0 mirtazapine [Remeron] 30 MG tablet 30 mg PO HS Qty: 0 RF: 0 CPAP: CPAP/PAP Full Face Mask HS Qty: 0 RF: 0 Spiriva Respimat 2.5 mcg/actuation mist 2 puff inhalation DAILY Qty: 4 RF: 3 Narcan Prefilled 4 mg inhalation PRN PRN (Reason: overdose) RF: 0 fluticasone propionate 2 inh inhalation PRN PRN (Reason: Congestion) RF: 0 fluoxetine capsule See Rx Instructions mg PO QID RF: 0 alfuzosin 10 mg tablet extended release 24 hr 10 mg PO DAILY Qty: 90 RF: 0 atorvastatin [Lipitor] 40 mg tablet 40 mg PO BEDTIME Qty: 90 RF: 0 albuterol sulfate 2.5 mg /3 mL (0.083 %) solution for nebulization 2.5 mg inhalation BID Qty: 90 RF: 0 amlodipine 2.5 mg tablet 2.5 mg PO DAILY Qty: 90 RF: 0 CLONAZEPAM tablet See Rx Instructions mg PO QID Qty: 40 RF: 0 fluoxetine 20 mg capsule 20 mg PO QID Qty: 360 RF: 1 multivitamin with minerals [Multiple Vitamin-Minerals] Tablet 1 tab PO DAILY RF: 0 Eye Allergy Relief 0.13214-9.315 % drops 1 drp EYE-BOTH QID PRN (Reason: allergy symptoms) RF: 0 Serevent Diskus 50 mcg/dose blister with device 1 inh inhalation Q12H RF: 0 nitroglycerin 0.4 mg tablet, sublingual 0.4 mg sublingual Q5-15M PRN (Reason: Chest Pain) RF: 0 omeprazole 20 mg capsule,delayed release(DR/EC) 20 mg PO DAILY RF: 0 guaifenesin [Mucinex] 600 mg tablet extended release 12hr 600 mg PO BID RF: 0 aspirin [Adult Aspirin Regimen] 81 mg tablet,delayed release (DR/EC) 81 mg PO DAILY RF: 0 GABAPENTIN 900 mg capsule 900 mg PO QID RF: 0 Discontinued hydromorphone [Dilaudid] 2 mg tablet 2 mg PO Q4-6H PRN (Reason: pain) Qty: 20 RF: 0 Follow up/Referrals: Vivek Ortiz MD [Primary Care Provider] - Ubaldo Marin MD [Physician] - (2 weeks) Diet/Activity/Treatments Diet: Diet as Tolerated Activity: No lifting Skin/Wound/Dressing Care Report to your healthcare provider any signs of infection, such as:: chills, fever, increased pain, unusual drainage and unusual redness Dressing: Keep clean and dry Visit Report/Discharge Packet Instructions: DI for Open Reduction Internal Fixation Surgery Stand Alone Forms: Surgery Discharge Discharge Data Primary Care Provider: Vivek Ortiz Attending Provider: Ubaldo Marin Quality VTE Deep Vein Thrombosis/Pulmonary Embolism Present on Admission: No
--- NOTE | 2021-03-02 10:38 | CM.DANOTE ---
DCP: Case received, EMR reviewed and met with patient. , Arabella, was also at bedside. Introduced self and role. Was able to obtain information from patient regarding his baseline activity status prior to hospitalization. DCP assessment completed with information currently available. Patient is a 75 year old male who admitted yesterday morning to the care of the orthopedic team. PCP: Dr. Ortiz. Payer: confirmed: Medicare/payByMobile. Patient came to the hospital via private vehicle for a surgical procedure. He had elective ORIF of his left radius. Patient had sustained a fall at home and ended up with a displaced fracture of left shaft. Patient also has some medical co-morbidities, COPD, and is oxygen dependent at 4L, as well as he uses a CPAP at home. Met with patient and , who was at bedside. He and his spouse reside in [facility]. He has a cane for home use. He stated that he still can drive at times if necessary. He is planning on going home with . P: Patient has discharge orders for home today. Delia Abdi RN/[employer]
--- NOTE | 2021-03-02 11:52 | PC.NURSE ---
Patient A/O x 3. C/o pain, PO Dilaudid administered at 0930. Patient showered. Lungs CTA. Patient and , Arabella, given discharge instructions regarding medication, pain control, f/u appointment in 2 weeks and activity. Use of sling and dressing care were also discussed. Patient and verbalized understanding. is eager to leave, brought O2 tank and wheelchair upon return from pharmacy. Patient moved to wheelchair, IV removed. had previously taken all patients belongings. Patient discharged in gown, sling secure, O2 set at 5 per patient request. Given Priority Boarding for [employer] [facility].
== END 2021-03-02 11:40 | disposition home or self-care (01) ==
LOC: OR 07:55 → AC 07:56
PROVIDERS: Admitting Provider Orthopaedic Surgery; Family Provider Family Medicine; PCP Family Medicine; Referring Provider Orthopaedic Surgery; Visit Provider Orthopaedic Surgery
PROC: (CPT 25575; principal; 2021-03-01 11:15)
DX: S52.322A Displaced transverse fracture of shaft of left radius, initial encounter for closed fracture (principal); S52.222A Displaced transverse fracture of shaft of left ulna, initial encounter for closed fracture; I25.10 Atherosclerotic heart disease of native coronary artery without angina pectoris; G47.33 Obstructive sleep apnea (adult) (pediatric); F43.10 Post-traumatic stress disorder, unspecified; K21.9 Gastro-esophageal reflux disease without esophagitis; Z99.81 Dependence on supplemental oxygen; I10 Essential (primary) hypertension; I48.92 Unspecified atrial flutter; E66.9 Obesity, unspecified; Z68.37 Body mass index [BMI] 37.0-37.9, adult; Z20.822 Contact with and (suspected) exposure to COVID-19
CPT/HCPCS: 25575; 73090; 85027; 87635; 94640; 94760; C9803; G0378; J0131; J0330; J0690; J1100; J1170; J2405; J2704; J3010; J7613

== ENCOUNTER → 2021-03-21 08:53 | Outpatient (CLI) | payer MEDICARE, OTHER, SELFPAY ==
[2021-03-01 15:49] VITALS: BMI 37.6
[2021-03-21 19:54] LABS: Alanine Aminotransferase 34 IU/L (<50); Albumin 3.2 g/dL (3.5-5.0); Albumin Globulin Ratio 1.2 (1.0-2.8); Alkaline Phosphatase 223 U/L (38-126); Aspartate Aminotransferase 44 IU/L (17-59); BUN Creatinine Ratio 21.3 (6-22); Bilirubin Total 0.6 mg/dL (0.2-1.3); Blood Urea Nitrogen 17 mg/dL (9-20); Carbon Dioxide 29 mmol/L (22-32); Chloride 103 mmol/L (98-107); Cholesterol 169 mg/dL (140-199); Estimated Glomerular Filt Rate > 60.0 mL/min (>60); Globulin 2.6 g/dL (1.7-4.1); Glucose 161 mg/dL (80-110); HDL Cholesterol 47 mg/dL (40-60); HEMOLYSIS 18 (0-50); LDL Cholesterol Calculated 81 mg/dL (<100); Potassium 3.7 mmol/L (3.4-5.1); Sodium 137 mmol/L (137-145); Total Protein 5.8 g/dL (6.3-8.2); Triglycerides 206 mg/dL (35-150)
[2021-03-21 20:08] LABS: Hemoglobin A1C% w Est Avg Glu 7.1 % (4.0-6.0)
[2021-03-21 20:10] LABS: Add Manual Diff / Slide Review NO; Basophils Absolute Auto 100 /uL (0-100); Eosinophils Absolute Auto 200 /uL (0-450); Eosinophils Percent Auto 2.7 % (2-4); Hematocrit 45.1 % (41-53); Hemoglobin 14.5 g/dL (13.5-17.5); Lymphocytes Absolute Auto 3100 /uL (1100-4500); Lymphocytes Percent Auto 48.7 % (25-40); Mean Corpuscular HGB Conc 32.1 % (30-36); Mean Corpuscular Hemoglobin 30.8 PG (26-34); Mean Corpuscular Volume 96.1 fL (80-100); Monocytes Absolute Auto 400 /uL (0-900); Monocytes Percent Auto 6.9 % (3-14); Neutrophils Absolute Auto 2600 /uL (1500-7000); Neutrophils Percent Auto 40.7 % (50-75); Platelet Count 157 X10^3/uL (150-400); Red Blood Cell Count 4.69 X10^6/uL (4.5-5.9); White Blood Cell Count 6.4 X10^3/uL (4.5-11.0)
== END ==
PROVIDERS: Family Provider Family Medicine; PCP Family Medicine; Referring Provider Family Medicine; Visit Provider Family Medicine
DX: D75.1 Secondary polycythemia (principal); R73.01 Impaired fasting glucose; E78.5 Hyperlipidemia, unspecified; I10 Essential (primary) hypertension
CPT/HCPCS: 80053; 80061; 83036; 85025

== ENCOUNTER 2022-11-19 11:41 | Emergency (ER) | payer OTHER, SELFPAY ==
[2021-03-01 15:49] VITALS: BMI 37.6
[2022-11-19] VITALS (10 sets, daily range): BP systolic 170–172; BP diastolic 77–82; PULSE 50–85; RESP 18–38; TEMP 36.3; O2SAT 93–98; BMI 34.8
--- NOTE | 2022-11-19 11:47 | DI.CT.S_ITS ---
PROCEDURE: CT ABDOMEN PELVIS W CON INDICATIONS: Generalized lower abdominal pain TECHNIQUE: After the administration of intravenous contrast, axial sections acquired from the lung bases to the pubic symphysis. Coronal and sagittal reformats were performed. For radiation dose reduction, the following was used: automated exposure control, adjustment of mA and/or kV according to patient size. COMPARISON: [facility], CT, CT ABDOMEN PELVIS W CON, 02/18/2021, 16:54. FINDINGS: Image quality: Good Lower chest: Focus of opacity seen in the right lower lung (5/12). Superimposed atelectasis/scarring. No hiatal hernia. Coronary calcifications. Solid organs: Liver is unremarkable. Gallbladder is unremarkable. No pathologic dilation of the biliary tree or pancreatic duct. Mild pancreatic fatty atrophy at the head. No splenomegaly. No adrenal nodules. Bosniak 1 and 2 renal lesions are present, for which no dedicated followup is necessary per 2019 proposed guidelines. 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 No hydronephrosis. Vessels and lymph nodes: The main portal vein is patent. Moderate atherosclerotic disease of the aorta and its branches. Bowel and peritoneum: No evidence of small bowel obstruction. Colonic diverticulosis. N no high-grade inflammatory changes. Mild wall thickening of the sigmoid and rectum. The appendix is normal. Body wall: Left fat containing inguinal hernia. Pelvis: Bladder is unremarkable. Prostate is not well evaluated on this study. Bones: No acute or aggressive appearing osseous finding. Degenerative changes are present. Increased height loss of the superior endplate of L1, age-indeterminate. IMPRESSION: No acute abdominopelvic pathology. Mild wall thickening of the sigmoid, and rectum may represent mild inflammation and chronic diverticular disease. Consider correlation with age-appropriate colonoscopy results. Partially seen in the lung, in the right lower lobe, possibly infectious or inflammatory. Lung series image 12. Consider surveillance imaging in 3 months. Age-indeterminate superior endplate deformity of L1, slightly increased compared to 2020. Other nonacute/incidental findings described above. Dictated by: Olivier Greenberg M.D. on 11/19/2022 at 13:31 Approved by: Olivier Greenberg M.D. on 11/19/2022 at 13:38
--- NOTE | 2022-11-19 11:48 | ED_ITS ---
HPI - General Adult General Chief complaint: Abdominal Pain Stated complaint: tremors, N&V Time Seen by Provider: 11/19/22 11:46 Source: patient Mode of arrival: EMS Limitations: no limitations History of Present Illness HPI narrative: Patient is a 77-year-old male who is brought in by EMS for evaluation of 2 days of what he describes as tremors in his abdomen and also in his chest. He also describes nausea. Has not been able to eat or drink very much. He has had some loose stools/diarrhea as well. No urinary symptoms. No skin rashes. No fevers. Has not tried anything for symptoms prior to arrival. Related Data Home Medications Medication Instructions Recorded Confirmed CPAP: CPAP/PAP Full Face Mask HS ##0 01/08/17 Narcan Prefilled 4 mg inhalation PRN PRN overdose 03/01/21 03/01/21 mirtazapine 30 mg tablet 30 mg PO DAILY 10/21/21 10/21/21 Previous Rx's Medication Instructions Recorded hydromorphone 2 mg tablet 2 mg PO Q3H PRN Pain, Severe 03/02/21 (7-10) #40 tabs alfuzosin 10 mg tablet,extended 10 mg PO DAILY #90 tabs 06/18/21 release 24 hr atorvastatin 40 mg tablet (Lipitor) 40 mg PO BEDTIME #90 tabs 06/18/21 amlodipine 2.5 mg tablet See Rx Instructions .Route 06/24/21 .COMPLEX #90 tabs fluoxetine 20 mg capsule 20 mg PO QID #360 caps 06/24/21 fluticasone propionate 110 2 puff inhalation BID #3 ea 06/24/21 mcg/actuation HFA aerosol inhaler naphazoline 0.00340 %-pheniramine 1 drp EYE-BOTH QID PRN allergy 06/24/21 0.315 % eye drops (Eye Allergy symptoms #15 mL Relief (naphazoline-pheniramine)) nitroglycerin 0.4 mg sublingual 0.4 mg sublingual Q5-15M PRN Chest 06/24/21 tablet Pain #20 tabs amoxicillin 875 mg-potassium 1 tab PO BID #20 tabs 10/21/21 clavulanate 125 mg tablet (Augmentin) tiotropium bromide 2.5 2 puff inhalation DAILY #12 grams 01/21/22 mcg/actuation mist for inhalation (Spiriva Respimat) gabapentin 300 mg capsule 900 mg PO TID #540 caps 02/17/22 multivitamin with minerals 1 tab PO DAILY #90 tabs 02/17/22 (Multiple Vitamin-Minerals tablet) omeprazole 20 mg capsule,delayed 20 mg PO DAILY #90 caps 02/17/22 release aspirin 81 mg tablet,delayed 81 mg PO DAILY #90 tabs 02/18/22 release (Adult Aspirin Regimen) guaifenesin 600 mg tablet, 600 mg PO BID #180 tabs 02/18/22 extended release 12 hr (Mucinex) calcium carbonate 500 mg calcium 500 mg PO BID #180 tabs 02/21/22 (1,250 mg) tablet olodaterol 2.5 mcg/actuation mist 2 inh inhalation Q24H #3 ea 02/24/22 for inhalation (Striverdi Respimat) nirmatrelvir 300 mg (150 mg See Rx Instructions PO .COMPLEX 03/12/22 x2)-ritonavir 100 mg tablet,dose #30 tabs pack(EUA) (Paxlovid) albuterol sulfate 90 mcg/actuation 2 puff inhalation Q4-6H PRN 03/16/22 aerosol inhaler shortness of breath or wheezing #3 ea clonazepam 2 mg tablet 2 mg PO TID #135 tabs 03/16/22 Allergies Allergy/AdvReac Type Severity Reaction Status Date / Time zolpidem [From AMBIEN] Allergy Severe [place] Verified 02/18/21 18:39 FLASH BACKS oxycodone Allergy Unknown Verified 02/18/21 18:39 adhesive tape AdvReac Severe Blister Verified 03/01/21 10:32 tapentadol [TAPENTADOL] AdvReac Intermediate DON'T USE Verified 02/18/21 18:39 PLASTIC TAPE - SKIN FIREY RED Review of Systems Constitutional Constitutional: Reports system reviewed and no additional complaints, except as documented Gastrointestinal Gastrointestinal: Reports system reviewed and no additional complaints, except as documented Genitourinary Genitourinary: Reports system reviewed and no additional complaints, except as documented Integumentary/Breasts Skin/Breast: Reports system reviewed and no additional complaints, except as documented Psychiatric Psychiatric: Reports system reviewed and no additional complaints, except as documented Patient History Medical History Anxiety Atherosclerotic heart disease of [place] coronary artery without angina pectoris Benign prostatic hyperplasia with lower urinary tract symptoms Cervicalgia Chronic asthma Chronic obstructive pulmonary disease with (acute) exacerbation Depression Essential (primary) hypertension Gastro-esophageal reflux disease without esophagitis Hypoxemia Impaired fasting glucose Lesion of ulnar nerve, 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 Neuropathy Obstructive sleep apnea Other allergic rhinitis Other specified pulmonary heart diseases Polycythemia PTSD (post-traumatic stress disorder) Surgical History History of heart artery stent History of hernia surgery History of mandibular surgery Family History Mother Stroke Sister Stroke Father Suicide Social History household members: spouse Smoking Status: Former smoker alcohol intake: current Smoking Status: Former smoker alcohol intake frequency: holidays/special occasions only Substance Use Type: marijuana Exam Initial Vital Signs Initial Vital Signs: Vital Signs Temperature 97.3 F L 11/19/22 11:41 Pulse Rate 85 11/19/22 11:41 Respiratory Rate 18 11/19/22 11:41 Blood Pressure 172/82 H 11/19/22 11:41 Pulse Oximetry 96 11/19/22 11:41 Oxygen Delivery Method Room Air 11/19/22 11:41 Const General: cooperative and No ill appearing HENMT Head: normal to inspection and normocephalic Resp Effort & Inspection: normal respiratory effort Auscultation: clear to auscultation bilaterally Cardio Rate: regular rate Rhythm: regular rhythm GI Inspection: normal to inspection Palpation: soft, No firm, No guarding and tender (Lower abdomen) Skin General: no rashes or lesions noted Neuro General: patient alert, patient awake and moves all extremities Extrem General: normal to inspection and capillary refill normal Course Orders Ordered: ED Orders 11/19/22 11:47 CT abdomen pelvis w con Stat 11/19/22 11:56 Complete Blood Count AUTO DIFF Stat Comprehensive Metabolic Panel Stat Lipase Stat 11/19/22 13:12 EKG-12 Lead Stat 11/19/22 13:44 Urine Culture Stat Urine Microscopic Stat Discontinued Medications Sodium Chloride (Normal Saline 0.9%) 1,000 mls @ 1,000 mls/hr IV BOLUS ONE Stop: 11/19/22 12:46 Last Infusion: 11/19/22 13:10 Dose: 0 mls/hr Documented By: Admin: 11/19/22 11:59 Dose: 1,000 mls/hr Documented By: JC Vital Signs Vital signs: Vital Signs - 8 hr 11/19/22 11:41 11/19/22 13:19 11/19/22 13:26 Temperature 97.3 F L Pulse Rate 85 75 50 L Respiratory Rate 18 18 Blood Pressure 172/82 H 170/77 H Pulse Oximetry 96 93 98 Oxygen Delivery Method Room Air Nasal Cannula Nasal Cannula Oxygen Flow Rate 2 2 11/19/22 13:30 11/19/22 14:00 11/19/22 14:30 Temperature Pulse Rate 62 50 L 59 L Respiratory Rate 18 19 Blood Pressure Pulse Oximetry 97 93 95 Oxygen Delivery Method Nasal Cannula Oxygen Flow Rate 2 Medical Decision Making Lab Data Lab results reviewed: Yes I reviewed the patient's lab results. 11/19/22 11:56 11/19/22 11:56 Labs: Lab Results 11/19/22 11/19/22 11/19/22 Range/Units 11:56 11:56 13:44 WBC 8.5 (4.5-11.0) X10^3/uL RBC 4.71 (4.5-5.9) X10^6/uL Hgb 14.1 (13.5-17.5) g/dL Hct 43.5 (41-53) % MCV 92.2 (80-100) fL MCH 29.8 (26-34) PG MCHC 32.4 (30-36) % RDW 15.1 H (11.6-14.8) % Plt Count 185 (150-400) X10^3/uL Neut % (Auto) 70.3 (50-75) % Lymph % (Auto) 23.0 L (25-40) % [place] % (Auto) 5.0 (3-14) % Eos % (Auto) 1.2 L (2-4) % Baso % (Auto) 0.5 (0-2) % Neut # (Auto) 5900 (8981-1878) /uL Lymph # (Auto) 1900 (2829-6245) /uL [place] # (Auto) 400 (0-900) /uL Eos # (Auto) 100 (0-450) /uL Baso # (Auto) 0 (0-100) /uL Sodium 137 (137-145) mmol/L Potassium 3.7 (3.4-5.1) mmol/L Chloride 102 (98-107) mmol/L Carbon Dioxide 24 (22-32) mmol/L BUN 16 (9-20) mg/dL Creatinine 0.71 (0.66-1.25) mg/dL Estimated GFR > 60 (>60) mL/min BUN/Creatinine Ratio 22.5 H (6-22) Glucose 276 H (80-110) mg/dL Calcium 9.3 (8.4-10.2) mg/dL Total Bilirubin 1.0 (0.2-1.3) mg/dL AST 38 (17-59) IU/L ALT 32 (<50) IU/L Alkaline Phosphatase 119 (38-126) U/L Total Protein 7.3 (6.3-8.2) g/dL Albumin 4.1 (3.5-5.0) g/dL Globulin 3.2 (1.7-4.1) g/dL Albumin/Globulin Ratio 1.3 (1.0-2.8) Lipase 155 (23-300) U/L Urine RBC None seen (0-5/HPF) Urine WBC None seen (0-5/HPF) Ur Squamous Epith Cells None seen (0-5/HPF) Amorphous Sediment 2+ Urine Bacteria Moderate (10-30) H (None) Urine Dip Bedside Urine Glucose 100 mg/dl Bedside Urine Bilirubin - Negative Bedside Urine Ketone +/- 5 Urine Specific [place] 1.010 Bedside Urine Occult Blood - Negative Bedside Urine pH 8.5 Bedside Urine Protein - Negative Bedside Urine Urobilinogen - Negative Bedside Urine Nitrite - Negative Bedside Urine Leukocytes - Negative Esterase Point of care testing: Urine Dip Bedside Urine Glucose 100 mg/dl Bedside Urine Bilirubin - Negative Bedside Urine Ketone +/- 5 Urine Specific [place] 1.010 Bedside Urine Occult Blood - Negative Bedside Urine pH 8.5 Bedside Urine Protein - Negative Bedside Urine Urobilinogen - Negative Bedside Urine Nitrite - Negative Bedside Urine Leukocytes - Negative Esterase Imaging Data CT scan - abdomen/pelvis: Radiologist's Impression: PROCEDURE:? CT ABDOMEN PELVIS W CON ? INDICATIONS:? Generalized lower abdominal pain ? TECHNIQUE:? After the administration of intravenous contrast, axial sections acquired from the lung bases to the pubic symphysis.? Coronal and sagittal reformats were performed.? For radiation dose reduction, the following was used:? automated exposure control, adjustment of mA and/or kV according to patient size.? ? COMPARISON:? [facility], CT, CT ABDOMEN PELVIS W CON, 02/18/2021, 16:54. ? FINDINGS:? Image quality:? Good ? Lower chest:? Focus of opacity seen in the right lower lung (01/09).? Superimposed atelectasis/scarring.? No hiatal hernia.? Coronary calcifications. ? Solid organs:? Liver is unremarkable.? Gallbladder is unremarkable.? No pathologic dilation of the biliary tree or pancreatic duct.? Mild pancreatic fatty atrophy at the head.? No splenomegaly.? No adrenal nodules.? Bosniak 1 and 2 renal lesions are present, for which no dedicated followup is necessary per 2019 proposed guidelines.? S uspected left upper pole AML again seen.? No hydronephrosis.? ? Vessels and lymph nodes:? The main portal vein is patent.? Moderate atherosclerotic disease of the aorta and its branches. ? Bowel and peritoneum:? No evidence of small bowel obstruction.? Colonic diverticulosis.? N no high-grade inflammatory changes.? Mild wall thickening of the sigmoid and rectum.? The appendix is normal. ? Body wall:? Left fat containing inguinal hernia. ? Pelvis:? Bladder is unremarkable.? Prostate is not well evaluated on this study. ? Bones:? No acute or aggressive appearing osseous finding.? Degenerative changes are present.? Increased height loss of the superior endplate of L1, age- indeterminate. ? IMPRESSION:? No acute abdominopelvic pathology.? Mild wall thickening of the sigmoid, and rectum may represent mild inflammation and chronic diverticular disease.? Consider correlation with age-appropriate colonoscopy results. ? Partially seen in the lung, in the right lower lobe, possibly infectious or inflammatory. ?Lung series image 12. Consider surveillance imaging in 3 months. ? Age-indeterminate superior endplate deformity of L1, slightly increased compared to 2020. ? ? Other nonacute/incidental findings described above.? ECG Data Attestation: I personally reviewed and interpreted this ECG as follows: Interpretation: Sinus bradycardia Ventricular rate of 57 Occasional PAC Normal QRS Normal axis No ST T wave changes MDM Narrative Medical decision making narrative: Patient has had no shaking here in the ER. His CT scan shows no acute surgical pathology. Labs are unremarkable. There is no indication for antibiotics. No indication for admission to the hospital. Patient states he does not need any nausea medication. Informed him that he needed to talk with his primary doctor about the issues he is having with his benzodiazepines. Apparently his primary doctor has refused to refill any of his medicines. I will not refill them out of the emergency department here. He was given return precautions. Discharge Plan Departure Patient Disposition: Home Clinical Impression: Occasional tremors, Abdominal pain Instructions: DI for Abdominal Pain-Adult Activity Restrictions/Additional Instructions: Your labs and CT scan today do not show any acute issues that require any surgery or any antibiotics. The issue that you were having with your medication does need to be clarified with your primary doctor. We are unable to refill any of those medications here in the emergency department. I recommend that you contact your primary doctor for a follow-up. Prescriptions: No Action CPAP: CPAP/PAP Full Face Mask HS Qty: 0 atorvastatin [Lipitor] 40 mg tablet 40 mg PO BEDTIME Qty: 90 3RF alfuzosin 10 mg tablet extended release 24 hr 10 mg PO DAILY Qty: 90 3RF Rx Instructions: administer after the same meal each day fluticasone propionate 110 mcg/actuation HFA aerosol inhaler 2 puff inhalation BID Qty: 3 1RF Eye Allergy Relief 0.90235-7.315 % drops 1 drp EYE-BOTH QID PRN (Reason: allergy symptoms) Qty: 15 5RF Rx Instructions: Place 1 drop into each four times daily as needed for itching nitroglycerin 0.4 mg tablet, sublingual 0.4 mg sublingual Q5-15M PRN (Reason: Chest Pain) Qty: 20 0RF Rx Instructions: do not exceed 3 doses per episode fluoxetine 20 mg capsule 20 mg PO QID Qty: 360 3RF Rx Instructions: administer in the morning and at noon/midday amlodipine 2.5 mg tablet See Rx Instructions .ROUTE .COMPLEX Qty: 90 1RF Dose Instruction: TAKE ONE TABLET BY MOUTH EVERY DAY Rx Instructions: TAKE ONE TABLET BY MOUTH EVERY DAY Spiriva Respimat 2.5 mcg/actuation mist 2 puff inhalation DAILY Qty: 12 3RF omeprazole 20 mg capsule,delayed release(DR/EC) 20 mg PO DAILY Qty: 90 3RF Multiple Vitamin-Minerals Tablet 1 tab PO DAILY Qty: 90 3RF gabapentin 300 mg capsule 900 mg PO TID Qty: 540 3RF guaifenesin [Mucinex] 600 mg tablet extended release 12hr 600 mg PO BID Qty: 180 3RF aspirin [Adult Aspirin Regimen] 81 mg tablet,delayed release (DR/EC) 81 mg PO DAILY Qty: 90 3RF calcium carbonate 500 mg calcium (1,250 mg) tablet 500 mg PO BID Qty: 180 3RF Striverdi Respimat 2.5 mcg/actuation mist 2 inh inhalation Q24H Qty: 3 4RF Paxlovid (EUA) 150 mg x 2- 100 mg tablet See Rx Instructions PO .COMPLEX Qty: 30 0RF Rx Instructions: take TWO 150 mg tablets of nirmatrelvir with ONE 100 mg tablet of ritonavir twice daily for 5 days PO albuterol sulfate 90 mcg/actuation HFA aerosol inhaler 2 puff inhalation Q4-6H PRN (Reason: shortness of breath or wheezing) Qty: 3 3RF clonazepam 2 mg tablet 2 mg PO TID Qty: 135 0RF Rx Instructions: 1/2 to 1 by mouth TID Narcan Prefilled 4 mg inhalation PRN PRN (Reason: overdose) Patient Comments: has not used yet hydromorphone 2 mg Tablet 2 mg PO Q3H PRN (Reason: Pain, Severe (7-10)) Qty: 40 0RF mirtazapine 30 mg tablet 30 mg PO DAILY amoxicillin-pot clavulanate [Augmentin] 875-125 mg tablet 1 tab PO BID Qty: 20 0RF Referrals: Vivek Ortiz MD [Primary Care Provider] - Stand Alone Forms: Patient Portal/API
[2022-11-19] MEDS: SODIUM CHLORIDE 0.9% 1,000 ML 1000 ML IV (11:59)
--- NOTE | 2022-11-19 12:38 | PC.NURSE ---
Pts O2 87 %RA,I asked him if he was on oxygen at home which he replied yes all the time Pt placed on 4L nc O2,Dr Hu made aware.
[2022-11-19 12:39] LABS: Add Manual Diff / Slide Review NO; Basophils Absolute Auto 0 /uL (0-100); Basophils Percent Auto 0.5 % (0-2); Eosinophils Absolute Auto 100 /uL (0-450); Eosinophils Percent Auto 1.2 % (2-4); Hematocrit 43.5 % (41-53); Hemoglobin 14.1 g/dL (13.5-17.5); Lymphocytes Absolute Auto 1900 /uL (1100-4500); Mean Corpuscular HGB Conc 32.4 % (30-36); Mean Corpuscular Hemoglobin 29.8 PG (26-34); Mean Corpuscular Volume 92.2 fL (80-100); Monocytes Absolute Auto 400 /uL (0-900); Neutrophils Absolute Auto 5900 /uL (1500-7000); Neutrophils Percent Auto 70.3 % (50-75); Platelet Count 185 X10^3/uL (150-400); Red Blood Cell Count 4.71 X10^6/uL (4.5-5.9); Red Cell Distribution Width 15.1 % (11.6-14.8); White Blood Cell Count 8.5 X10^3/uL (4.5-11.0)
[2022-11-19 12:44] LABS: Alanine Aminotransferase 32 IU/L (<50); Albumin 4.1 g/dL (3.5-5.0); Albumin Globulin Ratio 1.3 (1.0-2.8); Alkaline Phosphatase 119 U/L (38-126); Aspartate Aminotransferase 38 IU/L (17-59); BUN Creatinine Ratio 22.5 (6-22); Blood Urea Nitrogen 16 mg/dL (9-20); Calcium 9.3 mg/dL (8.4-10.2); Carbon Dioxide 24 mmol/L (22-32); Chloride 102 mmol/L (98-107); Estimated Glomerular Filt Rate > 60 mL/min (>60); Globulin 3.2 g/dL (1.7-4.1); Glucose 276 mg/dL (80-110); HEMOLYSIS < 15 (0-50); Lipase 155 U/L (23-300); Potassium 3.7 mmol/L (3.4-5.1); Sodium 137 mmol/L (137-145); Total Protein 7.3 g/dL (6.3-8.2)
[2022-11-19 14:48] LABS: Amorphous Sediment Urine 2+; Bacteria Urine Moderate (10-30); RBC Urine None Seen (0-5/HPF); Squamous Epithelial Cell Urine None Seen (0-5/HPF); WBC Urine None Seen (0-5/HPF)
--- NOTE | 2022-11-19 16:55 | PC.NURSE ---
Patient discharged home with home oxygen tank with his daughter. This RN confirmed that the oxygen tank was full and placed the nasal cannula on the patient.
== END 2022-11-19 16:57 | disposition home or self-care (01) ==
PROVIDERS: Emergency Provider Emergency Medicine; Family Provider Family Medicine; PCP Family Medicine
DX: R25.1 Tremor, unspecified (principal); R10.84 Generalized abdominal pain
CPT/HCPCS: 36415; 74177; 80053; 81003; 81015; 83690; 85025; 87086; 93005; 93010; 96360; 99284; 99285; Q9967

== ENCOUNTER → 2024-03-14 13:48 | Outpatient (CLI) | payer OTHER, MEDICARE, SELFPAY ==
[2021-03-01 15:49] VITALS: BMI 37.6
[2024-03-14 15:23] LABS: Add Manual Diff / Slide Review NO; Basophils Absolute Auto 100 /uL (0-100); Basophils Percent Auto 0.7 % (0-2); Eosinophils Absolute Auto 500 /uL (0-450); Eosinophils Percent Auto 5.9 % (2-4); Hemoglobin 14.2 g/dL (13.5-17.5); Lymphocytes Absolute Auto 2500 /uL (1100-4500); Lymphocytes Percent Auto 30.1 % (25-40); Mean Corpuscular HGB Conc 32.9 % (30-36); Mean Corpuscular Volume 94.3 fL (80-100); Monocytes Absolute Auto 600 /uL (0-900); Monocytes Percent Auto 7.4 % (3-14); Neutrophils Absolute Auto 4700 /uL (1500-7000); Neutrophils Percent Auto 55.9 % (50-75); Platelet Count 210 X10^3/uL (150-400); Red Blood Cell Count 4.56 X10^6/uL (4.5-5.9); Red Cell Distribution Width 14.7 % (11.6-14.8); White Blood Cell Count 8.4 X10^3/uL (4.5-11.0)
[2024-03-14 15:34] LABS: Hemoglobin A1C% w Est Avg Glu 5.4 % (4.0-6.0)
[2024-03-14 15:54] LABS: Alanine Aminotransferase 21 IU/L (<50); Albumin 4.2 g/dL (3.5-5.0); Albumin Globulin Ratio 1.4 (1.0-2.8); Alkaline Phosphatase 84 U/L (38-126); Aspartate Aminotransferase 32 IU/L (17-59); BUN Creatinine Ratio 23.7 (6-22); Bilirubin Total 0.7 mg/dL (0.2-1.3); Blood Urea Nitrogen 22 mg/dL (9-20); Calcium 9.8 mg/dL (8.4-10.2); Carbon Dioxide 27 mmol/L (22-32); Chloride 102 mmol/L (98-107); Cholesterol 151 mg/dL (140-199); Estimated Glomerular Filt Rate > 60 mL/min (>60); Glucose 122 mg/dL (80-110); HDL Cholesterol 87 mg/dL (40-60); HEMOLYSIS < 15 (0-50); LDL Cholesterol Calculated 48 mg/dL (<100); Sodium 136 mmol/L (137-145); Total Protein 7.2 g/dL (6.3-8.2); Triglycerides 79 mg/dL (35-150)
[2024-03-14 16:07] LABS: Potassium 5.4 mmol/L (3.4-5.1)
== END ==
PROVIDERS: Family Provider Family Medicine; PCP Family Medicine; Referring Provider Family Medicine; Visit Provider Family Medicine
DX: I11.0 Hypertensive heart disease with heart failure (principal); I50.9 Heart failure, unspecified; F32.9 Major depressive disorder, single episode, unspecified; F41.9 Anxiety disorder, unspecified; D75.1 Secondary polycythemia; R19.7 Diarrhea, unspecified
CPT/HCPCS: 36415; 80053; 80061; 83036; 85025

== ENCOUNTER 2024-07-26 10:02 | Emergency (ER) | payer OTHER, SELFPAY ==
[2021-03-01 15:49] VITALS: BMI 37.6
[2024-07-26 10:11] VITALS: BP 141/90; PULSE 108; RESP 14; TEMP 36.1; O2SAT 97; BMI 27.8
[2024-07-26] MEDS: ACETAMINOPHEN 325 MG TABLET 650 MG PO (10:34)
[2024-07-26] MEDS: IBUPROFEN 400 MG TABLET PO (10:35)
[2024-07-26 12:20] VITALS: BP 146/85; PULSE 107; RESP 20; O2SAT 97
--- NOTE | 2024-07-26 14:07 | ED.NECK ---
HPI - Neck Pain/Injury <Savannah Gonzalez PA-C - Last Filed: 07/26/24 16:34> General Chief Complaint: Neck Pain/Injury Stated Complaint: neck pain Time Seen by Provider: 07/26/24 11:14 Mode of arrival: EMS History of Present Illness HPI Narrative: 79-year-old male with past medical history COPD, hypertension, hyperlipidemia, CHF, anxiety, depression, GERD, BPH presents to the ED with 4 days of neck pain. Patient states that his neck pain is worse when sleeping, he has had a hard time sleeping for the last 4 nights. No injury. No numbness, tingling, weakness. No fever, chills. Related Data Home Medications Medication Instructions Recorded Confirmed CPAP: CPAP/PAP Full Face Mask HS ##0 01/08/17 06/07/24 Narcan Prefilled 4 mg inhalation PRN PRN overdose 03/01/21 06/07/24 etodolac 200 mg capsule 200 mg PO Q8H PRN 03/14/24 06/07/24 isosorbide mononitrate 30 mg 30 mg PO DAILY 03/14/24 06/07/24 tablet,extended release 24 hr metoprolol succinate 50 mg 50 mg PO DAILY 03/14/24 06/07/24 tablet,extended release 24 hr quetiapine PO 03/14/24 06/07/24 rosuvastatin 40 mg tablet 40 mg PO DAILY 03/14/24 06/07/24 Previous Rx's Medication Instructions Recorded fluticasone propionate 110 2 puff inhalation BID #3 ea 06/24/21 mcg/actuation HFA aerosol inhaler olodaterol 2.5 mcg/actuation mist 2 inh inhalation Q24H #3 ea 02/24/22 for inhalation (Striverdi Respimat) albuterol sulfate 90 mcg/actuation 2 puff inhalation Q4-6H PRN 03/16/22 aerosol inhaler shortness of breath or wheezing #3 ea gabapentin 300 mg capsule 900 mg (3 x 300 mg) PO TID #540 01/05/23 caps aspirin 81 mg tablet,delayed 81 mg PO DAILY #90 tabs 02/20/23 release (Adult Aspirin Regimen) calcium carbonate 500 mg PO BID #180 tabs 02/20/23 multivitamin with minerals 1 tab PO DAILY #90 tabs 02/20/23 (Multiple Vitamin-Minerals tablet) omeprazole 20 mg capsule,delayed 20 mg PO DAILY #90 caps 02/20/23 release fluoxetine 40 mg capsule (Prozac) 40 mg PO BID #180 caps 03/14/24 tiotropium 2.5 mcg-olodaterol 2.5 2 inh inhalation DAILY #12 grams 03/14/24 mcg/actuation mist for inhalation (Stiolto Respimat) cyclobenzaprine 10 mg tablet 10 mg PO TID PRN muscle spasm 10 07/26/24 days #30 tabs Allergies Allergy/AdvReac Type Severity Reaction Status Date / Time zolpidem [From AMBIEN] Allergy Severe [place] Verified 07/26/24 10:25 FLASH BACKS oxycodone Allergy Unknown Verified 07/26/24 10:25 adhesive tape AdvReac Severe Blister Verified 07/26/24 10:25 tapentadol [TAPENTADOL] AdvReac Intermediate DON'T USE Verified 07/26/24 10:25 PLASTIC TAPE - SKIN FIREY RED Review of Systems <Savannah Gonzalez PA-C - Last Filed: 07/26/24 16:34> Constitutional Constitutional: Denies chills, Denies fatigue, Denies fever(s), Denies frequent falls, Denies lethargy and Denies weakness Eyes Eyes: Denies change in vision, Denies eye discharge, Denies irritation and Denies loss of vision ENT Ears, Nose, Mouth, and Throat: Denies change in voice, Denies dizziness, Reports neck pain, Denies sore throat and Denies throat swelling Cardiovascular Cardiovascular: Denies chest pain, Denies irregular heart rhythm, Denies lightheadedness, Denies palpitations, Denies dyspnea, Denies dyspnea on exertion and Denies orthopnea Respiratory Respiratory: Denies cough, Denies dyspnea, Denies dyspnea on exertion and Denies wheezing Gastrointestinal Gastrointestinal: Denies abdominal pain, Denies change in bowel habits, Denies diarrhea, Denies nausea and Denies vomiting Musculoskeletal Musculoskeletal: Reports neck pain and Denies numbness Integumentary/Breasts Skin/Breast: Denies pruritus, Denies erythema, Denies rash and Denies wounds Neurologic Neurologic: Denies behavioral changes, Denies confusion, Denies dizziness, Denies frequent falls, Denies loss of vision, Denies numbness and Denies weakness Psychiatric Psychiatric: Denies anxiety, Denies behavioral changes, Denies confusion, Denies depression, Denies homicidal ideation and Denies suicidal ideation Endocrine Endocrine: Denies fatigue, Denies flushing and Denies palpitations Hematologic/Lymphatic Hematologic/Lymphatic: Denies easy bruising Allergic/Immunologic Allergic/Immunologic: Denies urticaria, Denies throat swelling and Denies wheezing Patient History <Savannah Gonzalez PA-C - Last Filed: 07/26/24 16:34> Medical History Anxiety Atherosclerotic heart disease of [place] coronary artery without angina pectoris Benign prostatic hyperplasia with lower urinary tract symptoms Cervicalgia Chronic asthma Chronic obstructive pulmonary disease with (acute) exacerbation Depression Essential (primary) hypertension Gastro-esophageal reflux disease without esophagitis Hypoxemia Impaired fasting glucose Lesion of ulnar nerve, 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 Neuropathy Obstructive sleep apnea Other allergic rhinitis Other specified pulmonary heart diseases Polycythemia PTSD (post-traumatic stress disorder) Surgical History History of mandibular surgery History of hernia surgery History of heart artery stent Family History Mother Stroke Sister Stroke Father Suicide Social History household members: spouse Smoking Status: Former smoker alcohol intake: current Smoking Status: Former smoker alcohol intake frequency: holidays/special occasions only Substance Use Type: marijuana Exam <Savannah Gonzalez PA-C - Last Filed: 07/26/24 16:34> Narrative Exam Narrative: Const General:?cooperative, healthy appearing and comfortable [facility] Head:?normal to inspection Ears:?hearing grossly normal bilaterally Nose:?external nose normal Face and sinus:?normal facial exam and sinuses nontender Mouth:?oral mucosae normal Throat:?posterior oropharynx normal Eyes General:?appearance normal, both eyes and all related structures Neck Neck:?normal visual inspection and no lymphadenopathy noted Resp Effort & Inspection:?normal respiratory effort Auscultation:?clear to auscultation bilaterally Cardio Rate:?regular rate Rhythm:?regular rhythm Musculoskeletal No midline tenderness to palpation. Full range of motion. Strength and sensation intact. Neurovascularly intact. Neuro General:?patient alert, patient awake and patient oriented x3 Initial Vital Signs Initial Vital Signs: Vital Signs Temperature 97.0 F L 07/26/24 10:11 Pulse Rate 108 H 07/26/24 10:11 Respiratory Rate 14 07/26/24 10:11 Blood Pressure 141/90 H 07/26/24 10:11 Pulse Oximetry 97 07/26/24 10:11 Oxygen Delivery Method Room Air 07/26/24 10:11 <Benjy Brantley MD - Last Filed: 07/26/24 18:52> Initial Vital Signs Initial Vital Signs: Vital Signs Temperature 97.0 F L 07/26/24 10:11 Pulse Rate 108 H 07/26/24 10:11 Respiratory Rate 14 07/26/24 10:11 Blood Pressure 141/90 H 07/26/24 10:11 Pulse Oximetry 97 07/26/24 10:11 Oxygen Delivery Method Room Air 07/26/24 10:11 Course <Savannah Gonzalez PA-C - Last Filed: 07/26/24 16:34> Orders Ordered: Discontinued Medications Acetaminophen (Acetaminophen 325 Mg Tablet) 650 mg PO NOW ONE Stop: 07/26/24 10:32 Last Admin: 07/26/24 10:34 Dose: 650 mg Documented By: JC Ibuprofen (Ibuprofen 400 Mg Tablet) 400 mg PO NOW ONE Stop: 07/26/24 10:32 Last Admin: 07/26/24 10:35 Dose: 400 mg Documented By: JC Vital Signs Vital signs: Vital Signs - 8 hr 07/26/24 12:20 Pulse Rate 107 H Respiratory Rate 20 Blood Pressure 146/85 H Pulse Oximetry 97 Oxygen Delivery Method Nasal Cannula Oxygen Flow Rate 2 <Benjy Brantley MD - Last Filed: 07/26/24 18:52> Orders Ordered: Discontinued Medications Acetaminophen (Acetaminophen 325 Mg Tablet) 650 mg PO NOW ONE Stop: 07/26/24 10:32 Last Admin: 07/26/24 10:34 Dose: 650 mg Documented By: JC Ibuprofen (Ibuprofen 400 Mg Tablet) 400 mg PO NOW ONE Stop: 07/26/24 10:32 Last Admin: 07/26/24 10:35 Dose: 400 mg Documented By: JC Vital Signs Vital signs: Vital Signs - 8 hr 07/26/24 12:20 Pulse Rate 107 H Respiratory Rate 20 Blood Pressure 146/85 H Pulse Oximetry 97 Oxygen Delivery Method Nasal Cannula Oxygen Flow Rate 2 MDM - Neck Pain/Injury <Savannah Gonzalez PA-C - Last Filed: 07/26/24 16:34> [facility] Narrative Medical decision making narrative: 79-year-old male with past medical history COPD, hypertension, hyperlipidemia, CHF, anxiety, depression, GERD, BPH presents to the ED with 4 days of neck pain. Physical exam is reassuring for no midline tenderness to palpation. No trauma. Patient's symptoms are most consistent with a musculoskeletal sprain/strain versus disc etiology. Prescribed Flexeril for symptom relief. Patient was somewhat tachycardic in the ED today at 107bpm, however he states that he is on home oxygen for COPD and that he forgot to bring his oxygen with him. He endorses that this is how he feels when he has not on oxygen. Patient denies any new cough or increased sputum. Recommend patient follow-up with his PCP. ED return precautions discussed with patient. Patient verbalized understanding. Medical records reviewed: Yes Discharge Plan Departure Patient Disposition: Home Clinical Impression: Neck pain Instructions: DI for Neck Pain Activity Restrictions/Additional Instructions: You were evaluated in the ED today for neck pain. Your neck pain could be due to a musculoskeletal sprain/strain versus a disc issue. You are being prescribed muscle relaxants for symptom relief. Please follow-up with your primary care provider as soon as possible for further evaluation. Return to the ED if you have worsening symptoms, numbness, tingling, weakness. Prescriptions: New cyclobenzaprine 10 mg tablet 10 mg PO TID PRN (Reason: muscle spasm) 10 Days Qty: 30 0RF No Action CPAP: CPAP/PAP Full Face Mask HS Qty: 0 fluticasone propionate 110 mcg/actuation HFA aerosol inhaler 2 puff inhalation BID Qty: 3 1RF Striverdi Respimat 2.5 mcg/actuation mist 2 inh inhalation Q24H Qty: 3 4RF albuterol sulfate 90 mcg/actuation HFA aerosol inhaler 2 puff inhalation Q4-6H PRN (Reason: shortness of breath or wheezing) Qty: 3 3RF aspirin [Adult Aspirin Regimen] 81 mg tablet,delayed release (DR/EC) 81 mg PO DAILY Qty: 90 3RF calcium carbonate 500 mg calcium (1,250 mg) tablet 500 mg PO BID Qty: 180 3RF omeprazole 20 mg capsule,delayed release(DR/EC) 20 mg PO DAILY Qty: 90 3RF Multiple Vitamin-Minerals Tablet 1 tab PO DAILY Qty: 90 3RF gabapentin 300 mg capsule 900 mg PO TID Qty: 540 3RF metoprolol succinate 50 mg tablet extended release 24 hr 50 mg PO DAILY rosuvastatin 40 mg tablet 40 mg PO DAILY quetiapine PO etodolac 200 mg capsule 200 mg PO Q8H PRN isosorbide mononitrate 30 mg tablet extended release 24 hr 30 mg PO DAILY fluoxetine [Prozac] 40 mg capsule 40 mg PO BID Qty: 180 3RF Stiolto Respimat 2.5-2.5 mcg/actuation mist 2 inh inhalation DAILY Qty: 12 3RF Narcan Prefilled 4 mg inhalation PRN PRN (Reason: overdose) Patient Comments: has not used yet Referrals: Franck Rosa DO [Primary Care Provider] - Stand Alone Forms: Patient Portal/API/Survey ED Sign-out <Benjy Brantley MD - Last Filed: 07/26/24 18:52> Cosign ED Attending Coseneidaature Attestation: I was immediately available in the department for consultation. This documentation has been reviewed and I agree with assessment and plan. Supervised by Benjy Brantley MD
== END 2024-07-26 12:21 | disposition home or self-care (01) ==
PROVIDERS: Emergency Provider Student in an Organized Health Care Education/Training Program; Family Provider Family Medicine; PCP Family Medicine
DX: M54.2 Cervicalgia (principal)
CPT/HCPCS: 99282; 99283

== ENCOUNTER → 2024-09-02 14:39 | Outpatient (CLI) | payer OTHER, SELFPAY ==
[2021-03-01 15:49] VITALS: BMI 37.6
--- NOTE | 2024-09-02 14:45 | DI.ECHO.S_ITS ---
[place] [facility] : : [id number] : : [place] : : [id number] : : Phone: [phone] Echocardiogram Report + + :Name: NEY ARCHER Study Date: 09/02/2024 Height: 70.5 in: :[facility] ReadingLocation: Weight: 190 lb : : Gender: Male BSA: 2.1 m2 : :: 1945 Age: 79 yrs BP: 139/81 mmHg: :Reason For Study: CORONARY ARTERY DISEASE : :Ordering Physician: FREDI BLAIRPerformed By: Johana Alfaro : :Referring: FREDI BLAIR : + + Interpretation Summary The left ventricle is normal in size. The left ventricular ejection fraction is normal. The ejection fraction is estimated to be 60-65%. Diastolic parameters suggest a pseudonormalization pattern, consistent with probable elevated filling pressures. The right ventricle is borderline dilated. The right ventricular systolic function is normal. There is mild mitral regurgitation. Compared to the prior echo study, there has been no change in the severity of mitral regurgitation. There is mild to moderate tricuspid regurgitation. Compared to the prior echo exam, there has been an increase in TR severity. The right ventricular systolic pressure is estimated to be at least 44 mmHg based on an estimated right atrial pressure of 8 mm Hg. Previously 36 mmHg. Procedure: A two-dimensional transthoracic echocardiogram with color flow and Doppler was performed. The study quality was technically adequate. Comparison is made with the echocardiogram of 06/13/2019. The patient was in sinus rhythm with heart rates between 59-65 bpm during the exam. The patient had occasional PACs during the exam. Left Ventricle: The left ventricle is normal in size. Proximal septal thickening is noted. There is no thrombus. The ejection fraction is estimated to be 60-65%. The left ventricular ejection fraction is normal. Septal motion is consistent with conduction abnormality. Diastolic parameters suggest a pseudonormalization pattern, consistent with probable elevated filling pressures. Right Ventricle: The right ventricle is borderline dilated. The right ventricular systolic function is normal. Atria: The left atrium is mildly dilated. The left atrium has mildly decreased in size since the prior echo exam. Right atrial size is normal. There is no Doppler evidence for an interatrial shunt. Mitral Valve: The mitral valve leaflets appear to open well. There is mild mitral annular calcification. There is mild mitral regurgitation. Compared to the prior echo study, there has been no change in the severity of mitral regurgitation. Aortic Valve: The aortic valve is trileaflet. The aortic valve opens well. There is mild aortic valve sclerosis. There is no aortic valve stenosis. There is trace aortic regurgitation. Tricuspid Valve: The tricuspid valve is normal. There is mild to moderate tricuspid regurgitation. The right ventricular systolic pressure is estimated to be at least 44 mmHg based on an estimated right atrial pressure of 8 mm Hg. Compared to the prior echo exam, there has been an increase in TR severity. Pulmonic Valve: The pulmonic valve leaflets are thin and pliable; valve motion is normal. There is mild pulmonic regurgitation. Great Vessels: The aortic root is normal size. The dimensions of the ascending aorta are normal. The IVC is dilated (diameter is greater than 2.1 cm) yet it collapses greater than 50% with a sniff. This suggests a right atrial pressure of 8 mm Hg. Pericardium/ Pleura There is no pericardial effusion. There is no pleural effusion. MMode/2D Measurements & Calculations LVIDd: 5.1 cm LVOT diam: 2.1 cm LVIDs: 3.3 cm Ao root diam: 3.3 cm FS: 35.4 % asc Aorta Diam: 3.7 cm EPSS: 0.51 cm Ao Arch Diam (Prox Trans): 3.4 cm IVSd: 0.80 cm LVPWd: 1.1 cm LV jones. diameter/BSA (cm/m^2): 2.5 LV sys. diameter/BSA (cm/m^2): 1.6 LA A2 area: 21.4 cm2 RA long axis: 4.9 cm LA A4 area: 25.0 cm2 RA area: 18.3 cm2 LA length (vol): 6.5 cm RA vol: 58.3 ml LA vol: 69.4 ml RA : 28.4 ml/m2 LA vol index: 33.8 ml/m2 IVC diam: 2.2 cm RVD1 (basal): 4.1 cm RVD2 (mid): 3.0 cm TAPSE: 1.9 cm Doppler Measurements & Calculations Ao V2 max: 184.7 cm/sec LVOT Max [place]: 117.7 cm/sec Ao V2 mean: 127.3 cm/sec LV V1 max P.5 mmHg Ao max P.7 mmHg LV V1 VTI: 28.2 cm Ao mean P.2 mmHg MAKEDA(I,D): 2.5 cm2 Ao V2 VTI: 39.7 cm MAKEDA(V,D): 2.3 cm2 sev ratio: 0.71 MAKEDA indexed to BSA (cm^2/m^2): 1.2 MV E max kenton: 107.4 cm/sec TR max kenton: 293.2 cm/sec MV A max kenton: 81.1 cm/sec TR max P.4 mmHg MV E/A: 1.3 PA V2 max: 119.4 cm/sec Med Peak E' Kenton: 6.9 cm/sec PA V2 mean: 83.6 cm/sec E/E' med: 15.5 PA mean P.1 mmHg Lat Peak E' Kenton: 9.5 cm/sec PA pr(Accel): 37.9 mmHg E/E' lat: 11.3 E/e' average: 13.4 MV dec time: 0.24 sec SV(LVOT): 101.1 ml Reading Physician:05:02 PM
== END ==
PROVIDERS: Family Provider Family Medicine; PCP Family Medicine; Referring Provider Family Medicine; Visit Provider Family Medicine
DX: I50.9 Heart failure, unspecified (principal); E87.5 Hyperkalemia; I08.3 Combined rheumatic disorders of mitral, aortic and tricuspid valves
CPT/HCPCS: 93306

== ENCOUNTER → 2024-10-20 09:46 | Outpatient (CLI) | payer MEDICARE, OTHER, SELFPAY ==
[2021-03-01 15:49] VITALS: BMI 37.6
[2024-10-20 10:58] LABS: Add Manual Diff / Slide Review NO; Basophils Absolute Auto 0 /uL (0-100); Basophils Percent Auto 0.8 % (0-2); Eosinophils Absolute Auto 800 /uL (0-450); Eosinophils Percent Auto 12.7 % (2-4); Hematocrit 40.2 % (41-53); Hemoglobin 13.1 g/dL (13.5-17.5); Lymphocytes Absolute Auto 2000 /uL (1100-4500); Lymphocytes Percent Auto 33.5 % (25-40); Mean Corpuscular HGB Conc 32.5 % (30-36); Mean Corpuscular Hemoglobin 30.6 PG (26-34); Monocytes Absolute Auto 400 /uL (0-900); Monocytes Percent Auto 7.4 % (3-14); Neutrophils Absolute Auto 2800 /uL (1500-7000); Neutrophils Percent Auto 45.6 % (50-75); Platelet Count 164 X10^3/uL (150-400); Red Blood Cell Count 4.28 X10^6/uL (4.5-5.9); Red Cell Distribution Width 14.7 % (11.6-14.8)
[2024-10-20 11:30] LABS: Alanine Aminotransferase 18 IU/L (<50); Albumin Globulin Ratio 1.5 (1.0-2.8); Alkaline Phosphatase 84 U/L (38-126); Aspartate Aminotransferase 30 IU/L (17-59); BUN Creatinine Ratio 14.3 (6-22); Bilirubin Total 0.5 mg/dL (0.2-1.3); Blood Urea Nitrogen 12 mg/dL (9-20); Calcium 9.6 mg/dL (8.4-10.2); Carbon Dioxide 30 mmol/L (22-32); Chloride 103 mmol/L (98-107); Estimated Glomerular Filt Rate > 60 mL/min (>60); Globulin 2.7 g/dL (1.7-4.1); Glucose 112 mg/dL (80-110); HEMOLYSIS < 15 (0-50); Hemoglobin A1C% w Est Avg Glu 5.3 % (4.0-6.0); Potassium 4.2 mmol/L (3.4-5.1); Sodium 138 mmol/L (137-145); Total Protein 6.7 g/dL (6.3-8.2)
[2024-10-22 07:10] LABS: PSA, Total < 0.1 ng/mL (0.0-4.0)
== END ==
LOC: LAB 09:53
PROVIDERS: Family Provider Family Medicine; PCP Family Medicine; Referring Provider Family Medicine; Visit Provider Family Medicine
DX: M54.2 Cervicalgia (principal); R73.01 Impaired fasting glucose
CPT/HCPCS: 36415; 80053; 83036; 84153; 84154; 85025

== ENCOUNTER → 2025-08-03 12:38 | Outpatient (CLI) | payer MEDICARE, OTHER, SELFPAY ==
[2021-03-01 15:49] VITALS: BMI 37.6
[2025-08-03 13:11] LABS: Add Manual Diff / Slide Review NO; Hematocrit 41.3 % (41-53); Hemoglobin 13.7 g/dL (13.5-17.5); Lymphocytes Absolute Auto 1300 /uL (1100-4500); Mean Corpuscular HGB Conc 33.1 % (30-36); Mean Corpuscular Hemoglobin 30.6 PG (26-34); Mean Corpuscular Volume 92.3 fL (80-100); Platelet Count 181 X10^3/uL (150-400)
[2025-08-03 13:17] LABS: Hemoglobin A1C% w Est Avg Glu 5.4 % (4.0-6.0)
[2025-08-03 13:38] LABS: Alanine Aminotransferase 20 IU/L (<50); Albumin 4.0 g/dL (3.5-5.0); Albumin Globulin Ratio 1.5 (1.0-2.8); Alkaline Phosphatase 86 U/L (38-126); Blood Urea Nitrogen 8 mg/dL (9-20); Calcium 9.7 mg/dL (8.4-10.2); Carbon Dioxide 26 mmol/L (22-32); Chloride 100 mmol/L (98-107); Cholesterol 148 mg/dL (140-199); Estimated Glomerular Filt Rate > 60 mL/min (>60); Globulin 2.7 g/dL (1.7-4.1); Glucose 175 mg/dL (70-99); HDL Cholesterol 93 mg/dL (40-60); HEMOLYSIS < 15 (0-50); Potassium 4.3 mmol/L (3.4-5.1); Sodium 137 mmol/L (137-145); Total Protein 6.7 g/dL (6.3-8.2); Triglycerides 150 mg/dL (35-150)
== END ==
PROVIDERS: Family Provider Family Medicine; PCP Family Medicine; Referring Provider Family Medicine; Visit Provider Family Medicine
DX: R73.01 Impaired fasting glucose (principal); R89.8 Other abnormal findings in specimens from other organs, systems and tissues
CPT/HCPCS: 36415; 80053; 80061; 83036; 85025